=== PATIENT | female | born 1950 | race Caucasian/White ===

== ENCOUNTER 2017-04-05 20:11 | Emergency (ER) | payer MEDICARE, MEDICAID, SELFPAY ==
[2017-04-05 20:12] VITALS: BP 131/72; PULSE 88; RESP 16; TEMP 36.3; BMI 35.9
[2017-04-05] MEDS: 0.9% Normal Saline 1,000 ML 1000 ML IV (22:28)
[2017-04-05] MEDS: Ondansetron 4 MG/2 ML Vial IV (22:28)
--- NOTE | 2017-04-05 22:32 | ED.VISSUMM ---
- ER Visit Summary Date of Service: 04/05/17 Chief Complaint: Nausea, diarrhea History of Present Illness: The patient is a 66 F here with daughter with nausea and diarrhea for more than 10 days. Was discharged from [facility] 10 days after 3 day stay. States had similar symptoms. Chronic kidney disease. States over past 3 days has not eaten. Decreased appetite with her nausea. No vomiting. No fevers. No chest pains or cough. No urinary symptoms. In addition states her blood sugars have run high in the 500s today. She is on Lantus 55 units at night. She is also on Januvia once a day. Diabetes managed by her PCP. No recent adjustments. Saw her PCP today, sent to the emergency department. She states she was at [facility] today, labs were run, states nothing was done therefore they came here. They state did not p.o. challenge her. In addition states she gave herself 65 units of Lantus at 2 PM due to her high sugars. She is not on any short acting insulin. States she is having 3 episodes of diarrhea per day since being discharged. No recent antibiotics. Physical Examination: General: Alert and oriented ?3, no acute distress. Nontoxic HEENT: Normocephalic, atraumatic. Dry mucosa membranes Neck: supple, nontender. Cardiovascular: Regular rate and rhythm, no murmurs Respiratory: Normal breath sounds, symmetric, no distress Abdomen: Soft, nontender, nondistended Extremities: Nontender, no edema, pulses intact ?4 Neuro: no focal neurological deficits. Test Results: CBC: Normal. BMP creatinine 2.24. Potassium 3.1. Anion gap 8, blood glucose 59. Ketone negative. Emergency Department Course and Treatment: Patient nontoxic. Dry mucosa membranes. She given IV fluids and Zofran. Symptoms improved. Potassium 3.1, orally replaced. Glucose did return a 59, she is asymptomatic. She is given glucose orally along with yogurt. Tolerating oral intake. Creatinine 2.24. Obtain records from [facility] with stable creatinine. Continue oral hydration at home. They request docketing specialist, she is given ALIZE wang information for follow-up with her diabetes. Prescription for Zofran along with potassium given. She will continue oral hydration at home. She will monitor sugars and follow-up as an outpatient. She will return if any worsening symptoms. Treatment Plan: Symptomatic Disposition: Discharge Impression: 1. Nausea resolved 2. Diarrhea- stable 3. Chronic kidney disease 4. History diabetes This note was generated with [email or web address] dictation software. It may contain incorrect words, spelling, and punctuation that were not noted in review of the chart prior to signing ED Disposition - Plan for ED Patient: Disposition: Home or Assisted Living Chief Complaint: General Illness Diagnosis: Chronic kidney disease, History of diabetes mellitus, Nausea, Hypokalemia Instructions: ED Diet Vomiting Diarrhea, ED Renal Failure Chronic Prescriptions: Ondansetron [Zofran Odt] 8 mg PO Q8H PRN PRN #10 PRN Reason: Nausea Potassium Chloride [K-Dur] 20 meq PO DAILY #7 tablet Referrals: Radha Nettles [Primary Care Provider] - Louisa Wang SCHOOL BOAT DRIVER-C [Nurse Practitioner] - 3-5 Days
--- NOTE | 2017-04-05 22:35 | ED.DCSUM_ITS ---
- ER Visit Summary Date of Service: 04/05/17 Chief Complaint: Nausea, diarrhea History of Present Illness: The patient is a 66 F here with daughter with nausea and diarrhea for more than 10 days. Was discharged from [facility] 10 days after 3 day stay. States had similar symptoms. Chronic kidney disease. States over past 3 days has not eaten. Decreased appetite with her nausea. No vomiting. No fevers. No chest pains or cough. No urinary symptoms. In addition states her blood sugars have run high in the 500s today. She is on Lantus 55 units at night. She is also on Januvia once a day. Diabetes managed by her PCP. No recent adjustments. Saw her PCP today, sent to the emergency department. She states she was at [place] [facility] today, labs were run, states nothing was done therefore they came here. They state did not p.o. challenge her. In addition states she gave herself 65 units of Lantus at 2 PM due to her high sugars. She is not on any short acting insulin. States she is having 3 episodes of diarrhea per day since being discharged. No recent antibiotics. Physical Examination: General: Alert and oriented ?3, no acute distress. Nontoxic HEENT: Normocephalic, atraumatic. Dry mucosa membranes Neck: supple, nontender. Cardiovascular: Regular rate and rhythm, no murmurs Respiratory: Normal breath sounds, symmetric, no distress Abdomen: Soft, nontender, nondistended Extremities: Nontender, no edema, pulses intact ?4 Neuro: no focal neurological deficits. Test Results: CBC: Normal. BMP creatinine 2.24. Potassium 3.1. Anion gap 8, blood glucose 59. Ketone negative. Emergency Department Course and Treatment: Patient nontoxic. Dry mucosa membranes. She given IV fluids and Zofran. Symptoms improved. Potassium 3.1, orally replaced. Glucose did return a 59, she is asymptomatic. She is given glucose orally along with yogurt. Tolerating oral intake. Creatinine 2.24. Obtain records from [facility] with stable creatinine. Continue oral hydration at home. They request ui ux web developer, she is given ALIZE wang information for follow-up with her diabetes. Prescription for Zofran along with potassium given. She will continue oral hydration at home. She will monitor sugars and follow-up as an outpatient. She will return if any worsening symptoms. Treatment Plan: Symptomatic Disposition: Discharge Impression: 1. Nausea resolved 2. Diarrhea- stable 3. Chronic kidney disease 4. History diabetes This note was generated with [employer] dictation software. It may contain incorrect words, spelling, and punctuation that were not noted in review of the chart prior to signing ED Disposition - Plan for ED Patient: Disposition: Home or Assisted Living Chief Complaint: General Illness Diagnosis: Chronic kidney disease, History of diabetes mellitus, Nausea, Hypokalemia Instructions: ED Diet Vomiting Diarrhea, ED Renal Failure Chronic Prescriptions: Ondansetron [Zofran Odt] 8 mg PO Q8H PRN PRN #10 PRN Reason: Nausea Potassium Chloride [K-Dur] 20 meq PO DAILY #7 tablet Referrals: Radha Nettles [Primary Care Provider] - Louisa Wang FOOD SERVICE CLERK-C [Nurse Practitioner] - 3-5 Days
[2017-04-05 22:42] LABS: Hematocrit 37.1 % (37-47); Hemoglobin 11.9 g/dl (12.0-15.0); Mean Corp Hgb Conc 32.1 g/gl (32-36); Mean Corpuscular Volume 93.5 fL (81-99); Mean Platelet Vol. 9.4 fl (6.2-12.0); Platelet Count 353 K/mm3 (150-450); RBC Distribution Width CV 13.2 % (11.6-14.6); Red Blood Count 3.97 M/mm3 (4.2-5.4); Scan Indicated on CBC? Y/N NO; White Blood Count 8.1 K/mm3 (4.4-11.0)
[2017-04-05 22:51] LABS: Bedside Glucose 59 mg/dL (70-110)
[2017-04-05 22:55] LABS: Anion Gap 8 (5-15); BUN 17 mg/dL (7-18); BUN/Creat Ratio 7.6 RATIO (10-20); Calcium,Total 9.3 mg/dL (8.5-10.1); Chloride 104 mmol/L (98-107); Creatinine, Serum 2.24 mg/dL (0.55-1.02); EST Glomerular Filtration Rate 23 mL/min (>60); Est Glom Filt Rate - Afr Amer 28 mL/min (>60); Estimated Creatinine Clearance 21.62 ml/min; Glucose 59 mg/dL (74-106); Potassium 3.1 mmol/L (3.5-5.1); Sodium Level 140 mmol/L (136-145)
[2017-04-05 23:21] LABS: Bedside Glucose 104 mg/dL (70-110)
[2017-04-06 00:35] VITALS: BP 129/72; PULSE 71; RESP 16; O2SAT 97
== END 2017-04-06 00:36 | disposition home or self-care (01) ==
PROVIDERS: Emergency Provider Emergency Medicine; Family Provider Family Medicine; PCP Family Medicine
DX: R11.0 Nausea (principal); R19.7 Diarrhea, unspecified; E11.9 Type 2 diabetes mellitus without complications; N18.4 Chronic kidney disease, stage 4 (severe); I12.9 Hypertensive chronic kidney disease with stage 1 through stage 4 chronic kidney disease, or unspecified chronic kidney disease; Z72.0 Tobacco use
CPT/HCPCS: 80048; 82009; 82962; 85027; 96361; 96374; 99284; J7030; A4216; J2405

== ENCOUNTER → 2017-08-02 16:05 | Outpatient (CLI) | payer MEDICARE, MEDICAID, SELFPAY ==
[2017-08-02 17:41] LABS: ALB/GLOB Ratio 0.7 RATIO (0.9-2.4); AST(SGOT) 12 U/L (15-37); Alanine Aminotransfer ALT/SGPT 12 U/L (13-56); Albumin, Serum 2.9 g/dL (3.2-5.0); Alkaline Phosphatase 68 U/L (45-117); Amylase 22 U/L (25-115); Anion Gap 8 (5-15); BUN 16 mg/dL (7-18); BUN/Creat Ratio 7.5 RATIO (10-20); Calcium,Total 9.2 mg/dL (8.5-10.1); Chloride 107 mmol/L (98-107); Creatinine, Serum 2.12 mg/dL (0.55-1.02); EST Glomerular Filtration Rate 25 mL/min (>60); Est Glom Filt Rate - Afr Amer 30 mL/min (>60); Globulin 3.9 g/dL (2.2-4.2); Glucose 267 mg/dL (74-106); Lipase 147 U/L (73-393); Potassium 4.2 mmol/L (3.5-5.1); Protein, Total 6.8 g/dL (6.4-8.2); Sodium Level 136 mmol/L (136-145)
== END ==
PROVIDERS: Family Provider Family Medicine; PCP Internal Medicine; Visit Provider Internal Medicine
DX: R10.9 Unspecified abdominal pain (principal)
CPT/HCPCS: 36415; 80053; 82150; 83690

== ENCOUNTER → 2017-09-07 14:37 | Outpatient (CLI) | payer MEDICARE, MEDICAID, SELFPAY ==
--- NOTE | 2017-09-07 15:00 | EKG12_ITS ---
Test Reason : OP Blood Pressure : / mmHG Vent. Rate : 073 BPM Atrial Rate : 073 BPM P-R Int : 166 ms QRS Dur : 092 ms QT Int : 414 ms P-R-T Axes : 063 010 045 degrees QTc Int : 456 ms Normal sinus rhythm Normal ECG Confirmed by MADISON JACOBS, ANTHONY ([id number]), editorial project manager CECY CARUSO ([id number] on 09/09/2017 1:25:08 PM Referred By: Ricardo Cao Confirmed By:ANTHONY WALLACE MD
[2017-09-07 16:09] LABS: Cholesterol 327 mg/dL (200); High Density Lipoprotein 65 mg/dL; Triglycerides 310 mg/dL; Very Low Density Lipoprotein 62 mg/dL (5-40)
[2017-09-07 21:29] LABS: Hemoglobin A1c 8.1 % (4.2-6.3)
== END ==
PROVIDERS: Family Provider Internal Medicine; PCP Internal Medicine; Visit Provider Internal Medicine
DX: E11.9 Type 2 diabetes mellitus without complications (principal)
CPT/HCPCS: 36415; 80061; 83036; 93005

== ENCOUNTER → 2017-10-22 09:49 | Outpatient (CLI) | payer MEDICARE, MEDICAID, SELFPAY ==
[2017-10-22 11:01] LABS: Absolute Lymphocyte Count 1.33 X10^3/ul (0.83-4.51); Basophil# 0.06 X10^3/uL; Basophil% 0.6 % (0-1); Eosinophil# 1.12 X10^3/uL; Eosinophils% 11.2 % (0-5); Hematocrit 36.1 % (37-47); Hemoglobin 11.5 g/dl (12.0-15.0); Lymphocyte # 1.33 X10^3/ul (4.0); Lymphocyte % 13.3 % (19-41); Mean Corp Hgb Conc 31.9 g/gl (32-36); Mean Corpuscular Hgb 29.9 pg (27.0-32.0); Mean Corpuscular Volume 93.8 fL (81-99); Mean Platelet Vol. 9.4 fl (6.2-12.0); Monocyte# 0.43 X10^3/uL; Monocyte% 4.3 % (0-10); Neutrophil % 70.3 % (47-70); Platelet Count 296 K/mm3 (150-450); RBC Distribution Width SD 46.1 fl (35.1-43.9); Red Blood Count 3.85 M/mm3 (4.2-5.4)
[2017-10-22 11:04] LABS: POSITIVE COUNT NO; POSITIVE DIFFERENTIAL NO; POSITIVE MORPHOLOGY NO
[2017-10-22 11:19] LABS: Albumin, Serum 3.2 g/dL (3.2-5.0); BUN 21 mg/dL (7-18); Calcium,Total 9.3 mg/dL (8.5-10.1); Chloride 110 mmol/L (98-107); EST Glomerular Filtration Rate 25 mL/min (>60); Est Glom Filt Rate - Afr Amer 30 mL/min (>60); Glucose 185 mg/dL (74-106); Phosphorus 3.9 mg/dL (2.5-4.9); Potassium 4.6 mmol/L (3.5-5.1); Sodium Level 143 mmol/L (136-145)
== END ==
PROVIDERS: Family Provider Internal Medicine; PCP Internal Medicine; Visit Provider Internal Medicine Nephrology
DX: N18.4 Chronic kidney disease, stage 4 (severe) (principal)
CPT/HCPCS: 36415; 80069; 81001; 82043; 82570; 84156; 84550; 85025

== ENCOUNTER → 2018-01-14 09:57 | Outpatient (CLI) | payer MEDICARE, MEDICAID, SELFPAY ==
[2018-01-14 11:18] LABS: Hemoglobin A1c 9.4 % (4.2-6.3)
--- OUTSIDE RECORDS SUMMARY | 2018-03-10 19:33 | XMS RPT_ITS ---
:1950 Author Organization OHIP Support Name Relationship Address Phone PRABHA JAVED Unavailable [address] + [address] [place] [id number] R Unavailable Unavailable Unavailable JAVED, CRYSTAL Unavailable [address] + [address] [place] [id number] R Unavailable Unavailable Unavailable JAVED, CRYSTAL Unavailable Unavailable + JAVED, CRYSTAL Unavailable [address] + [address] [place] [id number] R Unavailable Unavailable Unavailable JAVED, CRYSTAL Unavailable [address] + [address] [id number] R Unavailable Unavailable Unavailable JAVED, CRYSTAL Unavailable [address] + [address] [place] [id number] R Unavailable Unavailable Unavailable JAVED, CRYSTAL Unavailable [address] + [address] [id number] R Unavailable Unavailable Unavailable JAVED, CRYSTAL Unavailable [address] + [address] [place] [id number] R Unavailable Unavailable Unavailable JAVED, CRYSTAL Unavailable [address] + [address] [id number] R Unavailable Unavailable Unavailable JAVED, CRYSTAL Unavailable [address] + [address] [place] [id number] R Unavailable Unavailable Unavailable JAVED, CRYSTAL Unavailable [address] + [address] [place] [id number] R Unavailable Unavailable Unavailable JAVED, CRYSTAL Unavailable [address] + [address] [phone] R Unavailable Unavailable Unavailable JAVED, CRYSTAL Unavailable [address] + [address] [phone] R Unavailable Unavailable Unavailable JAVED, CRYSTAL Unavailable Unavailable + RUEL CURRY Unavailable Unavailable + PRABHA JAVED Unavailable [address] [facility] [address] [place] [id number] R Unavailable Unavailable Unavailable Care Team Providers Name Role Phone Tho Radha A Attending Unavailable Longsdorf, Radha A Primary Care Unavailable Longsdorf, Radha A Admitting Unavailable Longsdorf, Radha A Attending Unavailable Longsdorf, Radha A Primary Care Unavailable Longsdorf, Radha A Primary Care Unavailable Lennox High Admitting Unavailable Lennox High Attending Unavailable VIRGINIAS, AZJIGAR Admitting Unavailable BAKHOUS, AZIZ Attending Unavailable Longsdorf, Radha A Primary Care Unavailable BAKHOUS, AZIZ Admitting Unavailable BAKHOUS, AZIZ Attending Unavailable Longsdorf, Radha A Primary Care Unavailable Longsdorf, Radha A Referring Unavailable Longsdorf, Radha A Primary Care Unavailable Corey Parry Admitting Unavailable Corey Parry Attending Unavailable MD Misha Brown MD Admitting Unavailable MD Misha Brown MD Attending Unavailable Longsdorf, Radha A Primary Care Unavailable Corey Parry Admitting Unavailable HoracioorsovCorey Attending Unavailable Longsdorf, Radha A Primary Care Unavailable Longsdorf, Radha A Attending Unavailable Longsdorf, Radha A Primary Care Unavailable Longsdorf, Radha A Attending Unavailable Longsdorf, Radha A Primary Care Unavailable Longsdorf, Radha A Primary Care Unavailable Bala Ibarra Admitting Unavailable Bala Ibarra Attending Unavailable Nicholas, Qarab H Consulting Unavailable Longsdorf, Radha A Attending Unavailable Longsdorf, Radha A Primary Care Unavailable Longsdorf, Radha A Admitting Unavailable Longsdorf, Radha A Primary Care Unavailable Ivanauskgómez, Saulius Admitting Unavailable Ivanaeve Saulius Attending Unavailable Misha Brown Admitting Unavailable Misha Brown Attending Unavailable Longsdorf, Radha A Primary Care Unavailable Misha Brown Admitting Unavailable Misha Brown Attending Unavailable Longsdorf, Radha A Primary Care Unavailable Stephanie, Misha D Admitting Unavailable Stephanie, Misha D Attending Unavailable Longsdorf, Radha A Primary Care Unavailable Bakhous, Aziz Admitting Unavailable Bakhous, Aziz Attending Unavailable Longsdorf, Radha A Primary Care Unavailable Sleik, Khaled Attending Unavailable Longsdorf, Radha A Primary Care Unavailable Sleik, Khaled Attending Unavailable Longsdorf, Radha A Primary Care Unavailable Stephanei, Misha D Admitting Unavailable Stephanie, Misha D Attending Unavailable Longsdorf, Radha A Primary Care Unavailable Sleik, Khaled Attending Unavailable Longsdorf, Radha A Primary Care Unavailable Sleik, Khaled Attending Unavailable Longsdorf, Radha A Primary Care Unavailable Longsdorf, Radha A Primary Care Unavailable Ivanauskas, Saulius Admitting Unavailable Ivanauskas Saulius Attending Unavailable Longsdorf, Radha A Primary Care Unavailable Lennox High Admitting Unavailable Lennox High Attending Unavailable Bakhous, Aziz Admitting Unavailable Bakhous, Aziz Attending Unavailable Longsdorf, Radha A Primary Care Unavailable DAVID YING Attending Unavailable LONGSDORF, RADHA WEN Primary Care Unavailable RIEHMSANDRAY L Attending Unavailable SELF, SELF Referring Unavailable RIEHM, JES L Attending Unavailable RIEHM, JES L Referring Unavailable RIEHM, JES L Attending Unavailable RIEHM, JES L Referring Unavailable Le, Mir Attending Unavailable LONGSDORF, RADHA Primary Care Unavailable Louisa Solorzano FOREIGN EXCHANGE CLERK-C Attending Unavailable LONGSDORF, RADHA Referring Unavailable LONGSDORF, RADHA Primary Care Unavailable Oleghe, Efewongbe Attending Unavailable LONGSDORF, RADHA Referring Unavailable Oleghe, Efewongbe Attending Unavailable LONGSDORF, RADHA Referring Unavailable LONGSDORF, RADHA Primary Care Unavailable Oleghe, Efewongbe Attending Unavailable Oleghe, Efewongbe Referring Unavailable LONGSDORF, RADHA Primary Care Unavailable Oleghe, Efewongbe Attending Unavailable Oleghe, Efewongbe Referring Unavailable LONGSDORF, RADHA Primary Care Unavailable Oleghe, Efewongbe Attending Unavailable Oleghe, Efewongbe Referring Unavailable Oleghe, Efewongbe Primary Care Unavailable Oleghe, Efewongbe Attending Unavailable Oleghe, Efewongbe Referring Unavailable Oleghe, Efewongbe Primary Care Unavailable Paulie Wallace Attending Unavailable Oleghe, Efewongbe Referring Unavailable Oleghe, Efewongbe Attending Unavailable Oleghe, Efewongbe Referring Unavailable Bakhous, Aziz Attending Unavailable Oleghe, Efewongbe Primary Care Unavailable Bakhous, Aziz Referring Unavailable Oleghe, Efewongbe Attending Unavailable Oleghe, Efewongbe Referring Unavailable Oleghe, Efewongbe Primary Care Unavailable Oleghe, Efewongbe Attending Unavailable Oleghe, Efewongbe Referring Unavailable Oleghe, Efewongbe Primary Care Unavailable PROBLEMS PROBLEMS DATE TYPE CONDITION / CODE ATTENDING STATUS SOURCE 10/31/2017 Unknown E11.9 - Type 2 Oleghe, Active [place] diabetes mellitus [facility] without Hospital complications / Repository E11.9(ICD-10) 10/31/2017 Unknown Z79.4 - intermediate card tender Oleghe, Active [place] (current) use of [facility] insulin / Hospital Z79.4(ICD-10) Repository 10/31/2017 Unknown Z12.31 - Encounter Oleghe, Active [place] for screening [facility] mammogram for Hospital malignant neoplasm Repository of breast / Z12.31(ICD-10) 10/31/2017 Unknown M81.0 - Age-related Oleghe, Active [place] osteoporosis [facility] without current Hospital pathological Repository fracture / M81.0(ICD-10) 10/12/2017 Unknown R42 - Dizziness and MoodisPaulie muro Active [place] giddiness / Community R42(ICD-10) Hospital Repository 08/16/2017 Unknown R10.9 - Unspecified Oleghe, Active [place] abdominal pain / [facility] R10.9(ICD-10) Hospital Repository 08/03/2017 Unknown I10 - Essential Oleghe, Active [place] (primary) [facility] hypertension / Hospital I10(ICD-10) Repository 06/03/2017 Admitting Pain in left hip / JES DANIEL[facility] Diagnosis M25.552(ICD-10) System ([place]) Repository 06/03/2017 Admitting Pain in left knee / JES DANIELSON Active [facility] Diagnosis M25.562(ICD-10) [place] ([place] Repository PROCEDURES PROCEDURES No Procedure Records FoundRESULTS RESULTS HEMOGLOBIN A1C Collected: 01/14/2018 Status: F Source: [place] 10:21 AM [facility] [place] TYPE CODE TESTS RESULT OUT OF RANGE REFERENCE UNITS LAB L501.9985 4.2-6.3 % High HGB A1C 9.4 Performed By: #### L501.9985 #### [place] [facility] [address] [place], [address] INTERNAL MEDICINE Observed: 11/11/2017 Status: F Source: [place] OFFICE VISIT 12:53 PM [facility] [address] [place] [address] [place] [address] OFFICE VISIT Date of Service: 10/31/17 MR#: [id number] Acct: [id number] Name: JOSH JAVED Karely Rep #: [id number] : 1950 Provider: Ricardo Cao MD Age/Sex: 67/F Location: [facility] Status: Signed Intake Vital Signs10/31/17 Height 5 ft 4 in Intake Visit Reasons: 1 mo f/u Chief Complaint: follow-up visit Is patient in pain?: No Allergies azithromycin Allergy (Severe, Verified 08/02/17 15:02) Diarrhea cefaclor [From Ceclor] Allergy (Severe, Verified 08/02/17 15:02) Unknown morphine Allergy (Severe, Verified 08/02/17 15:02) Go Nuts Penicillins Allergy (Severe, Verified 08/02/17 15:02) Unknown Medications acetaminophen ER 650 mg tablet,extended release 650 mg PO TID tab 05/02/17 [History Confirmed 08/02/17] gytjoie-lsmtxezxuaplv-qcyvlbdx 250 mg-250 mg-65 mg tablet 1 tab PO BID tab 05/02/17 [History Confirmed 09/23/17] OneTouch Ultra2 kit See Dose Instructions .ROUTE .MEDSUPPLY #1 ea NS 05/05/17 [Rx Confirmed 08/02/17] insulin glargine (U- 100) 100 unit/mL subcutaneous solution 48 unit SC QHS #10 ml 08/02/17 [Rx Confirmed 08/02/17] ondansetron HCl 4 mg tablet 4 mg PO BID-TID PRN #20 tab 08/02/17 [Rx Confirmed 08/02/17] trazodone 150 mg tablet 300 mg PO QDAY tab 08/02/17 [History Confirmed 08/02/17] duloxetine 30 mg capsule,delayed release 90 mg PO QDAY cap 09/23/17 [History Confirmed 09/23/17] ezetimibe 10 mg tablet 10 mg PO DAILY #90 tab 09/23/17 [Rx Confirmed 09/23/17] sitagliptin 100 mg tablet 100 mg PO QDAY #90 tab 09/23/17 [Rx Confirmed 09/23/17] flash glucose scanning reader See Dose Instructions .ROUTE .MEDSUPPLY #1 ea 11/04/17 [Rx] Post menopausal: Yes PFSH Medical History Environmental allergies (Chronic) Anxiety and depression (Chronic) Arthritis (Chronic) Back problem (Chronic) Bone fracture (Chronic) Cataracts, bilateral (Chronic) Diabetes type 2, controlled (Chronic) GI problem (Chronic) Headache (Chronic) HTN (hypertension) (Chronic) High cholesterol (Chronic) High triglycerides (Chronic) IBS (irritable bowel syndrome) (Chronic) Kidney disease (Chronic) Osteoporosis (Chronic) Surgical History History of cholecystectomy (Acute) History of hysterectomy (Acute) Family History Unknown Arthritis Breast cancer Diabetes Heart disease Hypertension High cholesterol Kidney disease Mother Anxiety Arthritis blood clots Depression Hypertension H/O ulcer disease Osteoporosis Father Anxiety Arthritis Depression Myocardial infarction Hypertension Kidney disease Grandmother Myocardial infarction Heart disease Social History Smoking Status: Current some day smoker alcohol intake: never substance use type: does not use HPI HPI Chief Complaint: follow-up visit Details: JOSH JAVED, is a 67yo F who presents to the office today for follow-up of her chronic medical conditions. She has a chronic history of insulin-dependent diabetes mellitus which is largely poorly controlled. She has been inconsistently taking her insulin and has noted blood sugar swings. She does not properly with a log at this time. She reports a history of osteoporosis diagnosed several years ago however is currently not on medication and does not take calcium or vitamin D supplements. ROS Const Constitutional: No weight change, body ache, chills, fatigue, sleep problems, fever(s), change in appetite, snoring, weakness, frequent falls, headache(s) or excessive sweating Eyes Eyes: No change in vision, eye pain, light sensitivity or blurry vision ENT ENT: No headache(s), abnormal hearing, ear pain, tinnitus, nasal congestion, sore throat or neck pain Resp Respiratory: No snoring, cough, shortness of breath or wheezing Cardio Cardiology: No excessive sweating, chest pain at rest, chest pain with exertion, shortness of breath, dyspnea on exertion, palpitations, orthopnea or lightheadedness Gastro GI: No abdominal pain, change in bowel habits, constipation, diarrhea, vomiting, nausea/dyspepsia or cramping Genitourinary-Female: No burning urination, painful urination, urinary incontinence, urinary frequency, abnormal vaginal bleeding, pelvic pain or other Musc Musculoskeletal: No neck pain, abnormal walking, joint pain, back pain, limited range of motion, numbness, tingling or muscle weakness Skin Skin: No redness, dry skin, itching, lesions, wounds or rash Neuro Neurology: No weakness, frequent falls, headache(s), abnormal hearing, abnormal walking, numbness, tingling, abnormal speech, dizziness or memory loss Psych Psychiatric: No change in appetite, No memory loss, No anxiety, No depression, No Thoughts of harming yourself/Others Endo Endocrine: No fatigue, excessive sweating, cold intolerance, increased thirst/drinking, heat intolerance, flushing or increased hunger Aller/Imm Allergy/Immunologic: No wheezing, itchy eyes, hives or seasonal allergy symptoms Lyle/Lymp Hematologic/Lymphatic: No easy bleeding, easy bruising or enlarged lymph nodes Exam Const General: cooperative, no acute distress Orientation: alert, awake, oriented x3 [facility] Head: atraumatic, normocephalic Ears: hearing grossly normal bilaterally Resp Effort AND Inspection: normal respiratory effort, able to speak in complete sentences Auscultation: Bilateral: Clear to Auscultation Cardio Rate: regular rate Rhythm: regular rhythm Heart Sounds: S1 normal, S2 normal GI Palpation: soft, no hepatosplenomegaly Musc Musculoskeletal: No muscle weakness Neuro General: alert, awake, oriented x3, moves all extremities, CN's II-XI intact bilaterally Extrem General: no clubbing, cyanosis or edema Psych Appearance: grossly normal Mood: congruent mood Affect: normal affect Assessment AND Plan 1. Diabetes mellitus type 2, insulin dependent E11.9; Z79.4 Plan Poorly controlled. This is likely due to poor compliance. Compliance encouraged. Now open to diabetes education, she was referred. Advised to come with a log. Continue current medication. Orders Orders: Referrals: 2. Osteoporosis M81.0 Plan History of. Currently not on any medication or supplements. Repeat bone density ordered. Calcium and vitamin D supplements and strongly encouraged. Orders Orders: 3. CKD (chronic kidney disease), stage IV N18.4 Plan Stable. Currently follows up with nephrology. No TANA or ARB's per nephrology due to Renal failure. 4. Hyperlipidemia E78.5 Plan Poorly controlled. Patient not very tolerant to medications. Lifestyle and dietary modifications discussed. 5. Health care maintenance Z00.00 Plan Mammogram ordered. Not open to colonoscopy or flu shot. Has received her pneumonia vaccines. Not open to shingles vaccine at this time. This note was generated with [employer] software. It may contain incorrect words, spelling, and punctuation that were not noted in checking the note before signing. Plan Detail Other Orders Orders: Coding Level of Care Code Off vis,est,level 4 Diagnoses Diabetes mellitus type 2, insulin dependent E11.9; Z79.4 Osteoporosis M81.0 CKD (chronic kidney disease), stage IV N18.4 Hyperlipidemia E78.5 Health care maintenance Z00.00 11/11/17 1238 <Electronically signed by Ricardo Cao MD> Date Ricardo Cao MD Cosigner Signature: Date (if applicable) CC: MICROALB/CREAT RATIO Collected: 10/24/2017 Status: F Source: [place] 3:50 PM [facility] REPOSITORY TYPE CODE TESTS RESULT OUT OF REFERENCE UNITS RANGE LAB 86861742(L 0.0-1.9 mg/dL OINC) Ur High Microalbumin 7.3 LAB 27743084(L 20.0-300.0 mg/dL OINC) Ur Creat Normal 62.0 LAB 05321265(L 0-30 ug/mg OINC) Microalb/Creat High 118 Performed By: #### [id number] #### [facility] [place] [address] UA COMPLETE Collected: 10/24/2017 Status: F Source: [place] 3:26 PM [facility] REPOSITORY TYPE CODE TESTS RESULT OUT OF RANGE REFERENCE UNITS LAB 43254217( Yellow LOINC) Normal UA Color Yellow LAB 68545311( Clear LOINC) Normal UA Clarity Clear LAB 32182331( Negative LOINC) UA Glucose Abnormal 3+ LAB 66274247( Negative LOINC) Normal UA Bili Negative LAB 65060736( Negative LOINC) Normal UA Ketones Negative LAB 75911634( 1.003-1.030 LOINC) Normal UA Spec Grav 1.013 LAB 59372310( 4.6-8.0 LOINC) Normal UA pH 5.0 LAB 08239305( Negative LOINC) Normal UA Protein Negative LAB 60964655( mg/dL LOINC) Normal UA Urobilinogen Negative LAB 14184981( Negative LOINC) Normal UA Nitrite Negative LAB 53923872( Negative LOINC) Normal UA Blood Negative LAB 42951987( Negative LOINC) UA Leuk Est Abnormal 3+ LAB 81722634( 0-3 /HPF LOINC) UA RBC Abnormal 3-5 LAB 71495190( 0-5 /HPF LOINC) UA WBC Abnormal >50 LAB 30407736( 0-5 /HPF LOINC) Normal UA Squam Epithelial 0-5 LAB 86807484( None /HPF LOINC) UA Bacteria Abnormal 2+ LAB 14573997( Trace /LPF LOINC) UA Mucous Abnormal Trace Performed By: #### [id number] #### [facility] [address] [place] [address] U CREATININE Collected: 10/24/2017 Status: F Source: [place] 3:26 PM [facility] REPOSITORY TYPE CODE TESTS RESULT OUT OF RANGE REFERENCE UNITS LAB 70705585(L 20-300 mg/dL OINC) U Normal Creatinine 72 Performed By: #### [id number] #### [facility] [place] [address] U PROTEIN Collected: 10/24/2017 Status: F Source: [place] 3:26 PM [facility] REPOSITORY TYPE CODE TESTS RESULT OUT OF REFERENCE UNITS RANGE LAB 80969629(LO 1-14 mg/dL INC) Ur High Total Protein 25 Performed By: #### [id number] #### [facility] [address] [place] [address] CBC W/DIFF, AUTOMATED Collected: 10/22/2017 Status: F Source: [place] 10:05 AM [facility] [place] TYPE CODE TESTS RESULT OUT OF RANGE REFERENCE UNITS LAB L100.1000 4.4-11.0 K/mm3 Normal WBC 10.0 LAB L100.1200 4.2-5.4 M/mm3 Low RBC 3.85 LAB L100.1300 12.0-15.0 g/dl Low HGB 11.5 LAB L100.1400 37-47 % Low HCT 36.1 LAB L100.1500 81-99 fL Normal MCV 93.8 LAB L100.1600 27.0-32.0 pg Normal MCH 29.9 LAB L100.1700 32-36 g/gl Low MCHC 31.9 LAB L100.1810 11.6-14.6 % Normal RDW CV 14.0 LAB L100.1820 35.1-43.9 fl High RDW SD 46.1 LAB L100.1900 150-450 K/mm3 Normal PLT 296 LAB L100.2000 6.2-12.0 fl Normal MPV 9.4 LAB L100.2100 47-70 % High NEUT% 70.3 LAB L100.2200 19-41 % Low LY% 13.3 LAB L100.2300 0-10 % Normal MONO% 4.3 LAB L100.2400 0-5 % High EO% 11.2 LAB L100.2500 0-1 % Normal BASO% 0.6 LAB L100.2550 0.0-0.9 % Normal IM GRAN % 0.300 Result Comment: IG% - Immature Granulocytes (promyelocytes, myelocytes and metamyelocytes) > 1% indicates that a LEFT SHIFT is Present. LAB L100.2620 2.0-7.7 X10 3/uL Normal Absolute Neut 7.0 LAB L100.2720 0.83-4.51 X10 3/ul Normal Absolute Lymph 1.33 Performed By: #### L100.0100 #### [facility] [address] [place], [address] RENAL PROFILE Collected: 10/22/2017 Status: F Source: [place] 10:05 AM [facility] [place] TYPE CODE TESTS RESULT OUT OF RANGE REFERENCE UNITS LAB L501.0100 74-106 mg/dL High GLU 185 Result Comment: Fasting Glucose result greater than or equal to 126 mg/dL suggests DIABETES MELLITUS per A.D.A. criteria. Please note revised GLUCOSE reference range effective 2017. LAB L501.1000 7-18 mg/dL High BUN 21 LAB L501.1100 0.55-1.02 mg/dL High CREAT,SERUM 2.10 Result Comment: The validity of the calculated GFR AND GFRAA in patients over 70 years has not been determined. Clinical correlation is essential. LAB L501.1110 >60 mL/min Low EST GFR 25 Result Comment: Non- GFR Calc LAB L501.1115 >60 mL/min Low EST GFR - AA 30 Result Comment: GFR Calc LAB L501.1300 10-20 RATIO Normal BUN/CRE 10.0 LAB L501.1800 3.2-5.0 g/dL Normal ALB 3.2 LAB L501.2200 8.5-10.1 mg/dL CA Normal 9.3 LAB L501.2300 2.5-4.9 mg/dL Normal PHOS 3.9 LAB L501.5300 136-145 mmol/L NA Normal 143 LAB L501.5600 3.5-5.1 mmol/L K Normal 4.6 LAB L501.5900 98-107 mmol/L High CL 110 LAB L501.6100 21.0-32.0 mmol/L Normal CO2 25.0 Performed By: #### L500.3600, L501.1400 #### [facility] [address] [place], [place], [address] URIC ACID Collected: 10/22/2017 Status: F Source: [place] 10:05 AM [facility]POS[facility] TYPE CODE TESTS RESULT OUT OF RANGE REFERENCE UNITS LAB L501.1400 2.6-6.0 mg/dL Normal URIC 6.0 Result Comment: The drugs N-Acetylcysteine and Metamizole may falsely depress this assay. Performed By: #### L500.3600, L501.1400 #### [facility] [address] [place], [address] INTERNAL MEDICINE Observed: 09/23/2017 Status: F Source: [place] OFFICE VISIT 12:44 PM [facility] [address] [place] [address] [place] [address] OFFICE VISIT Date of Service: 09/23/17 MR#: [id number] Acct: [id number] Name: JOSH JAVED Rep #: [id number] : 1950 Provider: Ricardo Cao MD Age/Sex: 67/F Location: [facility] [place] Status: Signed Intake Vital Signs09/23/17 Height 5 ft 4 in Intake Visit Reasons: 1 MO FU Chief Complaint: follow-up visit Allergies azithromycin Allergy (Severe, Verified 08/02/17 15:02) Diarrhea cefaclor [From Ceclor] Allergy (Severe, Verified 08/02/17 15:02) Unknown morphine Allergy (Severe, Verified 08/02/17 15:02) Go Nuts Penicillins Allergy (Severe, Verified 08/02/17 15:02) Unknown Medications acetaminophen ER 650 mg tablet,extended release 650 mg PO TID tab 05/02/17 [History Confirmed 08/02/17] jkyorxx-gaiefmjkwjtqj-sreuxvmu 250 mg-250 mg-65 mg tablet 1 tab PO BID tab 05/02/17 [History Confirmed 09/23/17] HandMinderuch Ultra2 kit See Dose Instructions .ROUTE .MEDSUPPLY #1 ea NS 05/05/17 [Rx Confirmed 08/02/17] insulin glargine (U-100) 100 unit/mL subcutaneous solution 48 unit SC QHS #10 ml 08/02/17 [Rx Confirmed 08/02/17] omeprazole 40 mg capsule,delayed release 40 mg PO QDAY #60 cap 08/02/17 [Rx Confirmed 08/02/17] ondansetron HCl 4 mg tablet 4 mg PO BID-TID PRN #20 tab 08/02/17 [Rx Confirmed 08/02/17] trazodone 150 mg tablet 300 mg PO QDAY tab 08/02/17 [History Confirmed 08/02/17] amlodipine 5 mg tablet 5 mg PO QDAY #90 tab 09/23/17 [Rx Confirmed 09/23/17] duloxetine 30 mg capsule,delayed release 90 mg PO QDAY cap 09/23/17 [History Confirmed 09/23/17] ezetimibe 10 mg tablet 10 mg PO DAILY #90 tab 09/23/17 [Rx Confirmed 09/23/17] sitagliptin 100 mg tablet 100 mg PO QDAY #90 tab 09/23/17 [Rx Confirmed 09/23/17] PFSH Medical History Environmental allergies (Chronic) Anxiety and depression (Chronic) Arthritis (Chronic) Back problem (Chronic) Bone fracture (Chronic) Cataracts, bilateral (Chronic) Diabetes type 2, controlled (Chronic) GI problem (Chronic) Headache (Chronic) HTN (hypertension) (Chronic) High cholesterol (Chronic) High triglycerides (Chronic) IBS (irritable bowel syndrome) (Chronic) Kidney disease (Chronic) Osteoporosis (Chronic) Surgical History History of cholecystectomy (Acute) History of hysterectomy (Acute) Family History Unknown Arthritis Breast cancer Diabetes Heart disease Hypertension High cholesterol Kidney disease Mother Anxiety Arthritis blood clots Depression Hypertension H/O ulcer disease Osteoporosis Father Anxiety Arthritis Depression Myocardial infarction Hypertension Kidney disease Grandmother Myocardial infarction Heart disease Social History Smoking Status: Current some day smoker alcohol intake: never substance use type: does not use HPI HPI Chief Complaint: follow-up visit Details: JOSH JAVED, is a 67yo F who presents to the office today for follow-up of her blood work and her chronic medical conditions. She has no acute complaints at this time. She is scheduled to follow-up with gastroenterology in about 2 weeks however has had no visits scheduled with neurology. A1c is 8.1. Patient reports compliance with her diet and medications. She is not here with her blood sugar log. GFR is noted to be 25. She reports a history of chronic kidney disease and had been referred to a wood fence erector whom she has seen intermittently however has not followed up recently. ROS Const Constitutional: No weight change, body ache, chills, fatigue, sleep problems, fever(s), change in appetite, snoring, weakness, frequent falls, headache(s) or excessive sweating Eyes Eyes: No change in vision, eye pain, light sensitivity or blurry vision ENT ENT: No headache(s), abnormal hearing, ear pain, tinnitus, nasal congestion, sore throat or neck pain Resp Respiratory: No snoring, cough, shortness of breath or wheezing Cardio Cardiology: No excessive sweating, chest pain at rest, chest pain with exertion, shortness of breath, dyspnea on exertion, palpitations, orthopnea or lightheadedness Gastro GI: No abdominal pain, constipation, diarrhea, vomiting, nausea/dyspepsia or cramping Genitourinary-Female: No burning urination, painful urination, urinary incontinence, urinary frequency, abnormal vaginal bleeding, pelvic pain or other Musc Musculoskeletal: No neck pain, abnormal walking, joint pain, back pain, limited range of motion, numbness, tingling or muscle weakness Skin Skin: No redness, dry skin, itching, lesions, wounds or rash Neuro Neurology: No weakness, frequent falls, headache(s), abnormal hearing, abnormal walking, numbness, tingling, abnormal speech, dizziness or memory loss Psych Psychiatric: No change in appetite, No memory loss, No anxiety, No depression, No Thoughts of harming yourself/Others Endo Endocrine: No fatigue, excessive sweating, cold intolerance, increased thirst/drinking, heat intolerance, flushing or increased hunger Aller/Imm Allergy/Immunologic: No wheezing, itchy eyes, hives or seasonal allergy symptoms Lyle/Lymp Hematologic/Lymphatic: No easy bleeding, easy bruising or enlarged lymph nodes Exam Const General: cooperative, no acute distress Orientation: alert, awake, oriented x3 HENMT Head: atraumatic, normocephalic Ears: hearing grossly normal bilaterally Resp Effort AND Inspection: normal respiratory effort, able to speak in complete sentences Auscultation: Bilateral: Clear to Auscultation Cardio Rate: regular rate Rhythm: regular rhythm Heart Sounds: S1 normal, S2 normal GI Palpation: soft, no hepatosplenomegaly Musc Musculoskeletal: No muscle weakness Neuro General: alert, awake, oriented x3, moves all extremities, CN's II-XI intact bilaterally Extrem General: no clubbing, cyanosis or edema Psych Appearance: grossly normal Mood: congruent mood Affect: normal affect Assessment AND Plan 1. 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 Referral to diabetes education recommended however, the patient is not open to this at this time. Increase sitagliptin 200 mg daily. Continue insulin at current dose. Advised to keep blood sugar log and follow-up with us at next visit. 2. CKD (chronic kidney disease), stage IV N18.4 Plan GFR now down to 25. 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 Continue optimal blood sugar and pressure control. Avoid nephrotoxic agents. 3. Hyperlipidemia E78.5 Plan Chronic and poorly controlled. Patient states that she is poorly tolerant of the statins. Currently on Zetia which she reports compliance with. Due to her kidney function, she is not a good candidate for gemfibrozil or fenofibrate. Also not open to nutritional services. Continue current medications for now. Strict dietary modifications discussed. 4. Abdominal pain R10.9 Plan Stable. Scheduled to follow-up with Dr. Chiu. Will follow. 5. Dizziness R42 Plan Persistent. Advised to follow-up with neurology as recommended at her last visit. Follow-up and recommendations. This note was generated with [employer] software. It may contain incorrect words, spelling, and punctuation that were not noted in checking the note before signing. 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; Z79.4 CKD (chronic kidney disease), stage IV N18.4 Hyperlipidemia E78.5 Abdominal pain R10.9 Dizziness R42 09/23/17 1244 <Electronically signed by Ricardo Cao MD> Date Ricardo Cao MD Cosigner Signature: Date (if applicable) CC: 12 LEAD ELECTROCARDIOGRAM Observed: 09/09/2017 Status: F Source: [place] 1:25 PM [facility] Cardiovascular Services [address] [place] [address] 12 Lead EKG 09/07/17 1559 MR#: [id number] Acct: [id number] Name: JOSH JAVED Rep #: [id number] : 1950 67 From: Paulie Wallace MD Attending Dr: Ricardo Cao MD Status: REG CLI Ordering Dr: Ricardo Cao MD Date: 09/07/17 Location: LAB Sex: F C Admitted: Test Reason : OP Blood Pressure : / mmHG Vent. Rate : 073 BPM Atrial Rate : 073 BPM P-R Int : 166 ms QRS Dur : 092 ms QT Int : 414 ms P-R-T Axes : 063 010 045 degrees QTc Int : 456 ms Normal sinus rhythm Normal ECG Confirmed by MADISON JACOBS, PAULIE ([id number]), marketing editor CECY CARUSO ([id number]) on 09/09/2017 1:25:08 PM Referred By: Ricardo Cao Confirmed By:PAULIE WALLACE MD 09/09/17 1325 Date Paulie Wallace MD CC: Ricardo Cao MD Signed LIPID PROFILE Collected: 09/07/2017 Status: F Source: [place] 2:47 PM [facility] Order Comment: Comments: Fasting Comments: Fasting TYPE CODE TESTS RESULT OUT OF RANGE REFERENCE UNITS LAB L501.4900 200 mg/dL High CHOL 327 Result Comment: <200 mg/dL Desirable 200-240 mg/dL Borderline >240 mg/dL High Risk LAB L501.5000 mg/dL High TRIG 310 Result Comment: The drugs N-Acetylcysteine and Metamizole may falsely depress this assay. Serum Triglycerides Reference Interval Normal <150 mg/dL Borderline high 150 - 199 mg/dL High 200 - 499 mg/dL Very High > or = 500 mg/dL LAB L501.6400 mg/dL Normal HDL 65 Result Comment: The drugs N-Acetylcysteine and Metamizole may falsely depress this assay. Reference Range HDL <40 mg/dL Low HDL Cholesterol HDL >or= 60 mg/dL High HDL Cholesterol LAB L501.6500 0-130 mg/dL High LDL 200 LAB L501.6600 5-40 mg/dL High VLDL 62 Performed By: #### L500.4100, L501.9985 #### [facility] [address] [place], [address] HEMOGLOBIN A1C Collected: 09/07/2017 Status: F Source: [place] 2:47 PM [facility] TYPE CODE TESTS RESULT OUT OF RANGE REFERENCE UNITS LAB L501.9985 4.2-6.3 % High HGB A1C 8.1 Performed By: #### L500.4100, L501.9985 #### [facility] [address] [place], [address] INTERNAL MEDICINE Observed: 08/19/2017 Status: F Source: [place] OFFICE VISIT 12:43 PM [facility] [address] [place] [address] [place] [address] OFFICE VISIT Date of Service: 08/16/17 MR#: [id number] Acct: [id number] Name: JOSH JAVED Rep #: [id number] : 1950 Provider: Ricardo Cao MD Age/Sex: 67/F Location: [facility] Status: Signed Intake Vital Signs08/16/17 Height 5 ft 4 in Intake Visit Reasons: bowel trouble Chief Complaint: nausea and dizziness Is patient in pain?: Yes (stomach ) Pain scale (1-10): 8 Allergies azithromycin Allergy (Severe, Verified 08/02/17 15:02) Diarrhea cefaclor [From Ceclor] Allergy (Severe, Verified 08/02/17 15:02) Unknown morphine Allergy (Severe, Verified 08/02/17 15:02) Go Nuts Penicillins Allergy (Severe, Verified 08/02/17 15:02) Unknown Medications Duloxetine HCl [Duloxetine HCl] 1 tab PO DAILY 04/05/17 [History Confirmed 08/02/17] Ezetimibe [Zetia] 10 mg PO DAILY 04/05/17 [History Confirmed 08/02/17] Sitagliptin Phosphate [Januvia] 50 mg PO DAILY 04/05/17 [History Confirmed 08/02/17] acetaminophen ER 650 mg tablet,extended release 650 mg PO TID tab 05/02/17 [History Confirmed 08/02/17] wwrrtvl-gfhvcgtjufycd-mrlgicyo 250 mg-250 mg-65 mg tablet 1 tab PO BID tab 05/02/17 [History Confirmed 05/02/17] HandMinderuch Ultra2 kit See Dose Instructions .ROUTE .MEDSUPPLY #1 ea NS 05/05/17 [Rx Confirmed 08/02/17] amlodipine 5 mg tablet 5 mg PO QDAY #90 tab 08/02/17 [Rx Confirmed 08/02/17] insulin glargine (U-100) 100 unit/mL subcutaneous solution 48 unit SC QHS #10 ml 08/02/17 [Rx Confirmed 08/02/17] omeprazole 40 mg capsule,delayed release 40 mg PO QDAY #60 cap 08/02/17 [Rx Confirmed 08/02/17] ondansetron HCl 4 mg tablet 4 mg PO BID-TID PRN #20 tab 08/02/17 [Rx Confirmed 08/02/17] trazodone 150 mg tablet 300 mg PO QDAY tab 08/02/17 [History Confirmed 08/02/17] PFSH Medical History Environmental allergies (Chronic) Anxiety and depression (Chronic) Arthritis (Chronic) Back problem (Chronic) Bone fracture (Chronic) Cataracts, bilateral (Chronic) Diabetes type 2, controlled (Chronic) GI problem (Chronic) Headache (Chronic) HTN (hypertension) (Chronic) High cholesterol (Chronic) High triglycerides (Chronic) IBS (irritable bowel syndrome) (Chronic) Kidney disease (Chronic) Osteoporosis (Chronic) Surgical History History of cholecystectomy (Acute) History of hysterectomy (Acute) Family History Unknown Arthritis Breast cancer Diabetes Heart disease Hypertension High cholesterol Kidney disease Mother Anxiety Arthritis blood clots Depression Hypertension H/O ulcer disease Osteoporosis Father Anxiety Arthritis Depression Myocardial infarction Hypertension Kidney disease Grandmother Myocardial infarction Heart disease Social History Smoking Status: Current some day smoker alcohol intake: never substance use type: does not use HPI HPI Chief Complaint: nausea and dizziness Details: JOSH JAVED, is a 67yo F who presents to the office today for follow up on her abdominal pain which has been ongoing. Initially thought to be due to Latuda however, this has not improved with discontinuing Latuda. She also has a chronic history of dizziness and has noted worsening lately. She has not been evaluated for this. ROS Const Constitutional: No weight change, body ache, chills, fatigue, sleep problems, fever(s), change in appetite, snoring, weakness, frequent falls, headache(s) or excessive sweating Eyes Eyes: No change in vision, eye pain, light sensitivity or blurry vision ENT ENT: No headache(s), abnormal hearing, ear pain, tinnitus, nasal congestion, sore throat or neck pain Resp Respiratory: No snoring, cough, shortness of breath or wheezing Cardio Cardiology: No excessive sweating, chest pain at rest, chest pain with exertion, shortness of breath, dyspnea on exertion, palpitations, orthopnea or lightheadedness Gastro GI: Positive for abdominal pain, constipation and nausea/dyspepsia; no change in bowel habits, diarrhea, vomiting or cramping Genitourinary-Female: No burning urination, painful urination, urinary incontinence, urinary frequency, abnormal vaginal bleeding, pelvic pain or other Musc Musculoskeletal: No neck pain, abnormal walking, joint pain, back pain, limited range of motion, numbness, tingling or muscle weakness Skin Skin: No redness, dry skin, itching, lesions, wounds or rash Neuro Neurology: Positive for dizziness; no weakness, frequent falls, headache(s), abnormal hearing, abnormal walking, numbness, tingling, abnormal speech or memory loss Psych Psychiatric: No change in appetite, No memory loss, No anxiety, No depression, No Thoughts of harming yourself/Others Endo Endocrine: No fatigue, excessive sweating, cold intolerance, increased thirst/drinking, heat intolerance, flushing or increased hunger Aller/Imm Allergy/Immunologic: No wheezing, itchy eyes, hives or seasonal allergy symptoms Lyle/Lymp Hematologic/Lymphatic: No easy bleeding, easy bruising or enlarged lymph nodes Exam Const General: cooperative, no acute distress Orientation: alert, awake, oriented x3 HENMT Head: atraumatic, normocephalic Ears: hearing grossly normal bilaterally Resp Effort AND Inspection: normal respiratory effort, able to speak in complete sentences Auscultation: Bilateral: Clear to Auscultation Cardio Rate: regular rate Rhythm: regular rhythm Heart Sounds: S1 normal, S2 normal GI Palpation: soft, no hepatosplenomegaly Musc Musculoskeletal: No muscle weakness Neuro General: alert, awake, oriented x3, moves all extremities, CN's II-XI intact bilaterally Extrem General: no clubbing, cyanosis or edema Psych Appearance: grossly normal Mood: congruent mood Affect: normal affect Assessment AND Plan 1. Abdominal pain R10.9 Plan Persisting. No improvement with discontinuing Latuda. Labs done at last visit with no significant abnormality. Possibly Gastroparesis from poorly controlled DM. Patient also has Diabetic Neuropathy, Nephropathy and Retinopathy. Referred to GI to r/o other possibilities. Continue other management for now. Orders Referrals: 2. Dizziness R42 Plan Chronic. Possibly autonomic dysfunction from poorly controlled DM Referred to Neurology. Will follow. Orders Orders: Referrals: 3. 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 A1C ordered. Follow up with results. Continue current management. Orders Orders: 4. HTN (hypertension) I10 Plan Better controlled. EKG ordered. Will follow. 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 Status: Signed Intake Vital Signs08/02/17 Height 5 ft 4 in 08/02/17 Weight: 202 lb 08/02/17 Body Mass Index (BMI) 34.7 08/02/17 Blood Pressure 131/71 Intake Visit Reasons: EST CARE Chief Complaint: Est care Is patient in pain?: Yes (stomach) Pain scale (1-10): 8 Allergies azithromycin Allergy (Severe, Verified 08/02/17 15:02) Diarrhea cefaclor [From Ceclor] Allergy (Severe, Verified 08/02/17 15:02) Unknown morphine Allergy (Severe, Verified 08/02/17 15:02) Go Nuts Penicillins Allergy (Severe, Verified 08/02/17 15:02) Unknown Medications Duloxetine HCl [Duloxetine HCl] 1 tab PO DAILY 04/05/17 [History Confirmed 08/02/17] Ezetimibe [Zetia] 10 mg PO DAILY 04/05/17 [History Confirmed 08/02/17] Sitagliptin Phosphate [Januvia] 50 mg PO DAILY 04/05/17 [History Confirmed 08/02/17] acetaminophen ER 650 mg tablet,extended release 650 mg PO TID tab 05/02/17 [History Confirmed 08/02/17] rjckclk-hytznymhvlaav-kxdqlnjd 250 mg-250 mg-65 mg tablet 1 tab PO BID tab 05/02/17 [History Confirmed 05/02/17] DNS:Net Ultra2 kit See Dose Instructions .ROUTE .MEDSUPPLY #1 ea NS 05/05/17 [Rx Confirmed 08/02/17] amlodipine 5 mg tablet 5 mg PO QDAY #90 tab 08/02/17 [Rx Confirmed 08/02/17] insulin glargine (U-100) 100 unit/mL subcutaneous solution 48 unit SC QHS #10 ml 08/02/17 [Rx Confirmed 08/02/17] omeprazole 40 mg capsule,delayed release 40 mg PO QDAY #60 cap 08/02/17 [Rx Confirmed 08/02/17] ondansetron HCl 4 mg tablet 4 mg PO BID-TID PRN #20 tab 08/02/17 [Rx Confirmed 08/02/17] trazodone 150 mg tablet 300 mg PO QDAY tab 08/02/17 [History Confirmed 08/02/17] PFSH Medical History Environmental allergies (Chronic) Anxiety and depression (Chronic) Arthritis (Chronic) Back problem (Chronic) Bone fracture (Chronic) Cataracts, bilateral (Chronic) Diabetes type 2, controlled (Chronic) GI problem (Chronic) Headache (Chronic) HTN (hypertension) (Chronic) High cholesterol (Chronic) High triglycerides (Chronic) IBS (irritable bowel syndrome) (Chronic) Kidney disease (Chronic) Osteoporosis (Chronic) Surgical History History of cholecystectomy (Acute) History of hysterectomy (Acute) Family History Unknown Arthritis Breast cancer Diabetes Heart disease Hypertension High cholesterol Kidney disease Mother Anxiety Arthritis blood clots Depression Hypertension H/O ulcer disease Osteoporosis Father Anxiety Arthritis Depression Myocardial infarction Hypertension Kidney disease Grandmother Myocardial infarction Heart disease Social History Smoking Status: Current some day smoker alcohol intake: never substance use type: does not use HPI HPI Chief Complaint: Est care Details: JOSH JAVED, is a 67yo F who presents to the office today to establish care. She has a PMH as stated above. She currently follows up with ALIZE nicole NP for her DM care and had previously followed up with a PCP in [place]. She reports ongoing abdominal pain which per patient had been worked up at [place] without any significant abnormality. There is associated nausea which typically resolves with Zofran. She denies any known history of Gastric Ulcers. ROS Const Constitutional: No chills, fatigue, fever(s), frequent falls, malaise, weakness or sleep problems Eyes Eyes: No blurry vision, change in vision, double vision, discharge or visual disturbances ENT ENT: No abnormal hearing, ear pain, ear pressure, tinnitus or dizziness/vertigo Resp Respiratory: No cough, shortness of breath or wheezing Cardio Cardiology: No chest pain at rest, chest pain with exertion, shortness of breath, dyspnea on exertion, generalized swelling, irregular heart rhythm, lightheadedness, orthopnea, fast heart rate or palpitations Gastro GI: Positive for abdominal pain, change in bowel habits, constipation and diarrhea; no nausea/dyspepsia or vomiting Genitourinary-Female: No difficulty urinating, burning urination, painful urination, urinary incontinence, urinary frequency, urinary urgency, urinary hesitancy, urinary retention, Frequent nighttime urination/ nocturia, sexual problems, genital lesions, abnormal vaginal bleeding, pelvic pain, vaginal dryness, vaginal odor or Vaginal Itching Musc Musculoskeletal: No joint pain, back pain, joint swelling, limited range of motion, muscle weakness, numbness or tingling Skin Skin: No change in skin color, itching, rash or wounds Breast Breast: No breast lump or breast pain Neuro Neurology: No frequent falls, weakness, abnormal hearing, numbness, tingling, unsteady gait/balance, loss of vision, memory loss or visual disturbances Psych Psychiatric: No memory loss, No anxiety, No depression, No Thoughts of harming yourself/Others Endo Endocrine: No fatigue, heat intolerance, increased thirst/drinking, increased hunger or increased urination Aller/Imm Allergy/Immunologic: No wheezing, itchy eyes or seasonal allergy symptoms Lyle/Lymp Hematologic/Lymphatic: No easy bleeding, easy bruising or enlarged lymph nodes Exam Const General: cooperative, no acute distress Orientation: alert, awake, oriented x3 HENMT Head: atraumatic, normocephalic Ears: hearing grossly normal bilaterally Resp Effort AND Inspection: normal respiratory effort, able to speak in complete sentences Auscultation: Bilateral: Clear to Auscultation Cardio Rate: regular rate Rhythm: regular rhythm Heart Sounds: S1 normal, S2 normal GI Palpation: soft (Carmita umbilical tenderness.), no hepatosplenomegaly Musc Musculoskeletal: No muscle weakness Neuro General: alert, awake, oriented x3, moves all extremities, CN's II-XI intact bilaterally Extrem General: no clubbing, cyanosis or edema Psych Appearance: grossly normal Mood: congruent mood Affect: normal affect Assessment AND Plan 1. Abdominal pain R10.9 Plan Appears to have worsened after adjusting her dose of Latuda. Associated nausea which is well controlled with PRN Zofran. Will start a trial of PPI Continue Zofran. Records requested from prior PCP to see work up so far. She may benefit from a GI referral. Optimal blood sugar control encouraged as this may well be due to gastroparesis. Orders Orders: 2. HTN (hypertension) I10 Plan Stable. Not taken her medications in 3 months. Refill for Amlodipine 5 mg daily sent. Follow up in 1 month. This note was generated with [employer] software. It may contain incorrect words, spelling, and punctuation that were not noted in checking the note before signing. Plan Detail Other Medications New: Coding Level of Care Code Off vis,new,level 3 Diagnoses Abdominal pain R10.9 HTN (hypertension) I10 08/02/17 1620 <Electronically signed by Ricardo Cao MD> Date Ricardo Cao MD Cosigner Signature: Date (if applicable) CC: COMPREHENSIVE METABOLIC Collected: 08/02/2017 Status: F Source: [place] 4:12 PM [facility] TYPE CODE TESTS RESULT OUT OF RANGE REFERENCE UNITS LAB L501.0100 74-106 mg/dL High GLU 267 Result Comment: Glucose result greater than or equal to 200 mg/dL suggests DIABETES MELLITUS per A.D.A. criteria. Please note revised GLUCOSE reference range effective 2017. LAB L501.1000 7-18 mg/dL Normal BUN 16 LAB L501.1100 0.55-1.02 mg/dL High CREAT,SERUM 2.12 Result Comment: The validity of the calculated GFR AND GFRAA in patients over 70 years has not been determined. Clinical correlation is essential. LAB L501.1110 >60 mL/min Low EST GFR 25 Result Comment: Non- GFR Calc LAB L501.1115 >60 mL/min Low EST GFR - AA 30 Result Comment: GFR Calc LAB L501.1300 10-20 RATIO Low BUN/CRE 7.5 LAB L501.1500 6.4-8.2 g/dL Normal T PROT 6.8 LAB L501.1800 3.2-5.0 g/dL Low ALB 2.9 LAB L501.1950 2.2-4.2 g/dL Normal GLOB 3.9 LAB L501.2000 0.9-2.4 RATIO Low A/G 0.7 LAB L501.2200 8.5-10.1 mg/dL Normal CA 9.2 LAB L501.4100 15-37 U/L Low AST 12 LAB L501.4305 45-117 U/L Normal ALK P 68 LAB L501.4405 13-56 U/L Low ALT 12 LAB L501.4600 0.20-1.00 mg/dL Normal T BILI 0.30 LAB L501.5300 136-145 mmol/L Normal NA 136 LAB L501.5600 3.5-5.1 mmol/L Normal K 4.2 LAB L501.5900 98-107 mmol/L Normal CL 107 LAB L501.6100 21.0-32.0 mmol/L Normal CO2 21.0 LAB L501.6200 5-15 Normal GAP 8 Performed By: #### L500.4050, L501.2400, L501.2450 #### [facility] [address] [place], [address] AMYLASE Collected: 08/02/2017 Status: F Source: [place] 4:12 PM [facility] TYPE CODE TESTS RESULT OUT OF RANGE REFERENCE UNITS LAB L501.2400 25-115 U/L Low SHANA 22 Performed By: #### L500.4050, L501.2400, L501.2450 #### [facility] [address] [place], [address] LIPASE Collected: 08/02/2017 Status: F Source: [place] 4:12 PM [facility] TYPE CODE TESTS RESULT OUT OF RANGE REFERENCE UNITS LAB L501.2450 73-393 U/L Normal LIPASE 147 Performed By: #### L500.4050, L501.2400, L501.2450 #### [facility] [address] [place], [address] GLUCOSE POC Collected: 06/18/2017 Status: F Source: [place] 4:37 AM [facility] REPOSITORY TYPE CODE TESTS RESULT OUT OF REFERENCE UNITS RANGE LAB [id number](LO 70-99 mg/dL INC) High Glucose POC 118 Performed By: #### [id number] #### [place] [address] GLUCOSE POC Collected: 06/18/2017 Status: F Source: [place] 1:36 AM [facility] REPOSITORY TYPE CODE TESTS RESULT OUT OF REFERENCE UNITS RANGE LAB [id number](LO 70-99 mg/dL INC) High Glucose POC 379 Performed By: #### [id number] #### SUSANNA POC [address] [place] [address] GLUCOSE POC Collected: 06/17/2017 Status: F Source: [place] 10:54 PM [facility] REPOSITORY TYPE CODE TESTS RESULT OUT OF REFERENCE UNITS RANGE LAB [id number](LO 70-99 mg/dL INC) High Glucose POC 398 Performed By: #### [id number] #### SUSANNA POC [address] [place] [address] U DRUG SCREEN Collected: 06/17/2017 Status: F Source: [place] 7:09 PM [facility] REPOSITORY TYPE CODE TESTS RESULT OUT OF RANGE REFERENCE UNITS LAB [id number](LO ng/mL INC) Normal U Negative Amph Scr Result Comment: Results for medical use only. Confirmation of positive results will be done when requested. Specimens are kept for one week. LAB [id number](LOINC) ng/mL U Normal Odette Scr Negative LAB 11210418(LOINC) ng/mL U Normal Benzodia Scr Negative LAB [id number](LOINC) ng/mL U Normal Cannab Scr Negative LAB 19626370(LOINC) ng/mL U Normal Cocaine Scr Negative LAB 32090291(LOINC) ng/mL U Normal Opiate Scr Negative LAB 38399231(LOINC) ng/mL U Normal PCP Scr Negative Performed By: #### [id number] #### SUSANNA [facility] [id number] UA COMPLETE Collected: 06/17/2017 Status: F Source: MANDAEN 7:09 [facility] REPOSITORY TYPE CODE TESTS RESULT OUT OF RANGE REFERENCE UNITS LAB 90349713( Yellow LOINC) Normal UA Color Yellow LAB 30273264( Clear LOINC) UA Clarity Abnormal SltCloudy LAB 85888484( Negative LOINC) UA Glucose 3+ Abnormal LAB 59567923( Negative LOINC) Normal UA Bili Negative LAB 21324426( Negative LOINC) Normal UA Ketones Negative LAB 03231580( 1.003-1.030 LOINC) Normal UA Spec Grav 1.015 LAB 75805567( 4.6-8.0 LOINC) Normal UA pH 5.0 LAB 28215195( Negative LOINC) UA Protein 1+ Abnormal LAB 71950690( mg/dL LOINC) Normal UA Urobilinogen Negative LAB 07951190( Negative LOINC) Normal UA Nitrite Negative LAB 81355584( Negative LOINC) Normal UA Blood Negative LAB 67344189( Negative LOINC) UA Leuk Est 3+ Abnormal LAB 36367245( 0-3 /HPF LOINC) Normal UA RBC 0-3 LAB 05158545( 0-5 /HPF LOINC) UA WBC Abnormal 20-50 LAB 59127742( 0-5 /HPF LOINC) UA Squam Abnormal Epithelial 10-20 LAB 10495229( 0-2 /HPF LOINC) Normal UA Transitional 0-2 Epithelial LAB 05478716( None /HPF LOINC) UA Bacteria Abnormal Trace LAB 85419197( Trace /LPF LOINC) UA Mucous Abnormal Trace Performed By: #### [id number] #### SUSANNA Urinalysis Automated Subsection [address] [place], [place] [id number] CBC W/ AUTO DIFF Collected: 06/17/2017 Status: F Source: MANDAEN 6:32 PM [facility] REPOSITORY TYPE CODE TESTS RESULT OUT OF RANGE REFERENCE UNITS LAB 81123758(L 3.6-11.0 E3/mcL OINC) Normal WBC 9.9 LAB 04405931(L 3.90-5.40 E6/mcL OINC) Low RBC 3.24 LAB 74110056(L 12.0-16.0 G/DL OINC) Low Hgb 10.5 LAB 39374335(L 36.0-48.0 % OINC) Low Hct 30.0 LAB 66021432(L 11.5-14.5 % OINC) High RDW 14.9 LAB 53872226(L 27.0-31.0 pg OINC) High MCH 32.4 LAB 99710870(L 33.0-37.0 G/DL OINC) Normal MCHC 35.0 LAB 44899241(L 78.0-100.0 fL OINC) Normal MCV 92.7 LAB 29683142(L 7.4-11.0 fL OINC) Low MPV 7.3 LAB 93592869(L 130-400 E3/mcL OINC) Normal Platelet 340 Performed By: #### [id number] #### SUSANNA RemHemo [address] [place] [address] AUTO DIFF Collected: 06/17/2017 Status: F Source: [address] REPOSITORY Order Comment: Order Added by Discern Expert. TYPE CODE TESTS RESULT OUT OF RANGE REFERENCE UNITS LAB 05523935(L 37.0-75.0 % OINC) High Neutro Auto 75.1 LAB 44858844(L 20.0-55.0 % OINC) Low Lymph Auto 10.9 LAB 65161011(L 0.0-10.0 % OINC) Normal [place] Auto 5.1 LAB 47030221(L 0.0-11.0 % OINC) Normal Eos Auto 8.1 LAB 56929808(L 0.0-2.0 % OINC) Normal Basophil Auto 0.8 LAB 53931560(L 1.4-6.5 E3/mcL OINC) High Neutro 7.4 Absolute LAB 61853397(L 1.2-3.4 E3/mcL OINC) Low Lymph Absolute 1.1 LAB 09219723(L 0.0-0.7 E3/mcL OINC) Normal [place] Absolute 0.5 LAB 03228006(L 0.0-0.7 E3/mcL OINC) High Eos Absolute 0.8 LAB 91283862(L 0.0-0.2 E3/mcL OINC) Normal Basophil 0.1 Absolute Performed By: #### [id number] #### SUSANNA RemHemo [facility] [place] [address] ETHANOL Collected: 06/17/2017 Status: F Source: [address] REPOSITORY TYPE CODE TESTS RESULT OUT OF RANGE REFERENCE UNITS LAB 91821922(LO 0-15 mg/dL INC) Normal Ethanol Lvl <5 Result Comment: SAMPLES WITH CONCENTRATIONS <15 MG/DL SHOULD BE INTERPRETED NEGATIVE. FOR MEDICAL USE ONLY Performed By: #### [id number] #### SUSANNA [facility] [place] [address] CMP Collected: 06/17/2017 Status: F Source: [address] REPOSITORY TYPE CODE TESTS RESULT OUT OF RANGE REFERENCE UNITS LAB [id number](L 70-99 mg/dL OINC) High Glucose Lvl 388 LAB 50331574(L 7-18 mg/dL OINC) High BUN 39 LAB 9144225(LO 0.6-1.3 mg/dL INC) High Creatinine 2.6 LAB 05043862(L 8.4-10.2 mg/dL OINC) Calcium Normal Lvl 9.3 LAB 71527901(L 136-145 mEq/L OINC) Low Sodium Lvl 135 LAB 93779851(L 3.5-5.1 mEq/L OINC) Normal Potassium Lvl 3.9 LAB 23746847(L 98-107 mEq/L OINC) Chloride Normal 105 LAB 67954512(L 24.0-30.0 mEq/L OINC) Low CO2 20.4 LAB 49263761(L 42-121 Int._Unit/ OINC) L Alk Phos Normal 70 LAB 33933024(L 0.2-1.0 mg/dL OINC) Bili Normal Total 0.3 LAB 29367605(L 3.2-5.0 G/DL OINC) Albumin Normal Lvl 3.3 LAB 99872647(L 6.4-8.3 G/DL OINC) Total Normal Protein 6.8 LAB 50825802(L 10-40 Int._Unit/ OINC) L ALT Normal 13 LAB 10489516(L 10-42 Int._Unit/ OINC) L AST Normal 13 LAB 97659410(L 5.4-30.0 ratio OINC) Normal BUN/Creat Ratio 15.0 LAB 24748677(L 2.0-4.0 G/DL OINC) Globulin Normal 3.5 LAB 90669280(L 1.1-1.9 ratio OINC) Low A/G Ratio 0.9 Performed By: #### [id number] #### SUSANNA [employer] [place] [address] EGFR Collected: 06/17/2017 Status: F Source: MANDAEN 6:32 PM [facility] REPOSITORY Order Comment: Order added by Discern Expert. TYPE CODE TESTS RESULT OUT OF RANGE REFERENCE UNITS LAB 89586674(LO mL/min/1.73 INC) m2 Normal eGFR 18 LAB 43607959(LO mL/min/1.73 INC) m2 Normal eGFR AA 22 Performed By: #### [id number] #### SUSANNA [address] [place] [id number] ACETAMNPHN LVL Collected: 06/17/2017 Status: F Source: MANDAEN 6:32 PM [facility] REPOSITORY TYPE CODE TESTS RESULT OUT OF RANGE REFERENCE UNITS LAB 68655449(L 0-15 microgram/ OINC) mL Acetaminoph Normal Lvl 12 Result Comment: Tylenol - Therapeutic 10-30 ug/ml Toxic 4 hr. Post ingestion >150 ug/ml Toxic 8hr Post ingestion >75 ug/ml Toxic 12hr. Post ingestion >40 ug/ml Performed By: #### [id number] #### SUSANNA [facility] [facility] [place] [address] SALICYLATE Collected: 06/17/2017 Status: F Source: MANDAEN 6:32 PM [facility] REPOSITORY TYPE CODE TESTS RESULT OUT OF REFERENCE UNITS RANGE LAB 15739994(L 15-30 mg/dL OINC) Low Salicylate Lvl 5 Performed By: #### [id number] #### SUSANNA [facility] [facility] [place] [address] Observed: 06/09/2017 Status: F Source: MANDAEN C URINE 2:50 PM [facility] REPOSITORY Final Report: Normal skin cheyenne isolated Performed By: #### [id number] #### SUSANNA Microbiology Subsection [facility] [place] [address] CBC W/ AUTO DIFF Collected: 06/09/2017 Status: F Source: MANDAEN 1:30 PM [facility] REPOSITORY TYPE CODE TESTS RESULT OUT OF RANGE REFERENCE UNITS LAB 36119340(L 3.6-11.0 E3/mcL OINC) Normal WBC 9.7 LAB 52514014(L 3.90-5.40 E6/mcL OINC) Low RBC 3.83 LAB 07819938(L 12.0-16.0 G/DL OINC) Low Hgb 11.6 LAB 19078302(L 36.0-48.0 % OINC) Low Hct 35.2 LAB 07658172(L 11.5-14.5 % OINC) Normal RDW 14.4 LAB 16569603(L 27.0-31.0 pg OINC) Normal MCH 30.2 LAB 20748922(L 33.0-37.0 G/DL OINC) Low MCHC 32.9 LAB 42936499(L 78.0-100.0 fL OINC) Normal MCV 92.0 LAB [id number](L 7.4-11.0 fL OINC) Low MPV 7.2 LAB 98686436(L 130-400 E3/mcL OINC) Normal Platelet 318 Performed By: #### [id number] #### SUSANNAKarely WilhelmHemo [facility] [place] [address] AUTO DIFF Collected: 06/09/2017 Status: F Source: MANDAEN 1:30 PM [facility] REPOSITORY Order Comment: Order Added by Discern Expert. TYPE CODE TESTS RESULT OUT OF RANGE REFERENCE UNITS LAB [id number](L 37.0-75.0 % OINC) High Neutro Auto 84.5 LAB 48404812(L 20.0-55.0 % OINC) Low Lymph Auto 7.9 LAB 84651180(L 0.0-10.0 % OINC) Normal [place] Auto 4.8 LAB 64672623(L 0.0-11.0 % OINC) Normal Eos Auto 2.0 LAB 33360127(L 0.0-2.0 % OINC) Normal Basophil Auto 0.8 LAB 27895973(L 1.4-6.5 E3/mcL OINC) High Neutro 8.2 Absolute LAB 86747743(L 1.2-3.4 E3/mcL OINC) Low Lymph Absolute 0.8 LAB 70607490(L 0.0-0.7 E3/mcL OINC) Normal [place] Absolute 0.5 LAB 94962745(L 0.0-0.7 E3/mcL OINC) Normal Eos Absolute 0.2 LAB 05025766(L 0.0-0.2 E3/mcL OINC) Normal Basophil 0.1 Absolute Performed By: #### [id number] #### SUSANNA RemHemo [facility] [id number] HEP FUNC PANEL Collected: 06/09/2017 Status: F Source: MANDAEN 1:30 PM [facility] REPOSITORY TYPE CODE TESTS RESULT OUT OF RANGE REFERENCE UNITS LAB [id number](L 10-40 Int._Unit/L OINC) Normal ALT 16 LAB 17380293(L 10-42 Int._Unit/L OINC) Normal AST 19 LAB 71483519(L 3.2-5.0 G/DL OINC) Normal Albumin Lvl 3.4 LAB 97083004(L 2.0-4.0 G/DL OINC) Normal Globulin 3.1 LAB 70018087(L 1.1-1.9 ratio OINC) Normal A/G Ratio 1.1 LAB 20889622(L 42-121 Int._Unit/L OINC) Normal Alk Phos 62 LAB 75929516(L .00-.20 mg/dL OINC) Normal Bili Direct <.10 LAB 66715462(L OINC) Normal Bili Indirect >0.3 Result Comment: No established ranges available for the Indirect Biliruben. LAB 80260888(LOINC) 0.2-1.0 mg/dL Normal Bili Total 0.4 LAB 13364744(LOINC) 6.4-8.3 G/DL Normal Total Protein 6.5 Performed By: #### [id number] #### SUSANNA [address] [facility] [place] [address] BMP Collected: 06/09/2017 Status: F Source: MANDAEN 1:30 PM [facility] REPOSITORY TYPE CODE TESTS RESULT OUT OF RANGE REFERENCE UNITS LAB 75958584(L 70-99 mg/dL OINC) High Glucose Lvl 216 LAB 23457584(L 7-18 mg/dL OINC) High BUN 38 LAB 6177585(LO 0.6-1.3 mg/dL INC) High Creatinine 2.5 LAB 47835623(L 5.4-30.0 ratio OINC) Normal BUN/Creat Ratio 15.2 LAB 80078838(L 8.4-10.2 mg/dL OINC) Calcium Normal Lvl 9.0 LAB 76974931(L 136-145 mEq/L OINC) Low Sodium Lvl 135 LAB 82442054(L 3.5-5.1 mEq/L OINC) Normal Potassium Lvl 4.2 LAB 86633961(L 98-107 mEq/L OINC) High Chloride 108 LAB [id number](L 24.0-30.0 mEq/L OINC) Low CO2 18.6 Performed By: #### [id number] #### SUSANNA [address] [place] [address] EGFR Collected: 06/09/2017 Status: F Source: MANDAEN 1:30 PM [facility] REPOSITORY Order Comment: Order added by Discern Expert. TYPE CODE TESTS RESULT OUT OF RANGE REFERENCE UNITS LAB 70373568(LO mL/min/1.73 INC) m2 Normal eGFR 19 LAB 51689883(LO mL/min/1.73 INC) m2 Normal eGFR AA 23 Performed By: #### [id number] #### SUSANNA [facility] [address] [place] [address] UA COMPLETE Collected: 06/09/2017 Status: F Source: MANDAEN 1:17 PM [facility] REPOSITORY TYPE CODE TESTS RESULT OUT OF RANGE REFERENCE UNITS LAB 98666877( Yellow LOINC) Normal UA Color Yellow LAB 60235755( Clear LOINC) UA Clarity Abnormal SltCloudy LAB 00763299( Negative LOINC) Normal UA Glucose Negative LAB 50707068( Negative LOINC) Normal UA Bili Negative LAB 47381170( LOINC) Normal UA Ketones Trace LAB 13206971( 1.003-1.030 LOINC) Normal UA Spec Grav 1.027 LAB 39277129( 4.6-8.0 LOINC) Normal UA pH 5.0 LAB 68797978( Negative LOINC) UA Protein 1+ Abnormal LAB 13677628( LOINC) Normal UA Urobilinogen Negative LAB 25815570( Negative LOINC) Normal UA Nitrite Negative LAB 98717584( Negative LOINC) Normal UA Blood Negative LAB 28543631( Negative LOINC) UA Leuk Est 2+ Abnormal LAB 67984931( 0-3 /HPF LOINC) Normal UA RBC 0-3 LAB 77266246( 0-5 /HPF LOINC) UA WBC Abnormal 10-20 LAB 58724466( 0-5 /HPF LOINC) Normal UA Squam Epithelial 0-5 LAB 88442233( None /HPF LOINC) UA Bacteria Abnormal Trace LAB 12281852( Trace /LPF LOINC) UA Mucous Abnormal Trace Performed By: #### [id number] #### SUSANNA Urinalysis Automated Subsection [facility] [place] [address] CBC W/ AUTO DIFF Collected: 05/20/2017 Status: F Source: MANDAEN 4:25 PM [facility] REPOSITORY TYPE CODE TESTS RESULT OUT OF RANGE REFERENCE UNITS LAB 99102936(L 3.6-11.0 E3/mcL OINC) Normal WBC 7.8 LAB 93581782(L 3.90-5.40 E6/mcL OINC) Low RBC 3.76 LAB 59210146(L 12.0-16.0 G/DL OINC) Low Hgb 11.7 LAB 57376130(L 36.0-48.0 % OINC) Low Hct 34.7 LAB 10516850(L 11.5-14.5 % OINC) High RDW 14.8 LAB 67043520(L 27.0-31.0 pg OINC) High MCH 31.1 LAB 28534279(L 33.0-37.0 G/DL OINC) Normal MCHC 33.7 LAB 16344594(L 78.0-100.0 fL OINC) Normal MCV 92.2 LAB 88021054(L 7.4-11.0 fL OINC) Normal MPV 7.4 LAB 89373305(L 130-400 E3/mcL OINC) Normal Platelet 331 Performed By: #### [id number] #### SUSANNA RemHemdani [address] [place] [address] AUTO DIFF Collected: 05/20/2017 Status: F Source: MANDAEN 4:25 PM [facility] REPOSITORY Order Comment: Order Added by Discern Expert. TYPE CODE TESTS RESULT OUT OF RANGE REFERENCE UNITS LAB [id number](L 37.0-75.0 % OINC) Normal Neutro Auto 61.6 LAB 62666153(L 20.0-55.0 % OINC) Low Lymph Auto 17.6 LAB 71730579(L 0.0-10.0 % OINC) Normal [place] Auto 4.7 LAB 67862467(L 0.0-11.0 % OINC) High Eos Auto 15.1 LAB 26798690(L 0.0-2.0 % OINC) Normal Basophil Auto 1.0 LAB 02636496(L 1.4-6.5 E3/mcL OINC) Normal Neutro 4.8 Absolute LAB 17792784(L 1.2-3.4 E3/mcL OINC) Normal Lymph Absolute 1.4 LAB 93979888(L 0.0-0.7 E3/mcL OINC) Normal [place] Absolute 0.4 LAB 82824461(L 0.0-0.7 E3/mcL OINC) High Eos Absolute 1.2 LAB 29740416(L 0.0-0.2 E3/mcL OINC) Normal Basophil 0.1 Absolute Performed By: #### [id number] #### SUSANNA RemHemo [address] [place], [place] [address] UA COMPLETE Collected: 05/20/2017 Status: F Source: MANDAEN 4:25 PM [facility] REPOSITORY TYPE CODE TESTS RESULT OUT OF RANGE REFERENCE UNITS LAB 62015491( Yellow LOINC) Normal UA Color Yellow LAB 34735249( Clear LOINC) Normal UA Clarity Clear LAB 81210535( Negative LOINC) Normal UA Glucose Negative LAB 37735989( Negative LOINC) Normal UA Bili Negative LAB 66240835( Negative LOINC) Normal UA Ketones Negative LAB 60556185( 1.003-1.030 LOINC) Normal UA Spec Grav 1.017 LAB 77482151( 4.6-8.0 LOINC) Normal UA pH 5.0 LAB 49182761( Negative LOINC) Normal UA Protein Negative LAB 44856519( mg/dL LOINC) Normal UA Urobilinogen Negative LAB 75771852( Negative LOINC) Normal UA Nitrite Negative LAB 06087317( Negative LOINC) Normal UA Blood Negative LAB 12233487( Negative LOINC) UA Leuk Est Abnormal 2+ LAB 61979455( 0-3 /HPF LOINC) Normal UA RBC 0-3 LAB 08099816( 0-5 /HPF LOINC) UA WBC Abnormal 10-20 LAB 21187272( 0-5 /HPF LOINC) Normal UA Squam Epithelial 0-5 Performed By: #### [id number] #### SUSANNA Urinalysis Automated Subsection [facility] [place] [id number] RENAL PANEL Collected: 05/20/2017 Status: F Source: MANDA[place] 4:25 PM [facility] REPOSITORY TYPE CODE TESTS RESULT OUT OF RANGE REFERENCE UNITS LAB [id number](L 8.4-10.2 mg/dL OINC) Calcium Normal Lvl 9.2 LAB 13914856(L 24.0-30.0 mEq/L OINC) Low CO2 23.9 LAB 15104592(L 98-107 mEq/L OINC) Chloride Normal 98 LAB 50173638(L 70-99 mg/dL OINC) High Glucose Lvl 160 LAB 42065383(L 136-145 mEq/L OINC) Low Sodium Lvl 134 LAB 53308661(L 3.5-5.1 mEq/L OINC) Normal Potassium Lvl 4.0 LAB 54960401(L 3.2-5.0 G/DL OINC) Albumin Normal Lvl 3.7 LAB 4169911(LO 0.6-1.3 mg/dL INC) High Creatinine 2.1 LAB 34047134(L 2.5-4.6 mg/dL OINC) Normal Phosphorus 4.2 LAB 49257654(L 7-18 mg/dL OINC) High BUN 25 LAB 11103273(L 5.4-30.0 ratio OINC) Normal BUN/Creat Ratio 11.9 Performed By: #### [id number] #### SUSANNA [facility] [address] [place] [address] U PROTEIN Collected: 05/20/2017 Status: F Source: MANDAEN 4:[address] [place] [address] REPOSITORY TYPE CODE TESTS RESULT OUT OF REFERENCE UNITS RANGE LAB [id number](LO 1-14 mg/dL INC) Ur High Total Protein 33 Performed By: #### [id number] #### SUSANNA [facility] [address] [place] [address] MICROALB/CREAT RATIO Collected: 05/20/2017 Status: F Source: MANDAEN 4:[address] [place] [address] REPOSITORY TYPE CODE TESTS RESULT OUT OF REFERENCE UNITS RANGE LAB 79361128(L 0.0-1.9 mg/dL OINC) Ur High Microalbumin 9.6 LAB 22298454(L 20.0-300.0 mg/dL OINC) Ur Creat Normal 107.0 LAB 17563986(L 0-30 ug/mg OINC) Microalb/Creat High 90 Performed By: #### [id number] #### SUSANNA [facility] [address] [place] [address] EGFR Collected: 05/20/2017 Status: F Source: [address] REPOSITORY Order Comment: Order added by Discern Expert. TYPE CODE TESTS RESULT OUT OF RANGE REFERENCE UNITS LAB [id number](LO mL/min/1.73 INC) m2 Normal eGFR 24 LAB 22973737(LO mL/min/1.73 INC) m2 Normal eGFR AA 29 Performed By: #### [id number] #### SUSANNA [facility] [address] [place] [id number] URIC ACID Collected: 05/20/2017 Status: F Source: MANDAEN 4:25 PM [facility] REPOSITORY TYPE CODE TESTS RESULT OUT OF RANGE REFERENCE UNITS LAB [id number](LO 2.6-7.2 mg/dL INC) Normal Uric Acid 5.4 Performed By: #### [id number] #### SUSANNA [facility] [address] [place] [id number] XR FLUOROSCOPY UP TO 1 Observed: 05/04/2017 Status: F Source: MANDAEN HOUR 8:40 AM [facility] REPOSITORY Exam Date/Time: 05/04/2017 08:51 EDT Reason for Exam: Confirm Position;Other (please specify) Report EXAMINATION: XR Fluoroscopy Up to 1 Hour. 1 image. CLINICAL STATEMENT: Back pain. COMPARISON: None. FLUOROSCOPY TIME: Fluoro time measures 0.8 seconds. TECHNIQUE: Right sacroiliac joint injection under fluoroscopy. Procedure performed by the pain medicine physician. FINDINGS: Contrast is seen, in the sacroiliac joint, as well as a localizing needle at the inferior portion of the right sacroiliac joint. IMPRESSION: Right SI joint injection. FINAL REPORT Dictated: 05/10/2017 4:56 pm Jono Begum MD Signed (Electronic Signature): 05/10/2017 4:56 pm Signed by: Jono Begum MD Technologist: HLL GLUCOSE POC Collected: 05/04/2017 Status: F Source: MANDAEN 7:20 AM [facility] REPOSITORY TYPE CODE TESTS RESULT OUT OF REFERENCE UNITS RANGE LAB [id number](LO 70-99 mg/dL INC) High Glucose POC 105 Performed By: #### [id number] #### SUSANNA POC Subsection [address] [place] [address] ENDOCRINOLOGY VISIT Observed: 05/02/2017 Status: F Source: [place] REPORT 12:55 PM [facility] [address] [place] [address] [address] [place] [address] OFFICE VISIT Date of Service: 05/02/17 MR#: [id number] Acct: [id number] Name: JOSH JAVED Rep #: [id number] : 1950 Provider: Louisa Solorzano NP Age/Sex: 66/F Location: [facility] Status: Signed HPI History of present illness Josh Javed is a 66 year old female who presents as a consult for diabetes type 2. Diagnosed in 1997. States she had recent ER visit for diabetes. Reports she has never had good control of her diabetes. Currently prescribed lantus 55 units at night but she does not always take because of nocturnal low BG readings. When she wakes in am if her BG is high she will take a dose of 15-25 in the daytime. However, because she takes another dose at bedtime, she has low BG again. PMH includes seasonal allergies, anxiety/depression, back problems, cataracts, GI problems, hypertension, hyperlipidemia, IBS, kidney disease, and osteoporosis. Pt denies difficulty with injections or self monitoring of BG. Denies any signs of infection or irritation at site of injections. At time of visit: -Pt denies symptoms of hypertensive emergency (CP,SOB,ONEILL, or blurred vision) and hypotension(dizziness or lightheadedness) -Pt denies symptoms of hypoglycemia ( sweaty, confusion, anxiety, tremor, hunger, palpitations) and hyperglycemia ( polydipsia, polyuria) -Pt denies potential medication adverse effect. Hypoglycemia Aware of hypoglycemia: yes Able to self treat low BG: Yes Frequent low Bloo sugar: No Has supply of glucagon: Yes SMBG 1-2 times daily Range of BG 60-220+ Meals 2-3 meals daily Doesnt like to eat breakfast No carb counting. Type: type 2 Glucose control symptoms: Reports nocturnal hypoglycemia and high post-meal glucose Weight and fatigue symptoms: Reports weight loss; denies snoring Cardiopulmonary symptoms: Reports lightheadedness; denies chest pain at rest, dyspnea on exertion or myalgias GI symptoms: Reports constipation, diarrhea and nausea/dyspepsia; denies vomiting Other symptoms: Reports blurry vision and change in vision Pertinent visit history: Reports recent visit to ER Self monitoring: Yes Glucometer type: one touch Dietary compliance: Diabetes: other Diabetes education in past year: Yes Glucose testing: demonstrates correct use of meter Exam Const General: no acute distress, well groomed Nutritional Appearance: overweight Orientation: oriented x3 HENMT Head: normal to inspection, atraumatic Ears: hearing grossly normal bilaterally Nose: external nose normal Face and sinus: normal facial exam Mouth: oral mucosae normal, moist mucous membranes Eyes General: appearance normal, both eyes and all related structures Eyelids: eyelids normal Conjunctivae: conjunctivae normal Sclera: sclerae normal Pupils: PERRL Resp Effort AND Inspection: normal respiratory effort, able to speak in complete sentences, symmetric chest movement Auscultation: Bilateral: Clear to Auscultation Cardio Rate: regular rate Rhythm: regular rhythm Heart Sounds: S1 normal, S2 normal GI Inspection: normal to inspection Auscultation: normal bowel sounds Palpation: soft Skin General: no rashes or lesions noted Wounds: no wounds Hair: normal Diabetic Foot Pulses: L dorsalis pedis pulse: normal, R dorsalis pedis pulse: normal Monofilament test: Left foot: normal, Right foot: normal Neuro General: gait normal, moves all extremities Cognition: normal cognition Speech: speech normal Extrem General: normal to inspection, normal capillary refill Psych Appearance: well kempt Mood: congruent mood Affect: normal affect Speech and Movement: speech and movement normal Attitude: cooperative Thought Process: normal Thought Content: normal Judgment: judgment good Intake Vital Signs05/02/17 Height 5 ft 4 in 05/02/17 Weight: 227 lb 6 oz 05/02/17 Body Mass Index (BMI) 39.0 05/02/17 Blood Pressure 157/81 05/02/17 Blood Pressure Location Lt popliteal 05/02/17 Blood Pressure Position Sitting Intake 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 Accompanied by: Family / Other Is patient in pain?: No Allergies Penicillins Allergy (Severe, Verified 05/02/17 10:25) Unknown Sulfa (Sulfonamide Antibiotics) Allergy (Verified 04/05/17 20:17) Hives azithromycin Adverse Reaction (Verified 04/05/17 20:18) Other morphine Adverse Reaction (Verified 04/05/17 20:17) Other c-clor Allergy (Severe, Uncoded 05/02/17 10:25) Unknown Medications Duloxetine HCl [Duloxetine HCl] 1 tab PO DAILY 04/05/17 [History Confirmed 05/02/17] Ezetimibe [Zetia] 10 mg PO DAILY 04/05/17 [History Confirmed 05/02/17] Lurasidone HCl [Latuda] 20 mg PO DAILY 04/05/17 [History Confirmed 05/02/17] [place]-3 Acid Ethyl Esters 1 gm PO DAILY 04/05/17 [History Confirmed 05/02/17] Sitagliptin Phosphate [Januvia] 50 mg PO DAILY 04/05/17 [History Confirmed 05/02/17] Trazodone HCl 200 mg PO QHS 04/05/17 [History Confirmed 05/02/17] acetaminophen ER 650 mg tablet,extended release 650 mg PO TID tab 05/02/17 [History Confirmed 05/02/17] amlodipine 5 mg tablet 5 mg PO QDAY tab 05/02/17 [History Confirmed 05/02/17] gjfdgro-khukciuyiawas-uqdwbslm 250 mg-250 mg-65 mg tablet 1 tab PO BID tab 05/02/17 [History Confirmed 05/02/17] insulin glargine (U-100) 100 unit/mL subcutaneous solution 55 unit SC QHS ml 05/02/17 [History Confirmed 05/02/17] sodium bicarbonate 650 mg tablet 650 mg PO BID tab 05/02/17 [History Confirmed 05/02/17] Is last menstrual period known: No Post menopausal: Yes Patient : No Nurse's Note: blood sugars : low : 60 high : 220 PFSH Medical History Anxiety and depression (Acute) Arthritis (Acute) Back problem (Acute) Bone fracture (Acute) Cataracts, bilateral (Acute) Diabetes type 2, controlled (Acute) Environmental allergies (Acute) GI problem (Acute) Headache (Acute) High cholesterol (Acute) High triglycerides (Acute) IBS (irritable bowel syndrome) (Acute) Kidney disease (Acute) Osteoporosis (Acute) HTN (hypertension) (Chronic) Family History Unknown Arthritis Breast cancer Diabetes Heart disease Hypertension High cholesterol Kidney disease Social History Smoking Status: Current some day smoker alcohol intake: never substance use type: does not use ROS Const Constitutional: Positive for fatigue, night sweats, weight change and change in appetite; no anorexia, body ache, chills, fever(s), frequent falls, decreased energy, malaise, weakness, sleep problems, abnormal sleep pattern, other, headache(s), snoring or excessive sweating Eyes Eyes: Positive for blurry vision and change in vision; no double vision, discharge, dry eyes, bulging eyes, floaters, visual disturbances, eye pain, light sensitivity, spots in vision, tunnel vision or other ENT ENT: No abnormal hearing, ear pain, ear discharge, ear pressure, hearing loss, tinnitus, dizziness/vertigo, balance problems, nosebleed/epistaxis, nasal congestion, nasal obstruction, nose pain, sinus pressure, sinus pain, nasal discharge, post nasal drip, headache(s), facial pain, dental pain, dry mouth, bad breath, hoarseness, lip swelling, mouth lesions, mouth pain, sore throat, tongue swelling, throat swelling, other, difficulty swallowing or neck pain Resp Respiratory: No cough, change in phlegm color, chest congestion, excessive phlegm production, hemoptysis, pain on inspiration, shortness of breath, pain with cough, snoring, stridor, wheezing or other Cardio Cardiology: Positive for lightheadedness; no chest pain at rest, chest pain with exertion, leg pain with exertion, excessive sweating, shortness of breath, dyspnea on exertion, generalized swelling, irregular heart rhythm, orthopnea, radiating jaw, neck or arm pain, fast heart rate, slow heart rate, palpitations or other Gastro GI: Positive for constipation, diarrhea and nausea/dyspepsia; no abdominal pain, belching, bloating, change in bowel habits, change in stool character, coffee ground emesis, cramping, heartburn, difficulty swallowing, feeling full early, excessive flatus, incontinent of stools, Vomiting blood/hematemesis, blood in stool, loose stools, Black,tarry stools, pain with swallowing, vomiting or other Genitourinary-Female: No difficulty urinating, burning urination, painful urination, urinary incontinence, urinary frequency, urinary urgency, urinary hesitancy, urinary retention, blood in urine, Frequent nighttime urination/ nocturia, post void dribbling, suprapubic fullness, side pain, sexual problems, genital lesions, genital itching, hot flashes, abnormal periods, abnormal vaginal bleeding, absent period, painful periods, light periods, heavy periods, difficulty getting , painful intercourse, pelvic pain, vaginal dryness, vaginal odor, Vaginal Itching or other Musc Musculoskeletal: No abnormal walking, joint pain, back pain, deformity, joint swelling, limited range of motion, loss of height, muscle cramps, muscle weakness, decreased muscle mass, body aches, neck pain, numbness, radiating pain into limb, stiffness, tingling or other Neuro Neurology: No frequent falls, weakness, visual disturbances, abnormal hearing, headache(s), abnormal walking, numbness or tingling Psych Psychiatric: No abnormal sleep pattern, Positive for change in appetite Endo Endocrine: Positive for fatigue; no other or excessive sweating Aller/Imm Allergy/Immunologic: No lip swelling, tongue swelling, throat swelling or wheezing Assessment AND Plan Problems 1. Uncontrolled type 2 diabetes mellitus with chronic kidney disease, with long-term current use of insulin, unspecified CKD stage E11.22; E11.65; Z79.4 Plan Review of BG readings note patient has frequent low at night. She has started not giving her insulin at night if she is in decent range. Instead she will supplement the next day. Has frequent rebound high BG readings. Instructed patient on pathophysiology of diabetes, use of insuln, how to carb count and need to check BG in pairs and before bed. Instructed on self care of diabetes. BP slightly elevated Recheck 2 weeks No statin No tana inhibitor. Rviewed recent labs. Medications Discontinued: potassium chloride ER Discontinued Reason: Pt no longer ta20 mEq PO DAILY iris Plan Detail Additional Comments 1. Please schedule follow up in 2 weeks 2. Lab work one week before appointment. 3. Discussed importance of regular exercise and recommend starting or continuing a regular exercise program for good health. 4. The patient was encouraged to lose weight for good health 5. The importance of monitoring blood sugar regularly was reviewed. 6. The importance of monitoring the HBA1c level regularly was reviewed. 7. The importance of prper foot care and regularly checking feet to prevent sores and loss of limbs was reviewed. 8. The importance of keeping BP at or below 130/80 to prevent stroke, heart attacks, kidney failure, blindness was reviewed. Spent approximately 60 minutes with patient with over 50% of time spent in discussion and counseling regarding medication adjustment, symptoms and treatment of hypoglycemia, diet adherence, and checking BG before driving. Lower lantus to 48 units daily Check BG at bedtime and first thing in morning Call readings in one week, sooner if you continue to have low BG readings. Count meal carbs, read labels. Stop drinking regular pop. Coding Level of Care Code Off vis,new,level 4 Diagnoses Uncontrolled type 2 diabetes mellitus with chronic kidney disease, with long-term current use of insulin, unspecified CKD stage E11.22; E11.65; Z79.4 Diabetes mellitus intermediate card tender insulin use: with alf use Chronic kidney disease stage: unspecified stage Diabetes mellitus complication detail: with chronic kidney disease Time Spent (min) 60 Depression Screen PHQ-2/9 PHQ-2 Over the last 2 weeks, how often have you been bothered by any of the following problems? 1. Little interest or pleasure in doing things: nearly every day 2. Feeling down, depressed, or hopeless: nearly every day Total score: 6 If score is 2 or greater, continue 3. Trouble falling or staying asleep, or sleeping too much: more than half the days 4. Feeling tired or having little energy: nearly every day 5. Poor appetite or overeating: nearly every day 6. Feeling bad about yourself - or that you are a failure or have let yourself and your family down: nearly every day 7. Trouble concentrating on things, such as reading the newspaper or watching television: more than half the days 8. Moving or speaking so slowly that other people could have noticed? - Or the opposite - being so fidgety or restless that you have been moving around a lot more than usual: not at all 9. Thoughts that you would be better off or of hurting yourself in some way: nearly every day Total score: 22 If you checked off any problems, how difficult have these problems made it for you to do your work, take care of things at home, or get along with other people?: extremely difficult Source: Developed by Drs. Navneet Davis, Swati Ritchie, Ajith Campbell and colleagues, with an educational ivon from [employer]. Scoring: Total Score Depression Severity Action 1-4 Minimal depression No action needed 5-9 Mild depression Repeat PHQ-9 at follow up 10-14 Moderate depression Make tx plan,consider counseling, fup, prescription 05/02/17 7955 <Electronically signed by Louisa MOORE> Date Louisa MOORE Cosigner Signature: Date (if applicable) CC: EMERGENCY DEPARTMENT Observed: 04/06/2017 Status: F Source: [place]ICHLAND SUMMARY 12:15 AM [facility] Medical Records Department [address] [place] [address] Emergency Department Summary 04/05/172231 MR#: [id number] Acct: [id number] Name: JOSH JAVED Rep #: [id number] : 1950 66 From: Mir Lambert PCP: RADHA JONES Status: REG ER - ER Visit Summary Date of Service: 04/05/17 Chief Complaint: Nausea, diarrhea History of Present Illness: The patient is a 66 F here with daughter with nausea and diarrhea for more than 10 days. Was discharged from [facility] 10 days after 3 day stay. States had similar symptoms. Chronic kidney disease. States over past 3 days has not eaten. Decreased appetite with her nausea. No vomiting. No fevers. No chest pains or cough. No urinary symptoms. In addition states her blood sugars have run high in the 500s today. She is on Lantus 55 units at night. She is also on Januvia once a day. Diabetes managed by her PCP. No recent adjustments. Saw her PCP today, sent to the emergency department. She states she was at [facility] today, labs were run, states nothing was done therefore they came here. They state did not p.o. challenge her. In addition states she gave herself 65 units of Lantus at 2 PM due to her high sugars. She is not on any short acting insulin. States she is having 3 episodes of diarrhea per day since being discharged. No recent antibiotics. Physical Examination: General: Alert and oriented 3, no acute distress. Nontoxic HEENT: Normocephalic, atraumatic. Dry mucosa membranes Neck: supple, nontender. Cardiovascular: Regular rate and rhythm, no murmurs Respiratory: Normal breath sounds, symmetric, no distress Abdomen: Soft, nontender, nondistended Extremities: Nontender, no edema, pulses intact 4 Neuro: no focal neurological deficits. Test Results: CBC: Normal. BMP creatinine 2.24. Potassium 3.1. Anion gap 8, blood glucose 59. Ketone negative. Emergency Department Course and Treatment: Patient nontoxic. Dry mucosa membranes. She given IV fluids and Zofran. Symptoms improved. Potassium 3.1, orally replaced. Glucose did return a 59, she is asymptomatic. She is given glucose orally along with yogurt. Tolerating oral intake. Creatinine 2.24. Obtain records from [facility] with stable creatinine. Continue oral hydration at home. 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 Prescription for Zofran along with potassium given. She will continue oral hydration at home. She will monitor sugars and follow-up as an outpatient. She will return if any worsening symptoms. Treatment Plan: Symptomatic Disposition: Discharge Impression: 1. Nausea resolved 2. Diarrhea- stable 3. Chronic kidney disease 4. History diabetes This note was generated with [employer] software. It may contain incorrect words, spelling, and punctuation that were not noted in review of the chart prior to signing ED Disposition - Plan for ED Patient: Disposition: Home or Assisted Living Chief Complaint: General Illness Diagnosis: Chronic kidney disease, History of diabetes mellitus, Nausea, Hypokalemia Instructions: ED Diet Vomiting Diarrhea, ED Renal Failure Chronic Prescriptions: Ondansetron [Zofran Odt] 8 mg PO Q8H PRN PRN #10 PRN Reason: Nausea Potassium Chloride [K-Dur] 20 meq PO DAILY #7 tablet Referrals: Radha Jones [Primary Care Provider] - Louisa Solorzano FOREIGN EXCHANGE CLERK-C [Nurse Practitioner] - 3-5 Days What to do if you have Problems For any increased pain, shortness of breath, bleeding, nausea or vomiting, chest pain, or any unexpected problems, contact your Primary Care Provider. Call [facility] ([phone]) or report to the closest Emergency Room. Call 911 if necessary. 04/06/17 0015 <Electronically signed by Mir Lambert> Date Mir Lambert Cosigner Signature (If Indicated): Date CC: RADHA LONGSDORF BEDSIDE GLUCOSE Collected: 04/05/2017 Status: F Source: MARINO 11:11 PM [facility] TYPE CODE TESTS RESULT OUT OF RANGE REFERENCE UNITS LAB L501.080 70-110 mg/dL Normal BEDSIDE GLU 104 Result Comment: MANAGEMENT OF PATIENT CARE PER NURSING PROTOCOL Performed By: #### L501.080 #### [facility] Point of Care [address] [place], [place] [address] BEDSIDE GLUCOSE Collected: 04/05/2017 Status: F Source: MARINO 10:39 PM [facility] TYPE CODE TESTS RESULT OUT OF REFERENCE UNITS RANGE LAB L501.080 70-110 mg/dL Low BEDSIDE GLU 59 Result Comment: Snack Given MANAGEMENT OF PATIENT CARE PER NURSING PROTOCOL Performed By: #### L501.080 #### [facility] Point of Care [address] [place], [place] [id number] CBC-COMPLETE BLOOD CNT Collected: 04/05/2017 Status: F Source: MARINO NO DIFF 10:30 PM [facility] TYPE CODE TESTS RESULT OUT OF RANGE REFERENCE UNITS LAB L100.1000 4.4-11.0 K/mm3 Normal WBC 8.1 LAB L100.1200 4.2-5.4 M/mm3 Low RBC 3.97 LAB L100.1300 12.0-15.0 g/dl Low HGB 11.9 LAB L100.1400 37-47 % Normal HCT 37.1 LAB L100.1500 81-99 fL Normal MCV 93.5 LAB L100.1600 27.0-32.0 pg Normal MCH 30.0 LAB L100.1700 32-36 g/gl Normal MCHC 32.1 LAB L100.1810 11.6-14.6 % Normal RDW CV 13.2 LAB L100.1820 35.1-43.9 fl High RDW SD 45.0 LAB L100.1900 150-450 K/mm3 Normal PLT 353 LAB L100.2000 6.2-12.0 fl Normal MPV 9.4 Performed By: #### L100.0500 #### [facility] [address] [place], [place], [id number] BASIC METABOLIC Collected: 04/05/2017 Status: F Source: MARINO PROFILE (BMP) 10:30 PM [facility] TYPE CODE TESTS RESULT OUT OF RANGE REFERENCE UNITS LAB L501.0100 74-106 mg/dL Low GLU 59 Result Comment: Please note revised GLUCOSE reference range effective 2017. LAB L501.1000 7-18 mg/dL Normal BUN 17 LAB L501.1100 0.55-1.02 mg/dL High CREAT,SERUM 2.24 Result Comment: The validity of the calculated GFR AND GFRAA in patients over 70 years has not been determined. Clinical correlation is essential. LAB L501.1110 >60 mL/min Low EST GFR 23 Result Comment: Non- GFR Calc LAB L501.1115 >60 mL/min Low EST GFR - AA 28 Result Comment: GFR Calc LAB L501.1255 ml/min Normal Estimated CRCL 21.62 LAB L501.1300 10-20 RATIO Low BUN/CRE 7.6 LAB L501.2200 8.5-10 mg/dL Normal .1 CA 9.3 LAB L501.5300 136-14 mmol/L Normal 5 NA 140 LAB L501.5600 3.5-5. mmol/L Low 1 K 3.1 Result Comment: Slight Hemolysis, Result may be falsely increased. LAB L501.5900 98-107 mmol/L Normal CL 104 LAB L501.6100 21.0-32.0 mmol/L Normal CO2 28.0 LAB L501.6200 5-15 Normal 8 GAP Performed By: #### L500.2500 #### [facility] [address] [place], [address] ACETONE SERUM Collected: 04/05/2017 Status: F Source: MARINO 10:30 PM [facility] TYPE CODE TESTS RESULT OUT OF RANGE REFERENCE UNITS LAB L501.6900 NEG Normal ACETONE SERUM NEGATIVE Performed By: #### L501.6900 #### [facility] [address] [place], [address] GLUCOSE POC Collected: 04/05/2017 Status: F Source: MANDAEN 7:00 PM [facility] REPOSITORY TYPE CODE TESTS RESULT OUT OF REFERENCE UNITS RANGE LAB 48272726(LO 70-99 mg/dL INC) High Glucose POC 160 Performed By: #### [id number] #### SUSANNA POC [address] [place] [id number] CBC W/ AUTO DIFF Collected: 04/05/2017 Status: F Source: MANDAEN 5:29 [facility] REPOSITORY TYPE CODE TESTS RESULT OUT OF RANGE REFERENCE UNITS LAB 73468737(L 3.6-11.0 E3/mcL OINC) Normal WBC 7.2 LAB 53345354(L 3.90-5.40 E6/mcL OINC) Low RBC 3.86 LAB 04709587(L 12.0-16.0 G/DL OINC) Low Hgb 11.9 LAB 22336232(L 36.0-48.0 % OINC) Low Hct 35.6 LAB 33014792(L 11.5-14.5 % OINC) Normal RDW 14.0 LAB 45846335(L 27.0-31.0 pg OINC) Normal MCH 30.7 LAB 52050896(L 33.0-37.0 G/DL OINC) Normal MCHC 33.3 LAB 94496980(L 78.0-100.0 fL OINC) Normal MCV 92.3 LAB 89370085(L 7.4-11.0 fL OINC) Normal MPV 8.0 LAB 97508052(L 130-400 E3/mcL OINC) Normal Platelet 313 Performed By: #### [id number] #### SUSANNA [facility] [place] [id number] AUTO DIFF Collected: 04/05/2017 Status: F Source: MANDAEN 5:29 [facility] REPOSITORY Order Comment: Order Added by Discern Expert. TYPE CODE TESTS RESULT OUT OF RANGE REFERENCE UNITS LAB 62197974(L 37.0-75.0 % OINC) Normal Neutro Auto 75.0 LAB 58040058(L 20.0-55.0 % OINC) Low Lymph Auto 13.7 LAB 59218445(L 0.0-10.0 % OINC) Normal [place] Auto 4.7 LAB 89220463(L 0.0-11.0 % OINC) Normal Eos Auto 5.4 LAB 05625313(L 0.0-2.0 % OINC) Normal Basophil Auto 1.2 LAB 68095237(L 1.4-6.5 E3/mcL OINC) Normal Neutro 5.4 Absolute LAB 02386858(L 1.2-3.4 E3/mcL OINC) Low Lymph Absolute 1.0 LAB 90863967(L 0.0-0.7 E3/mcL OINC) Normal [place] Absolute 0.3 LAB 73082242(L 0.0-0.7 E3/mcL OINC) Normal Eos Absolute 0.4 LAB 21634783(L 0.0-0.2 E3/mcL OINC) Normal Basophil 0.1 Absolute Performed By: #### [id number] #### SUSANNA Wilhelm[facility]emo [address] [place] [address] BMP Collected: 04/05/2017 Status: F Source: MANDAEN 5:29 PM [facility] REPOSITORY Order Comment: Lab collect TYPE CODE TESTS RESULT OUT OF RANGE REFERENCE UNITS LAB 26143928(L 70-99 mg/dL OINC) High Glucose Lvl 246 LAB 59753550(L 8.4-10.2 mg/dL OINC) Calcium Normal Lvl 9.4 LAB 60984081(L 136-145 mEq/L OINC) Low Sodium Lvl 133 LAB 99557551(L 3.5-5.1 mEq/L OINC) Normal Potassium Lvl 3.5 LAB 79201318(L 98-107 mEq/L OINC) Chloride Normal 100 LAB 35451777(L 24.0-30.0 mEq/L OINC) Low CO2 22.7 LAB 85046312(L 7-18 mg/dL OINC) BUN Normal 17 LAB 6044871(LO 0.6-1.3 mg/dL INC) High Creatinine 2.2 LAB 56496507(L 5.4-30.0 ratio OINC) Normal BUN/Creat Ratio 7.7 Performed By: #### [id number] #### SUASNNA [facility] [place] [address] TROPONIN-I Collected: 04/05/2017 Status: F Source: MANDAEN 5:29 [facility] REPOSITORY TYPE CODE TESTS RESULT OUT OF RANGE REFERENCE UNITS LAB 64517245(LO .00-.03 ng/mL INC) Normal .01 Troponin-I Performed By: #### [id number] #### SUSANNA [facility] [address] [id number] CK Collected: 04/05/2017 Status: F Source: MANDAEN 5:29 PM [facility] REPOSITORY TYPE CODE TESTS RESULT OUT OF RANGE REFERENCE UNITS LAB 32216436(LO 26-140 Int._Unit/L INC) Low Total CK 12 Performed By: #### [id number] #### SUSANNA [facility] [facility] [id number] EGFR Collected: 04/05/2017 Status: F Source: MANDAEN 5:29 PM [facility] REPOSITORY Order Comment: Order added by Discern Expert. TYPE CODE TESTS RESULT OUT OF RANGE REFERENCE UNITS LAB 03716026(LO mL/min/1.73 INC) m2 Normal eGFR 22 LAB 22565249(LO mL/min/1.73 INC) m2 Normal eGFR AA 27 Performed By: #### [id number] #### SUSANNA [facility] [place] [address] HEP FUNC PANEL Collected: 04/05/2017 Status: F Source: MANDAEN 5:29 [facility] REPOSITORY TYPE CODE TESTS RESULT OUT OF RANGE REFERENCE UNITS LAB 92836125(L 10-40 Int._Unit/L OINC) Low ALT 8 LAB 79082796(L 10-42 Int._Unit/L OINC) Normal AST 21 LAB 09078327(L 3.2-5.0 G/DL OINC) Low Albumin Lvl 2.9 LAB 62707944(L 2.0-4.0 G/DL OINC) Normal Globulin 3.3 LAB 05477978(L 1.1-1.9 ratio OINC) Low A/G Ratio 0.9 LAB 75060254(L 42-121 Int._Unit/L OINC) Normal Alk Phos 66 LAB 96605610(L .00-.20 mg/dL OINC) Normal Bili Direct <.10 LAB 22287725(L OINC) Normal Bili Indirect >0.3 Result Comment: No established ranges available for the Indirect Biliruben. LAB 25063324(LOINC) 0.2-1.0 mg/dL Normal Bili Total 0.4 LAB 83545067(LOINC) 6.4-8.3 G/DL Low Total Protein 6.2 Performed By: #### [id number] #### [place] [address] LIPASE LEVEL Collected: 04/05/2017 Status: F Source: MANDAEN 5:29 PM [facility] REPOSITORY Order Comment: Lab collect TYPE CODE TESTS RESULT OUT OF RANGE REFERENCE UNITS LAB 69608264(LO 8-57 U/L INC) Normal Lipase Lvl 16 Performed By: #### [id number] #### [place] [address] BOHB Collected: 04/05/2017 Status: F Source: MANDAEN 5:29 PM [facility] REPOSITORY TYPE CODE TESTS RESULT OUT OF RANGE REFERENCE UNITS LAB 83215852(LO 0.02-0.27 mmol/L INC) Normal Beta HB 0.07 Qnt Performed By: #### [id number] #### [place] [address] GLUCOSE POC Collected: 04/05/2017 Status: F Source: MANDAEN 5:05 PM [facility] REPOSITORY TYPE CODE TESTS RESULT OUT OF REFERENCE UNITS RANGE LAB 86354154(LO 70-99 mg/dL INC) High Glucose POC 260 Performed By: #### [id number] #### SUSANNA POC Subsection [address] [place] [address] GLUCOSE POC Collected: 03/25/2017 Status: F Source: MANDAEN 11:12 AM [facility] REPOSITORY TYPE CODE TESTS RESULT OUT OF REFERENCE UNITS RANGE LAB 27734992(LO 70-99 mg/dL INC) High Glucose POC 209 Performed By: #### [id number] #### SUSANNA POC [address]section [address] [place] [address] GLUCOSE POC Collected: 03/25/2017 Status: F Source: MANDAEN 7:06 AM [facility] REPOSITORY TYPE CODE TESTS RESULT OUT OF RANGE REFERENCE UNITS LAB 54879016(LO 70-99 mg/dL INC) Normal Glucose POC 91 Performed By: #### [id number] #### SUSANNA POC [address]section [address] [place] [address] CBC W/ AUTO DIFF Collected: 03/25/2017 Status: F Source: MANDAEN 5:59 AM [facility] REPOSITORY TYPE CODE TESTS RESULT OUT OF RANGE REFERENCE UNITS LAB 79734788(L 3.6-11.0 E3/mcL OINC) Normal WBC 5.7 LAB 60361106(L 3.90-5.40 E6/mcL OINC) Low RBC 3.22 LAB 77899884(L 12.0-16.0 G/DL OINC) Low Hgb 9.8 LAB 25818896(L 36.0-48.0 % OINC) Low Hct 30.1 LAB 88392741(L 11.5-14.5 % OINC) Normal RDW 14.0 LAB 67094518(L 27.0-31.0 pg OINC) Normal MCH 30.4 LAB 22949534(L 33.0-37.0 G/DL OINC) Low MCHC 32.5 LAB 80352972(L 78.0-100.0 fL OINC) Normal MCV 93.3 LAB 91741146(L 7.4-11.0 fL OINC) Normal MPV 8.2 LAB 64804433(L 130-400 E3/mcL OINC) Normal Platelet 243 Performed By: #### [id number] #### SUSANNA WilhelmHemdani [address] [place] [address] MANUAL DIFF Collected: 03/25/2017 Status: F Source: MANDAEN 5:59 AM [facility] REPOSITORY Order Comment: Order Added by Discern Expert. TYPE CODE TESTS RESULT OUT OF REFERENCE UNITS RANGE LAB 86591584( 37-75 % LOINC) Segs Man 56 Normal LAB 26556199( 14-48 % LOINC) Lymph Man 27 Normal LAB 28685117( 1-11 % LOINC) Monocyte 5 Normal Man LAB 61848755( 0-5 % LOINC) Eos Man 12 High LAB 77109444( 0-1 % LOINC) Basophil 0 Normal Man LAB 93607792( LOINC) RBC Morph SEE Normal MORPHOLOGY LAB 74546171( LOINC) 1+ Normal Anisocytosis Performed By: #### [id number] #### SUSANNA WilhelmHemo [address] [place] [address] ZZPLT MORPH Collected: 03/25/2017 Status: F Source: MANDAEN 5:59 AM [facility] REPOSITORY TYPE CODE TESTS RESULT OUT OF RANGE REFERENCE UNITS LAB 61949672(L OINC) Normal Platelet NORMAL Estimate LAB 15894639(L OINC) Normal Platelet Morph NORMAL Performed By: #### [id number] #### SUSANNA MelonieHemo [address] [place], [place] [address] .MANUAL ABS Collected: 03/25/2017 Status: F Source: MANDAEN 5:59 AM [facility] REPOSITORY Order Comment: Order Added by Discern Expert. TYPE CODE TESTS RESULT OUT OF RANGE REFERENCE UNITS LAB 91287897(L 1.4-6.5 10x3/ OINC) Normal Segs Abs Man 3.2 LAB 87339900(L 1.2-3.4 10x3/ OINC) Normal Lymph Abs Man 1.5 LAB 02241088(L 0.0-0.7 10x3/ OINC) Normal [place] Abs Man 0.3 LAB 02018455(L 0.0-0.5 10x3/ OINC) High Eos Abs Man 0.7 LAB 59330628(L 0.0-0.2 10x3/ OINC) Normal Basophil Abs 0.0 Man Performed By: #### [id number] #### SUSANNA Rem[facility] [address] [place] [address] BMP Collected: 03/25/2017 Status: F Source: MANDAEN 5:59 AM [facility] REPOSITORY TYPE CODE TESTS RESULT OUT OF RANGE REFERENCE UNITS LAB 20711147(L 70-99 mg/dL OINC) Glucose Normal Lvl 99 LAB 20740492(L 8.4-10.2 mg/dL OINC) Calcium Normal Lvl 8.9 LAB 60252908(L 136-145 mEq/L OINC) Sodium Normal Lvl 141 LAB 28690856(L 3.5-5.1 mEq/L OINC) Normal Potassium Lvl 3.8 LAB 65908681(L 98-107 mEq/L OINC) High Chloride 112 LAB 58771530(L 24.0-30.0 mEq/L OINC) Low CO2 22.7 LAB 43690325(L 7-18 mg/dL OINC) High BUN 21 LAB 1592954(LO 0.6-1.3 mg/dL INC) High Creatinine 2.4 LAB 70150214(L 5.4-30.0 ratio OINC) Normal BUN/Creat Ratio 8.8 Performed By: #### [id number] #### SUSANNA [facility] [address] [place] [address] EGFR Collected: 03/25/2017 Status: F Source: MANDAEN 5:59 AM [facility] REPOSITORY Order Comment: Order added by Discern Expert. TYPE CODE TESTS RESULT OUT OF RANGE REFERENCE UNITS LAB 08082510(LO mL/min/1.73 INC) m2 Normal eGFR 20 LAB 05118764(LO mL/min/1.73 INC) m2 Normal eGFR AA 25 Performed By: #### [id number] #### SUSANNA [facility] [address] [place], [place] [address] GLUCOSE POC Collected: 03/24/2017 Status: F Source: MANDAEN 8:55 PM [facility] REPOSITORY TYPE CODE TESTS RESULT OUT OF REFERENCE UNITS RANGE LAB 63548520(LO 70-99 mg/dL INC) High Glucose POC 281 Performed By: #### [id number] #### SUSANNA POC Subsection [address] [place] [address] GLUCOSE POC Collected: 03/24/2017 Status: F Source: MANDAEN 4:21 PM [facility] REPOSITORY TYPE CODE TESTS RESULT OUT OF REFERENCE UNITS RANGE LAB 11771623(LO 70-99 mg/dL INC) Low Glucose POC 69 Performed By: #### [id number] #### SUSANNA POC [address]section [address] [place] [address] GLUCOSE POC Collected: 03/24/2017 Status: F Source: MANDAEN 11:18 AM [facility] REPOSITORY TYPE CODE TESTS RESULT OUT OF REFERENCE UNITS RANGE LAB 25347415(LO 70-99 mg/dL INC) High Glucose POC 296 Performed By: #### [id number] #### SUSANNA POC [address]section [address] [place] [address] GLUCOSE POC Collected: 03/24/2017 Status: F Source: MANDAEN 7:26 AM [facility] REPOSITORY TYPE CODE TESTS RESULT OUT OF RANGE REFERENCE UNITS LAB 48124204(LO 70-99 mg/dL INC) Normal Glucose POC 88 Performed By: #### [id number] #### SUSANNA POC Subsection [address] [place] [address] CBC W/ AUTO DIFF Collected: 03/24/2017 Status: F Source: MANDAEN 6:26 AM [facility] REPOSITORY TYPE CODE TESTS RESULT OUT OF RANGE REFERENCE UNITS LAB [id number](L 3.6-11.0 E3/mcL OINC) Normal WBC 8.9 LAB 21062738(L 3.90-5.40 E6/mcL OINC) Low RBC 3.74 LAB 78224691(L 12.0-16.0 G/DL OINC) Low Hgb 11.3 LAB 16895410(L 36.0-48.0 % OINC) Low Hct 34.9 LAB 26513016(L 11.5-14.5 % OINC) Normal RDW 13.9 LAB 88130241(L 27.0-31.0 pg OINC) Normal MCH 30.3 LAB 31521776(L 33.0-37.0 G/DL OINC) Low MCHC 32.4 LAB 19920105(L 78.0-100.0 fL OINC) Normal MCV 93.4 LAB 97879445(L 7.4-11.0 fL OINC) Normal MPV 8.5 LAB 98423426(L 130-400 E3/mcL OINC) Normal Platelet 327 Performed By: #### [id number] #### SUSANNA WilhelmHemdani [facility] [place] [address] MANUAL DIFF Collected: 03/24/2017 Status: F Source: MANDAEN 6:26 AM [facility] REPOSITORY Order Comment: Order Added by Discern Expert. TYPE CODE TESTS RESULT OUT OF REFERENCE UNITS RANGE LAB [id number]( 37-75 % LOINC) Segs Man 61 Normal LAB 68072710( 14-48 % LOINC) Lymph Man 28 Normal LAB 53789753( 1-11 % LOINC) Monocyte 4 Normal Man LAB 95480049( 0-5 % LOINC) Eos Man 7 High LAB 44845900( 0-1 % LOINC) Basophil 0 Normal Man LAB 19016609( LOINC) RBC Morph SEE Normal MORPHOLOGY LAB 61209364( LOINC) 1+ Normal Anisocytosis Performed By: #### [id number] #### SUSANNA WilhelmHemo [facility] [place] [address] ZZPLT MORPH Collected: 03/24/2017 Status: F Source: MANDAEN 6:26 AM [facility] REPOSITORY TYPE CODE TESTS RESULT OUT OF RANGE REFERENCE UNITS LAB 70005789(L OINC) Normal Platelet NORMAL Estimate LAB 13244420(L OINC) Normal Platelet Morph NORMAL Performed By: #### [id number] #### SUSANNA WilhelmHemo [facility] [place] [id number] .MANUAL ABS Collected: 03/24/2017 Status: F Source: MANDAEN 6:26 AM [facility] REPOSITORY Order Comment: Order Added by Discern Expert. TYPE CODE TESTS RESULT OUT OF RANGE REFERENCE UNITS LAB 20022817(L 1.4-6.5 10x3/ OINC) Normal Segs Abs Man 5.4 LAB 46206439(L 1.2-3.4 10x3/ OINC) Normal Lymph Abs Man 2.5 LAB 05064621(L 0.0-0.7 10x3/ OINC) Normal [place] Abs Man 0.4 LAB 43017696(L 0.0-0.5 10x3/ OINC) High Eos Abs Man 0.6 LAB 20418666(L 0.0-0.2 10x3/ OINC) Normal Basophil Abs 0.0 Man Performed By: #### [id number] #### SUSANNA RemHemo [address] [place] [address] BMP Collected: 03/24/2017 Status: F Source: MANDAEN 6:26 AM [facility] REPOSITORY TYPE CODE TESTS RESULT OUT OF RANGE REFERENCE UNITS LAB 60664503(L 70-99 mg/dL OINC) Glucose Normal Lvl 83 LAB 77349436(L 7-18 mg/dL OINC) High BUN 25 LAB 6653061(LO 0.6-1.3 mg/dL INC) High Creatinine 3.2 LAB 58889828(L 5.4-30.0 ratio OINC) Normal BUN/Creat Ratio 7.8 LAB 24735162(L 8.4-10.2 mg/dL OINC) Calcium Normal Lvl 8.8 LAB 15930075(L 136-145 mEq/L OINC) Sodium Normal Lvl 139 LAB 00486642(L 3.5-5.1 mEq/L OINC) Normal Potassium Lvl 4.0 LAB 26565705(L 98-107 mEq/L OINC) Chloride Normal 107 LAB 81439979(L 24.0-30.0 mEq/L OINC) Low CO2 23.6 Performed By: #### [id number] #### SUSANNA [employer] [address] [place] [address] EGFR Collected: 03/24/2017 Status: F Source: MANDAEN 6:26 AM [facility] REPOSITORY Order Comment: Order added by Discern Expert. TYPE CODE TESTS RESULT OUT OF RANGE REFERENCE UNITS LAB 50160330(LO mL/min/1.73 INC) m2 Normal eGFR 15 LAB 83515230(LO mL/min/1.73 INC) m2 Normal eGFR AA 18 Performed By: #### [id number] #### SUSANNA [employer] [address] [place] [address] Observed: 03/23/2017 Status: F Source: MANDAEN C URINE 9:00 PM [facility] REPOSITORY Order Comment: PLEASE USE URINE IN LAB Final Report: >100,000 cfu/ml Streptococcus agalactiae (Group B) ORGANISM: Strep B SUSCEPTIBILITY RESULTS Antibiotic ANA MARIA Dilutn ANA MARIA Interp ORGANISM: Strep B Levo : <=1 S Pen : <=0.03 S Vanc : 0.5 S Performed By: #### [id number] #### SUSANNA Microbiology Subsection [address] [place] [address] GLUCOSE POC Collected: 03/23/2017 Status: F Source: MANDAEN 8:58 PM [facility] REPOSITORY TYPE CODE TESTS RESULT OUT OF REFERENCE UNITS RANGE LAB 14159663(LO 70-99 mg/dL INC) High Glucose POC 165 Performed By: #### [id number] #### SUSANNA POC Subsection [address] [place] [address] UA COMPLETE Collected: 03/23/2017 Status: F Source: MANDAEN 8:37 PM [facility] REPOSITORY TYPE CODE TESTS RESULT OUT OF RANGE REFERENCE UNITS LAB 96707583( Yellow LOINC) Normal UA Color Yellow LAB 53911191( Clear LOINC) UA Clarity Abnormal Cloudy LAB 09297267( Negative LOINC) Normal UA Glucose Negative LAB 56569954( Negative LOINC) Normal UA Bili Negative LAB 40280865( Negative LOINC) Normal UA Ketones Negative LAB 79026871( 1.003-1.030 LOINC) Normal UA Spec Grav 1.017 LAB 33310408( 4.6-8.0 LOINC) Normal UA pH 5.0 LAB 99337352( Negative LOINC) UA Protein Abnormal 1+ LAB 87890853( mg/dL LOINC) Normal UA Urobilinogen Negative LAB 04837961( Negative LOINC) Normal UA Nitrite Negative LAB 48220318( Negative LOINC) Normal UA Blood Negative LAB 64799351( Negative LOINC) UA Leuk Est Abnormal 3+ LAB 31765053( 0-3 /HPF LOINC) UA RBC Abnormal 10-20 LAB 96185303( 0-5 /HPF LOINC) UA WBC Abnormal 5-10 LAB 54884572( 0-2 /LPF LOINC) UA Hyal Abnormal Cast 10-20 LAB 63121554( 0-5 /HPF LOINC) UA Squam Abnormal Epithelial 5-10 LAB 03071363( None /HPF LOINC) UA Bacteria Abnormal Trace LAB 77998083( Trace /LPF LOINC) UA Mucous Abnormal Trace Performed By: #### [id number] #### SUSANNA Urinalysis Automated Subsection [facility] [place] [address] U CREATININE Collected: 03/23/2017 Status: F Source: MANDAEN 8:37 PM [facility] REPOSITORY TYPE CODE TESTS RESULT OUT OF RANGE REFERENCE UNITS LAB 02923154(L OINC) U Normal Creatinine 279 Performed By: #### [id number] #### SUSANNA [address] [address] U SODIUM Collected: 03/23/2017 Status: F Source: MANDAEN 8:37 PM [facility] REPOSITORY TYPE CODE TESTS RESULT OUT OF RANGE REFERENCE UNITS LAB 62395943(LO INC) Normal U Sodium <100 Performed By: #### [id number] #### SUSANNA [address] [address] U PROTEIN Collected: 03/23/2017 Status: F Source: MANDAEN 8:37 PM [facility] REPOSITORY TYPE CODE TESTS RESULT OUT OF RANGE REFERENCE UNITS LAB 67864988(LO 1-14 mg/dL INC) Normal Ur Total <6 Protein Performed By: #### [id number] #### SUSANNA RemChem [facility] [place] [address] POTASSIUM Collected: 03/23/2017 Status: F Source: MANDAEN 6:18 PM [facility] REPOSITORY TYPE CODE TESTS RESULT OUT OF RANGE REFERENCE UNITS LAB 77482153(L 3.5-5.1 mEq/L OINC) Normal Potassium Lvl 3.7 Performed By: #### [id number] #### SUSANNA [address] [address] GLUCOSE POC Collected: 03/23/2017 Status: F Source: MANDAEN 5:06 PM [facility] REPOSITORY TYPE CODE TESTS RESULT OUT OF REFERENCE UNITS RANGE LAB 79803766(LO 70-99 mg/dL INC) High Glucose POC 144 Performed By: #### [id number] #### SUSANNA POC Subsection [address] [place] [address] GLUCOSE POC Collected: 03/23/2017 Status: F Source: MANDAEN 4:48 PM [facility] REPOSITORY TYPE CODE TESTS RESULT OUT OF REFERENCE UNITS RANGE LAB 17240809(LO 70-99 mg/dL INC) Low Glucose POC 58 Result Comment: Follow Hypoglycemia Protocol Performed By: #### [id number] #### SUSANNA POC Subsection [address] [place] [address] GLUCOSE POC Collected: 03/23/2017 Status: F Source: MANDAEN 4:27 PM [facility] REPOSITORY TYPE CODE TESTS RESULT OUT OF REFERENCE UNITS RANGE LAB 90541611(LO 70-99 mg/dL INC) Low Glucose POC 51 Result Comment: Follow Hypoglycemia Protocol Performed By: #### [id number] #### SUSANNA POC Subsection [address] [place] [address] GLUCOSE POC Collected: 03/23/2017 Status: F Source: MANDAEN 11:33 AM [facility] REPOSITORY TYPE CODE TESTS RESULT OUT OF REFERENCE UNITS RANGE LAB 45228820(LO 70-99 mg/dL INC) High Glucose POC 225 Performed By: #### [id number] #### SUSANNA POC Subsection [address] [place] [address] GLUCOSE POC Collected: 03/23/2017 Status: F Source: MANDAEN 7:28 AM [facility] REPOSITORY TYPE CODE TESTS RESULT OUT OF RANGE REFERENCE UNITS LAB 79969502(LO 70-99 mg/dL INC) Normal Glucose POC 99 Performed By: #### [id number] #### SUSANNA POC Subsection [address] [place] [address] CBC W/ AUTO DIFF Collected: 03/23/2017 Status: F Source: MANDAEN 5:55 AM [facility] REPOSITORY TYPE CODE TESTS RESULT OUT OF RANGE REFERENCE UNITS LAB 78495529(L 3.6-11.0 E3/mcL OINC) High WBC 12.0 LAB 54379496(L 3.90-5.40 E6/mcL OINC) Normal RBC 4.02 LAB 09094721(L 12.0-16.0 G/DL OINC) Normal Hgb 12.3 LAB 77307569(L 36.0-48.0 % OINC) Normal Hct 36.6 LAB 45978349(L 11.5-14.5 % OINC) Normal RDW 13.9 LAB 84712012(L 27.0-31.0 pg OINC) Normal MCH 30.6 LAB 13075270(L 33.0-37.0 G/DL OINC) Normal MCHC 33.6 LAB 41945108(L 78.0-100.0 fL OINC) Normal MCV 91.1 LAB 54518834(L 7.4-11.0 fL OINC) Normal MPV 8.9 LAB 93529376(L 130-400 E3/mcL OINC) Normal Platelet 356 Performed By: #### [id number] #### SUSANNA RemHemo [address] [place] [address] AUTO DIFF Collected: 03/23/2017 Status: F Source: MANDAEN 5:55 AM [facility] REPOSITORY Order Comment: Order Added by Discern Expert. TYPE CODE TESTS RESULT OUT OF RANGE REFERENCE UNITS LAB 65045004(L 37.0-75.0 % OINC) Normal Neutro Auto 67.9 LAB 98935714(L 20.0-55.0 % OINC) Normal Lymph Auto 21.1 LAB 57548374(L 0.0-10.0 % OINC) Normal [place] Auto 5.1 LAB 16668979(L 0.0-11.0 % OINC) Normal Eos Auto 5.2 LAB 52631156(L 0.0-2.0 % OINC) Normal Basophil Auto 0.7 LAB 64307075(L 1.4-6.5 E3/mcL OINC) High Neutro 8.1 Absolute LAB 62797777(L 1.2-3.4 E3/mcL OINC) Normal Lymph Absolute 2.5 LAB 60489734(L 0.0-0.7 E3/mcL OINC) Normal [place] Absolute 0.6 LAB 06284813(L 0.0-0.7 E3/mcL OINC) Normal Eos Absolute 0.6 LAB 57690547(L 0.0-0.2 E3/mcL OINC) Normal Basophil 0.1 Absolute Performed By: #### [id number] #### SUSANNA RemHemo [address] [place] [address] BMP Collected: 03/23/2017 Status: F Source: MANDAEN 5:55 AM [facility] REPOSITORY TYPE CODE TESTS RESULT OUT OF RANGE REFERENCE UNITS LAB 33001227(L 70-99 mg/dL OINC) Glucose Normal Lvl 82 LAB 70859458(L 7-18 mg/dL OINC) High BUN 28 LAB 6370789(LO 0.6-1.3 mg/dL INC) High Creatinine 3.9 LAB 36110187(L 5.4-30.0 ratio OINC) Normal BUN/Creat Ratio 7.2 LAB 72609409(L 8.4-10.2 mg/dL OINC) Calcium Normal Lvl 9.2 LAB 59932565(L 136-145 mEq/L OINC) Sodium Normal Lvl 138 LAB 48918287(L 3.5-5.1 mEq/L OINC) Low Potassium Lvl 2.8 LAB 45162780(L 98-107 mEq/L OINC) Chloride Normal 101 LAB 33406878(L 24.0-30.0 mEq/L OINC) CO2 Normal 27.2 Performed By: #### [id number] #### SUSANNA [employer] [address] [place] [address] EGFR Collected: 03/23/2017 Status: F Source: MANDAEN 5:55 AM [facility] REPOSITORY Order Comment: Order added by Discern Expert. TYPE CODE TESTS RESULT OUT OF RANGE REFERENCE UNITS LAB 59689198(LO mL/min/1.73 INC) m2 Normal eGFR 12 LAB 60424120(LO mL/min/1.73 INC) m2 Normal eGFR AA 14 Performed By: #### [id number] #### SUSANNA [facility] [address] [place] [id number] TROPONIN-I Collected: 03/23/2017 Status: F Source: MANDAEN 5:55 AM [facility] REPOSITORY TYPE CODE TESTS RESULT OUT OF RANGE REFERENCE UNITS LAB 88190727(LO .00-.03 ng/mL INC) Abnormal Alert .05 Troponin-I Result Comment: called to and read back by cierra capsp at 0636 hrs. T.G. Performed By: #### [id number] #### SUSANNA [employer] [facility] [place] [address] VIT B12 Collected: 03/23/2017 Status: F Source: MANDAEN 5:55 AM [facility] REPOSITORY TYPE CODE TESTS RESULT OUT OF REFERENCE UNITS RANGE LAB 69157993(LO 180-914 pg/mL INC) High Vitamin B12 1002 Lvl Performed By: #### [id number] #### SUSANNA [employer] [address] [place], [place] [address] HGBA1C Collected: 03/23/2017 Status: F Source: MANDAEN 5:55 AM [facility] REPOSITORY TYPE CODE TESTS RESULT OUT OF REFERENCE UNITS RANGE LAB 750382816( 4.0-6.3 % LOINC) High Hemoglobin A1c 10.8 Performed By: #### [id number] #### SUSANNA Chemistry Manual Subsection [address] [place], [place] [id number] TROPONIN-I Collected: 03/22/2017 Status: F Source: MANDAEN 10:47 PM [facility] REPOSITORY TYPE CODE TESTS RESULT OUT OF RANGE REFERENCE UNITS LAB 45173788(LO .00-.03 ng/mL INC) Abnormal Alert .05 Troponin-I Result Comment: Critical Result Topponin I: Called to: CIERRA CAPPS at: 23:13:48 by:YANET Read back by:CIERRA CAPPS Performed By: #### [id number] #### SUSANNA [employer] [address] [place] [address] GLUCOSE POC Collected: 03/22/2017 Status: F Source: MANDAEN 8:43 PM [facility] REPOSITORY TYPE CODE TESTS RESULT OUT OF REFERENCE UNITS RANGE LAB 17915560(LO 70-99 mg/dL INC) High Glucose POC 161 Performed By: #### [id number] #### SUSANNA POC Subsection [address] [place] [address] GLUCOSE POC Collected: 03/22/2017 Status: F Source: MANDAEN 6:27 PM [facility] REPOSITORY TYPE CODE TESTS RESULT OUT OF REFERENCE UNITS RANGE LAB 06097395(LO 70-99 mg/dL INC) High Glucose POC 174 Performed By: #### [id number] #### SUSANNA POC Subsection [address] [place] [address] XR CHEST 2 VIEWS Observed: 03/22/2017 Status: F Source: MANDAEN 1:09 PM [facility] REPOSITORY Exam Date/Time: 03/22/2017 13:19 EST Reason for Exam: Difficulty breathing Report XR CHEST 2 VIEWS, 03/22/2017 1:09 PM CLINICAL STATEMENT: Difficulty breathing. COMPARISON: Chest x-ray 02/10/2017. FINDINGS: Frontal and lateral views of the chest were obtained. The cardiomediastinal silhouette is within normal limits. Lungs are clear without focal airspace consolidation. No pneumothorax or pleural effusion. Surgical clips project in the upper abdomen. Remote right rib fractures noted. IMPRESSION: No acute cardiopulmonary disease. FINAL REPORT Dictated: 03/22/2017 3:13 pm Mark Funes MD Signed (Electronic Signature): 03/22/2017 3:13 pm Signed by: Mark Funes MD Technologist: TANGELA CT HEAD OR BRAIN W/O Observed: 03/22/2017 Status: F Source: MANDAEN CONTRAST 1:03 PM [facility] REPOSITORY Exam Date/Time: 03/22/2017 13:11 EST Reason for Exam: Injury Report EXAM: CT Head or Brain w/o Contrast CLINICAL STATEMENT: Dizziness. Fall with posterior laceration. COMPARISON: CT head 05/01/2016 TECHNIQUE: CT examination of the head without IV contrast. Dose reduction techniques were achieved by using automated exposure control and/or adjustment of mA and/or kV according to patient size and/or use of iterative reconstruction technique. FINDINGS: There is mild diffuse parenchymal volume loss, similar to prior. The ventricles and basal cisterns are normal size and configuration. There is no evidence of midline shift, mass, mass effect, acute hemorrhage, or abnormal extraaxial fluid collection. Acuña-white differentiation is maintained. The calvarium is intact. The visualized paranasal sinuses and mastoid air cells are clear. No soft tissue radiopaque foreign body identified. IMPRESSION: No acute intracranial abnormality. Stable mild volume loss. FINAL REPORT Dictated: 03/22/2017 3:13 pm Mark Funes MD Signed (Electronic Signature): 03/22/2017 3:13 pm Signed by: Mark Funes MD Technologist: SAMEER KING Collected: 03/22/2017 Status: F Source: MANDAEN 1:03 PM [facility] REPOSITORY TYPE CODE TESTS RESULT OUT OF RANGE REFERENCE UNITS LAB [id number](LO 1.0-1.2 INC) Normal INR 1.1 Result Comment: INR Recommended Therapeuptic Ranges: Prophylaxis/treatment of DVT and PE?2.0-3.0 Prevention of systemic embolism?.2.0-3.0 Mechanical prosthetic values?2.5-3.5 CRITICAL VALUES?.>4.0 LAB 33037566(LOINC) 11.6-14.6 second(s) Normal 13.1 PT Performed By: #### [id number] #### SUSANNA Hematology Automated Subsection [address] [place] [address] PTT Collected: 03/22/2017 Status: F Source: MANDAEN 1:03 PM [facility] REPOSITORY TYPE CODE TESTS RESULT OUT OF RANGE REFERENCE UNITS LAB [id number](LO 23.2-36.4 second(s) INC) Normal PTT 27.8 Performed By: #### [id number] #### SUSANNA Hematology Automated Subsection [address] [place] [address] PTT CONTROL RATIO Collected: 03/22/2017 Status: F Source: MANDAEN 1:03 PM [facility] REPOSITORY Order Comment: Order added by Discern Expert. TYPE CODE TESTS RESULT OUT OF RANGE REFERENCE UNITS LAB [id number](LO 0.8-1.2 ratio INC) Normal PTT Ratio 0.9 Performed By: #### [id number] #### SUSANNA Hematology Automated Subsection [address] [place] [address] CK Collected: 03/22/2017 Status: F Source: MANDAEN 1:03 PM [facility] REPOSITORY TYPE CODE TESTS RESULT OUT OF RANGE REFERENCE UNITS LAB [id number](LO 26-140 Int._Unit/L INC) Normal Total CK 48 Performed By: #### [id number] #### SUSANNA [employer] [address] [place] [address] MAGNESIUM Collected: 03/22/2017 Status: F Source: MANDAEN 1:03 PM [facility] REPOSITORY TYPE CODE TESTS RESULT OUT OF RANGE REFERENCE UNITS LAB [id number](L 1.7-2.8 mg/dL OINC) Normal Magnesium 1.7 Performed By: #### [id number] #### SUSANNA Rem[employer] [facility] [place] [id number] CBC W/ AUTO DIFF Collected: 03/22/2017 Status: F Source: MANDAEN 1:03 [facility] REPOSITORY TYPE CODE TESTS RESULT OUT OF RANGE REFERENCE UNITS LAB 12032378(L 3.6-11.0 E3/mcL OINC) Normal WBC 10.9 LAB 21556376(L 3.90-5.40 E6/mcL OINC) Normal RBC 4.30 LAB 76013865(L 12.0-16.0 G/DL OINC) Normal Hgb 13.1 LAB 63861628(L 36.0-48.0 % OINC) Normal Hct 39.6 LAB 24421492(L 11.5-14.5 % OINC) Normal RDW 13.6 LAB 63210064(L 27.0-31.0 pg OINC) Normal MCH 30.5 LAB 20574938(L 33.0-37.0 G/DL OINC) Normal MCHC 33.1 LAB 31926387(L 78.0-100.0 fL OINC) Normal MCV 92.1 LAB 44674640(L 7.4-11.0 fL OINC) Normal MPV 8.4 LAB 24648807(L 130-400 E3/mcL OINC) Normal Platelet 393 Performed By: #### [id number] #### SUSANNA RemHemo [facility] [place] [id number] MANUAL DIFF Collected: 03/22/2017 Status: F Source: MANDAEN 1:03 [facility] REPOSITORY Order Comment: Order Added by Discern Expert. TYPE CODE TESTS RESULT OUT OF REFERENCE UNITS RANGE LAB 01700937( 37-75 % LOINC) Segs Man 81 High LAB 07998613( 14-48 % LOINC) Lymph Man 17 Normal LAB 38727531( 1-11 % LOINC) Monocyte Man 2 Normal LAB 04872593( 0-5 % LOINC) Eos Man 0 Normal LAB 56641691( 0-1 % LOINC) Basophil Man 0 Normal LAB 33675316( LOINC) RBC Morph SEE Normal MORPHOLOGY LAB 02666570( LOINC) Hypochromasia 1+ Normal LAB 20935478( LOINC) Anisocytosis 1+ Normal Performed By: #### [id number] #### SUSANNA MelonieHemo [address] [place] [address] ZZPLT MORPH Collected: 03/22/2017 Status: F Source: MANDAEN 1:03 [facility] REPOSITORY TYPE CODE TESTS RESULT OUT OF RANGE REFERENCE UNITS LAB 76994075(L OINC) Normal Platelet NORMAL Estimate LAB 77648714(L OINC) Normal Platelet Morph NORMAL Performed By: #### [id number] #### SUSANNA WilhelmHemo [address] [place] [address] .MANUAL ABS Collected: 03/22/2017 Status: F Source: MANDAEN 1:03 [facility] REPOSITORY Order Comment: Order Added by Discern Expert. TYPE CODE TESTS RESULT OUT OF RANGE REFERENCE UNITS LAB 12427741(L 1.4-6.5 10x3/ OINC) High Segs Abs Man 8.8 LAB 76339591(L 1.2-3.4 10x3/ OINC) Normal Lymph Abs Man 1.9 LAB 59233871(L 0.0-0.7 10x3/ OINC) Normal [place] Abs Man 0.2 LAB 94851062(L 0.0-0.5 10x3/ OINC) Normal Eos Abs Man 0.0 LAB 14040593(L 0.0-0.2 10x3/ OINC) Normal Basophil Abs 0.0 Man Performed By: #### [id number] #### SUSANNA MelonieHemo [address] [place] [address] CKMB Collected: 03/22/2017 Status: F Source: MANDAEN 1:03 [facility] REPOSITORY TYPE CODE TESTS RESULT OUT OF RANGE REFERENCE UNITS LAB 99146841(LO 0.0-5.0 ng/mL INC) Normal CK MB 1.5 Performed By: #### [id number] #### SUSANNAKarely [employer] [address] [place] [address] BMP Collected: 03/22/2017 Status: F Source: MANDAEN 1:03 [facility] REPOSITORY TYPE CODE TESTS RESULT OUT OF RANGE REFERENCE UNITS LAB 80942354(L 70-99 mg/dL OINC) Abnormal Alert Glucose Lvl 490 Result Comment: Critical Result GLU: Called to: MARIELENA WHITTINGTON at: 13:43:53 by:DEVAN Read back by:MARIELENA WHITTINGTON LAB 26484278(LOINC) 7-18 mg/dL BUN High 26 LAB 8969706(LOINC) 0.6-1.3 mg/dL High Creatinine 3.3 LAB 87367481(LOINC) 5.4-30.0 ratio Normal BUN/Creat Ratio 7.9 LAB 60779999(LOINC) 8.4-10.2 mg/dL Calcium Normal Lvl 9.7 LAB 77866993(LOINC) 136-145 mEq/L Low Sodium Lvl 132 LAB 11700768(LOINC) 3.5-5.1 mEq/L Low Potassium Lvl 3.3 LAB 25360476(LOINC) 98-107 mEq/L Low Chloride 92 LAB 00227188(LOINC) 24.0-30.0 mEq/L Low CO2 23.8 Performed By: #### [id number] #### SUSANNA [employer] [address] [place] [address] EGFR Collected: 03/22/2017 Status: F Source: MANDAEN 1:03 [facility] REPOSITORY Order Comment: Order added by Discern Expert. TYPE CODE TESTS RESULT OUT OF RANGE REFERENCE UNITS LAB 26058663(LO mL/min/1.73 INC) m2 Normal eGFR 14 LAB 55676929(LO mL/min/1.73 INC) m2 Normal eGFR AA 17 Performed By: #### [id number] #### SUSANNA [employer] [address] [place] [address] TROPONIN-I Collected: 03/22/2017 Status: F Source: MANDAEN 1:03 [facility] REPOSITORY TYPE CODE TESTS RESULT OUT OF RANGE REFERENCE UNITS LAB 38107965(LO .00-.03 ng/mL INC) High .04 Troponin-I Result Comment: Critical Result Topponin I: Called to: MARIELENA WHITTINGTON at: 13:58:10 by:DEVAN Read back by:MARIELENA WHITTINGTON Performed By: #### [id number] #### SUSANNA [employer] [address] [place] [address] TSH Collected: 03/22/2017 Status: F Source: MANDAEN 1:03 [facility] REPOSITORY TYPE CODE TESTS RESULT OUT OF RANGE REFERENCE UNITS LAB [id number](LO 0.30-5.60 mIU/m INC) Normal TSH 1.16 Performed By: #### [id number] #### SUSANNA [employer] [address] [place] [address] HGBA1C Collected: 03/22/2017 Status: F Source: MANDAEN 1:03 PM [facility] REPOSITORY TYPE CODE TESTS RESULT OUT OF REFERENCE UNITS RANGE LAB 842149981( 4.0-6.3 % LOINC) High Hemoglobin A1c 10.7 Performed By: #### [id number] #### SUSANNA Chemistry Manual Subsection [address] [place] [address] GLUCOSE POC Collected: 03/22/2017 Status: F Source: MANDAEN 12:39 PM [facility] REPOSITORY TYPE CODE TESTS RESULT OUT OF REFERENCE UNITS RANGE LAB 00466052(LO 70-99 mg/dL INC) High Glucose POC 398 Performed By: #### [id number] #### SUSANNA POC Subsection [address] [place] [address] XR SPINE LUMBOSACRAL Observed: 03/04/2017 Status: F Source: MANDAEN COMPLETE W/ BENDING 2:10 PM [facility] REPOSITORY Exam Date/Time: 03/04/2017 14:30 EST Reason for Exam: lumbar spondylolysis Report EXAM: XR SPINE LUMBOSACRAL COMPLETE WITH BENDING REASON FOR EXAM: lumbar spondylolysis. TECHNIQUE: AP, lateral, both oblique, and lateral lumbosacral spot images. Additional lateral flexion and extension images were obtained. COMPARISON: Lumbar spine 01/19/2017. FINDINGS: There is again degenerative disc finding at the lumbosacral level with the grade 2 spondylolisthesis. There is anterior subluxation of L4 on L5 of 12.6 mm in neutral position, 14.6 mm in flexion position, and 9 mm in lateral extension position suggesting a degree of instability. Bilateral associated spondylolysis is seen at L5. Remainder of the pars intra-articularis appear intact. Remainder of the disc spaces are relatively preserved. There is mild narrowing at the L2-L3 level. There is mild lower dorsal and upper lumbar scoliotic curvature, convex right. IMPRESSION: No interval fracture or subluxation. 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 FINAL REPORT Dictated: 03/04/2017 4:25 pm Shimon Salinas DO Signed (Electronic Signature): 03/04/2017 4:25 pm Signed by: Shimon Salinas DO Technologist: MJ MICROALB/CREAT RATIO Collected: 02/19/2017 Status: F Source: [facility] 11:59 AM [facility] REPOSITORY TYPE CODE TESTS RESULT OUT OF REFERENCE UNITS RANGE LAB 59736251(L 0.0-1.9 mg/dL OINC) Ur High Microalbumin 4.9 LAB [id number](L 20.0-300.0 mg/dL OINC) Ur Creat Normal 91.0 LAB [id number](L 0-30 ug/mg OINC) Microalb/Creat High 54 Performed By: #### [id number] #### SUSANNA [facility] [address] [place] [address] U CREATININE Collected: 02/19/2017 Status: F Source: MANDAEN 11:58 AM [facility] REPOSITORY TYPE CODE TESTS RESULT OUT OF RANGE REFERENCE UNITS LAB [id number](L 20-300 mg/dL OINC) U Normal Creatinine 88 Performed By: #### [id number] #### SUSANNA [facility] [address] [place] [address] U PROTEIN Collected: 02/19/2017 Status: F Source: MANDAEN 11:58 AM [facility] REPOSITORY TYPE CODE TESTS RESULT OUT OF REFERENCE UNITS RANGE LAB [id number](LO 1-14 mg/dL INC) Ur High Total Protein 41 Performed By: #### [id number] #### SUSANNA [facility] [address] [place] [address] CBC W/ AUTO DIFF Collected: 02/18/2017 Status: F Source: MANDAEN 2:23 PM [facility] REPOSITORY TYPE CODE TESTS RESULT OUT OF RANGE REFERENCE UNITS LAB [id number](L 3.6-11.0 E3/mcL OINC) Normal WBC 8.7 LAB 65254074(L 3.90-5.40 E6/mcL OINC) Normal RBC 3.95 LAB 04776607(L 12.0-16.0 G/DL OINC) Normal Hgb 12.2 LAB 07397296(L 36.0-48.0 % OINC) Normal Hct 36.9 LAB 45995800(L 11.5-14.5 % OINC) High RDW 14.7 LAB 69941490(L 27.0-31.0 pg OINC) Normal MCH 30.9 LAB 45952241(L 33.0-37.0 G/DL OINC) Normal MCHC 33.1 LAB 42016831(L 78.0-100.0 fL OINC) Normal MCV 93.5 LAB 04584492(L 7.4-11.0 fL OINC) Normal MPV 8.8 LAB 58360239(L 130-400 E3/mcL OINC) Normal Platelet 323 Performed By: #### [id number] #### SUSANNA RemHemo [address] [place] 9992505 AUTO DIFF Collected: 02/18/2017 Status: F Source: MANDAEN 2:23 PM [facility] REPOSITORY Order Comment: Order Added by Discern Expert. TYPE CODE TESTS RESULT OUT OF RANGE REFERENCE UNITS LAB [id number](L 37.0-75.0 % OINC) High Neutro Auto 75.9 LAB 84841272(L 20.0-55.0 % OINC) Low Lymph Auto 12.9 LAB 45334824(L 0.0-10.0 % OINC) Normal [place] Auto 4.5 LAB 90159370(L 0.0-11.0 % OINC) Normal Eos Auto 6.2 LAB 13950161(L 0.0-2.0 % OINC) Normal Basophil Auto 0.5 LAB 89400230(L 1.4-6.5 E3/mcL OINC) High Neutro 6.6 Absolute LAB 60380615(L 1.2-3.4 E3/mcL OINC) Low Lymph Absolute 1.1 LAB 17238543(L 0.0-0.7 E3/mcL OINC) Normal [place] Absolute 0.4 LAB 18304613(L 0.0-0.7 E3/mcL OINC) Normal Eos Absolute 0.5 LAB 35992892(L 0.0-0.2 E3/mcL OINC) Normal Basophil 0.0 Absolute Performed By: #### [id number] #### SUSANNA RemHemo [address] [place] 9992505 RENAL PANEL Collected: 02/18/2017 Status: F Source: MANDAEN 2:23 [facility] REPOSITORY TYPE CODE TESTS RESULT OUT OF RANGE REFERENCE UNITS LAB 71886011(L 3.2-5.0 G/DL OINC) Albumin Normal Lvl 3.3 LAB 02824548(L 2.5-4.6 mg/dL OINC) Normal Phosphorus 3.2 LAB 97867877(L 8.4-10.2 mg/dL OINC) Calcium Normal Lvl 9.3 LAB 32906490(L 24.0-30.0 mEq/L OINC) Low CO2 17.7 LAB 42250056(L 98-107 mEq/L OINC) Chloride Normal 103 LAB 3460775(LO 0.6-1.3 mg/dL INC) High Creatinine 2.4 LAB 70398879(L 70-99 mg/dL OINC) High Glucose Lvl 284 LAB 00898836(L 7-18 mg/dL OINC) High BUN 21 LAB 02657953(L 136-145 mEq/L OINC) Low Sodium Lvl 130 LAB 94391011(L 3.5-5.1 mEq/L OINC) Normal Potassium Lvl 4.3 LAB 15157687(L 5.4-30.0 ratio OINC) Normal BUN/Creat Ratio 8.8 Performed By: #### [id number] #### SUSANNA [facility] [address] [place] [address] EGFR Collected: 02/18/2017 Status: F Source: MANDAEN 2:[address] [place] [address] REPOSITORY Order Comment: Order added by Discern Expert. TYPE CODE TESTS RESULT OUT OF RANGE REFERENCE UNITS LAB 56108938(LO mL/min/1.73 INC) m2 Normal eGFR 20 LAB 86478473(LO mL/min/1.73 INC) m2 Normal eGFR AA 25 Performed By: #### [id number] #### SUSANNA [facility] [address] [place] [address] VITAMIN D 25 HYDROXY Collected: 02/18/2017 Status: F Source: MANDAEN 2:23 [facility] REPOSITORY TYPE CODE TESTS RESULT OUT OF RANGE REFERENCE UNITS LAB 273213414(L 30.0-100.0 ng/mL OINC) Normal Vitamin D 25 55.6 Hydroxy Performed By: #### [id number] #### SUSANNA [facility] [address] [place] 9992505 PTH INTACT Collected: 02/18/2017 Status: F Source: MANDAEN 2:23 PM [facility] REPOSITORY TYPE CODE TESTS RESULT OUT OF RANGE REFERENCE UNITS LAB 16070774(LO 15-65 pg/mL INC) Normal PTH Intact 24 Result Comment: Performed At: [facility] [address] [id number] Noy Patton PhD Ph:[phone] Performed By: #### [id number] #### SUSANNA Send Outs Subsection [address] [place] 9992505 XR RIBS W/ PA CHEST Observed: 02/10/2017 Status: F Source: MANDAEN RIGHT 9:07 AM [facility] REPOSITORY Exam Date/Time: 02/10/2017 09:35 EST Reason for Exam: Pain, Traumatic Report CHEST PA WITH RIGHT RIBS-7 FILMS HISTORY: Fall. Right rib pain. Comparison: 08/26/2016. FINDINGS: The lungs are bilaterally clear. There is no infiltrate, pneumothorax or atelectasis. No pleural effusion is present. There are healing fractures, seen in the right lateral seventh, eighth, ninth and 10th ribs. No lytic lesion is seen. IMPRESSION: Healing fractures with bony callus, which have been present on the previous examination of 08/26/2016. These do not appear to be pathologic. If there is any concern of a pathologic fracture, then bone scanning should be done to assess for other sites of involvement. FINAL REPORT Dictated: 02/10/2017 10:02 am Jono Begum MD Signed (Electronic Signature): 02/10/2017 10:02 am Signed by: Jono Begum MD Technologist: XR KNEE COMPLETE LEFT Observed: 02/10/2017 Status: F Source: MANDAEN 9:07 AM [facility] REPOSITORY Exam Date/Time: 02/10/2017 09:35 EST Reason for Exam: Pain, Traumatic Report LEFT KNEE-4 VIEWS HISTORY: Pain. Injury. FINDINGS: There is no fracture. The articular margins are intact. No joint effusion is seen. The patellofemoral joint is normal. IMPRESSION: No fracture or dislocation. FINAL REPORT Dictated: 02/10/2017 10:04 am Jono Begum MD Signed (Electronic Signature): 02/10/2017 10:04 am Signed by: Jono Begum MD Technologist: GATITO ALLERGIES ALLERGIES DATE TYPE / CODE NAME / CODE REACTION SEVERITY SOURCE Drug morphine/[id number]( Go Nuts [place] 8 Allergy/708192633 RXNORM) [facility] (SNOMED CT) Hospital Repository Drug azithromycin/W611275 Diarrhea [place] 8 Allergy/163903024 635(RXNORM) [facility] (SNOMED CT) Hospital Repository Drug Penicillins/Q8672536 Unknown [place] 8 Allergy/989843956 76(RXNORM) [facility] (SNOMED CT) Hospital Repository Drug cefaclor/Q912026895( Unknown [place] 8 Allergy/526109762 RXNORM) [facility] (SNOMED CT) Hospital Repository Miscellaneous c-clor Unknown [place] 8 Allergy/670556073 [facility] (SNOMED CT) Hospital Repository Drug Sulfa (Sulfonamide Hives Unknown [place] 8 Allergy/343440769 Antibiotics)/D467535 [facility] (SNOMED CT) 491(RXNORM) Hospital Repository Drug/374063767(SN erythromycin 745979651 Severe Sikh OMED [facility]) [facility] Rep[facility] Drug/845331391(SN amoxicillin 457054252 Severe Sikh OMED CT) [facility] Repository Drug/305058097(SN sulfamethoxazole 127941226 Sikh OMED [facility]) [facility] Repository Drug/157442605(SN morphine HIVES Sikh OMED CT) [facility] Repository Drug/184600302(SN simvastatin hand and Sikh OMED CT) ankle [facility] Repository Miscellaneous Ceclor Rash Mild [place] Allergy/380883370 [facility] (SNOMED [facility] Repository Drug/091200501(SN Imitrex CHEST PAIN Sikh OMED CT) [facility] Repository Drug/670755015(SN Levaquin Psychotic Moderate Sikh OMED CT) [facility] Repository Drug/363889344(SN statins SWELLING PT Sikh OMED CT) THINKS [facility] Repository Drug/634858049(SN sulfamethoxazole 492130641 Severe Sikh OMED CT) [facility] System Repository ENCOUNTERS ENCOUNTERS ADMIT/DISCHARGE ACCOUNT NUMBER ADMITTING ENCOUNTER LOCATION SOURCE CLASS 01/14/2018 [id number] [facility] Hospital ing:LAB Repository 10/31/2017/11/01/19 [id number] Ambulatory BMSBuilding:[place] 18 [place].[facility] Hospital Repository 10/24/2017/10/25/[id number] HospitalBuild Regional ing:.Lab Health System Repository 10/24/[id number] Repository 10/22/2017 [id number] Ambulatory [facility] Hospital ing:LAB Repository 10/18/2017 [id number] Ambulatory BMSBuilding:B [place] Hospital Repository 09/23/2017/09/24/19 [id number] Ambulatory BMSBuilding:B [place] 18 [place].[facility] Repository 09/07/2017 [id number] Ambulatory [facility] Hospital ing:LAB Repository 09/07/2017 [id number] Ambulatory BMSBuilding:W [place] [facility] Repository 08/16/2017/08/17/19 [id number] Ambulatory BMSBuilding:B [place] 18 [place].[facility] Hospital Repository 08/02/2017 [id number] [facility] Hospital ing:LAB Repository 08/02/2017/08/03/19 [id number] Ambulatory BMSBuilding:B [place] 18 [place].[facility] Hospital Repository 06/28/2017 [id number] Ambulatory BMSBuilding:B [place] Hospital Repository 06/17/2017/06/19/19 [id number] [facility] [place] [address] HospitalBuild Regional ing: Health System EDRoom: WR Repository 06/09/2017/06/10/19 [id number] Stephanie Ambulatory [facility] 18 [facility] HospitalBuild Regional ing:.REHAB Health System Repository 06/09/2017/06/10/19 [id number] [place]kas, Emergency [place] [address] [facility] ing[facility] EDRoom: WR Repository 06/03/2017 [id number] Ambulatory BuildinO2 [facility] ([place]) Repository 06/03/2017 [id number] Ambulatory BuildinO2 [facility] ([place]) Repository 06/03/2017 [id number] Ambulatory BuildinSP [facility] ([place]) Repository 06/01/2017 [id number] Ambulatory [facility] CardiologyBu Regional lding:[facility] Cardiology Repository 05/31/2017 [id number] Ambulatory [facility] CardiologyBu Regional lding:[facility] Cardiology Repository 05/26/2017 [id number] Ambulatory [facility] CardiologyBui Regional lding:[facility] Cardiology Repository 05/23/2017 [id number] Ambulatory [facility] Regional lding:[facility] Cardiology Repository 05/20/2017/05/21/19 [id number] Ambulatory [address] ing:[place] Repository Medic 05/20/2017/05/21/[id number] HospitalBuild Regional ing:[facility] System Repository 05/19/2017/05/20/[id number] Stephanie[address] HospitalBuild Regional ing:[facility] est Repository 05/04/2017/05/05/[id number] Stephanie[address] HospitalBuild Regional ing:[facility] System Repository 05/02/2017/05/03/19 [id number] Ambulatory BMSBuilding:B [place] 18 [facility] Repository 04/21/2017 [id number] Ambulatory Building:[facility] Repository 04/14/2017/04/15/[id number] Stephanie[address] Regional ing:[facility] est Repository 04/05/2017/04/06/19 [id number] Emergency [place] 18 [facility] ing:ED Repository 04/05/2017/04/05/[id number] Kayleen, Emergency [address] HospitalBuild Regional ing:[facility] System EDRoom: WR Repository 04/05/2017/04/05/19 [id number] [facility] [place] [address] Radha A [facility] ing:[place] Repository MedicRoom: Room 1 03/23/2017/03/23/19 [id number] Ambulatory [address] ing:[place] Repository Medic 03/22/2017/03/25/[id number] Fred, Inpatient [place] [address] [facility] Regional ing:[facility] oom: 0320Bed: Repository 03/16/2017/03/16/19 [id number] Ambulatory [address] ing:[place] Repository Medic 03/04/2017/03/04/[id number] Sohan[address] HospitalBuild Regional ing:[facility] System Repository 03/02/[id number] Stephanie JACOBS, [facility] MD Misha Manning HospitalBuild Regional ing:[facility] est Repository 03/02/2017/03/02/[id number] Erin[address] [facility] Regional ing:[facility] estRoom: Repository CD:[id number] 02/19/2017/02/19/[id number] [place], [address] HospitalBuild Regional ing:[facility] System Repository 02/18/2017/02/18/[id number] [place] HospitalBuild Regional ing:[facility] System Repository 02/10/2017/02/11/[id number] [facility] [place] [address] HospitalBuild Regional ing:[facility] System EDRoom: WR Repository 02/04/2017/04/25/[id number] [facility] ing:SH.[facility] System Repository PAYERS PAYERS ENCOUNTER GUARANTOR PAYER SUBSCRIBER SOURCE 01/14/2018 JOSH A Primary JOSH Pichardo [id number] [address] Insurance:ANTHEM BAKERDOB: Community AVEAPT MEDICARE [facility] [id number] ADVANTAPolicy Number: Repository [address]Ygv: 419 [id number] [phone] () Date:6158-45-03NG [address] [place] [address] 25[address]CO: 01/14/2018 Secondary JOSH A [place] Insurance:MEDICAIDPol BAKERDOB: [facility] icy Number: [id number] Hospital [id number] Repository Date:2018-01-14 01/14/2018 Tertiary NOT GIVENUNK [place] Insurance:SELF PAY [facility] Number: Effective Repository Date:2018-01-14 10/31/2017 JOSH A Primary JOSH A [place] [id number] [address] Insurance:ANTHEM BAKERDOB: Community [address]VEAP[address] MEDICARE SENIOR [id number] ADVANTAPolicy Number: Repository [id number]: 419 [id number] [phone] () Date:[id number] [address]RM: 10/31/2017 Secondary JOSH A [place] Insurance:MEDICAIDPol BAKERDOB: Community icy Number: [id number] Hospital [id number] Repository Date:2017-09-23 10/31/2017 Tertiary NOT GIVENUNK [place] Insurance:SELF PAY [facility] Number: Effective Repository Date:2017-10-31 10/24/2017 JOSH A Primary JOSH Reynolds BAKERDOB: Insurance:ANTHEMPolic BAKERDOB: [facility] [id number] y Number: Effective [id number] Date:2017-10-[address] Repository [address] [place] [address] [id number] [address] [place] [address]Ysy: Name:CD:[id number] [address]Muv: [id number], [place] (HP) [address]NK: [phone]) (HP) [phone] (WP) 10/24/2017 Secondary [facility] Insurance:MedicaidPol BAKERDOB: [facility] icy Number: Effective [id number] System Date:2017-10-[address] Repository [id number] Name:CD:[id number] E [address]Qyq: [facility] [address] [place], [place] ()Tel: [phone]) [phone]: (WP) [phone] 10/24/2017 [facility] BAKERDOB: Insurance:AnthemPolic BAKERDOB: Hospitals y Number: [id number] [address]ository [address] [id number] [place] [address] Date:Plan Name:[address] [id number]: [id number]: (HP) (HP) 10/24/2017 [facility] Insurance:AnthemPolic BAKERDOB: Hospitals y Number: [id number] Repository [id number] [address] Date:Plan Name:[address] [id number]: (HP) 10/24/2017 [facility] Insurance:MedicaidPol BAKERDOB: Hospitals icy Number: [id number] Repository [id number] [address] Date:[address] Name:[facility] [phone]: [place], [place] [address]SF: [phone]) (HP) [phone] 10/22/2017 JOSH A Primary JOSH A [place] [id number] [address] Insurance:ANTHEM BAKERDOB: Community [address]VE[address] MEDICARE [facility] [id number] Number: Repository [id number]: 419 [id number] [phone] (HP) Date:9672-54-37IA [address]MVMTDMK, [place] [address]IK: 10/22/2017 Secondary JOSH A [place] Insurance:MEDICAIDPol BAKERDOB: Community icy Number: [id number] Hospital [id number] Repository Date:2017-10-21 10/22/2017 Tertiary NOT GIVENUNK [place] Insurance:SELF PAY [facility] Number: Effective Repository Date:2017-10-21 10/18/2017 JOSH A Primary JOSH A [place] [id number] [address] Insurance:ANTHEM BAKERDOB: Community [address]VE[address] MEDICARE SENIOR [id number] Number: Repository [phone]: (419 [id number] [phone] (HP) Date:2366-23-48XC [address] [place] [address] 73[address]ZO: 10/18/2017 Secondary JOSH A [place] Insurance:MEDICAIDPol BAKERDOB: Community icy Number: [id number] Hospital [id number] Repository Date:2017-08-16 10/18/2017 Tertiary NOT GIVENUNK [place] Insurance:SELF PAY [facility] Number: Effective Repository Date:2017-08-16 09/23/2017 JOSH A Primary JOSH A [place] [id number] [place] Insurance:ANTHEM BAKERDOB: Community [address]VE[address] MEDICARE [facility] [id number] Number: Repository [id number]: 419 [id number] [phone] (HP) Date:1891-81-85HN [address], [place] [address]SY: 09/23/2017 Secondary JOSH A [place] Insurance:MEDICAIDPol BAKERDOB: Community icy Number: [id number] Hospital [id number] Repository Date:2017-08-02 09/23/2017 Tertiary NOT GIVENUNK [place] Insurance:SELF PAY [facility] Number: Effective Repository Date:2017-08-11 09/07/2017 JOSH A Primary JOSH A [place] [id number] [place] Insurance:ANTHEM BAKERDOB: Community [address] MEDICARE SENIOR [id number] ADVANTAPolicy Number: Repository [id number]: (419 [id number] [phone] () Date:5995-85-92GC [address]ESZNXOI[address] [place] [address] 76[address]DC: 09/07/2017 Secondary JOSH A [place] Insurance:MEDICAIDPol BAKERDOB: [facility] icy Number: [id number] Hospital [id number] Repository Date:2017-09-07 09/07/2017 Tertiary NOT GIVENUNK [place] Insurance:SELF PAY [facility] Number: Effective Repository Date:2017-09-07 09/07/2017 JOSH A Primary JOSH A [place] [id number] [place] Insurance:ANTHEM BAKERDOB: Community [address]VE[address] MEDICARE SENIOR [id number] Number: Repository [id number]: 419 [id number] [phone] () Date:0493-08-38MR [address]XTAODZK[address] [place] [address]IS: 09/07/2017 Secondary JOSH A [place] Insurance:MEDICAIDPol BAKERDOB: Community icy Number: [id number] Hospital [id number] Repository Date:2017-09-07 09/07/2017 Tertiary NOT GIVENUNK [place] Insurance:SELF PAY [facility] Number: Effective Repository Date:2017-09-07 08/16/2017 JOSH A Primary JOSH A [place] [id number] [place] Insurance:ANTHEM BAKERDOB: Community [address]VE[address] MEDICARE [facility] [id number] ADVANTAPolicy Number: Repository [id number]: (419 [id number] [phone] (HP) Date:7893-35-82[address]FKXZMFF, [place] [address]JO: 08/16/2017 Secondary JOSH A [place] Insurance:MEDICAIDPol BAKERDOB: Community icy Number: [id number] Hospital [id number] Repository Date:2017-08-10 08/16/2017 Tertiary NOT GIVENUNK [place] Insurance:SELF PAY [facility] Number: Effective Repository Date:2017-08-16 08/02/2017 JOSH A Primary JOSH A [place] [id number] [place] Insurance:ANTHEM BAKERDOB: Community [address]VE[address] MEDICARE [facility] [id number] ADVANTAPolicy Number: Repository [id number]: 419 [id number] [phone] (HP) Date:2839-77-23CF [address]OAGWPVF, [place] [address]EO: 08/02/2017 Secondary JOSH A [place] Insurance:MEDICAIDPol BAKERDOB: Community icy Number: [id number] Hospital [id number] Repository Date:2017-08-02 08/02/2017 Tertiary NOT GIVENUNK [place] Insurance:SELF PAY [facility] Number: Effective Repository Date:2017-08-02 08/02/2017 JOSH A Primary JOSH A [place] [id number] [place] Insurance:ANTHEM BAKERDOB: Community [address]VE[address] MEDICARE [facility] [id number] ADVANTAPolicy Number: Repository [id number]: (419 [id number] [phone] (HP) Date:7086-14-20BJ [address]DPSBS[address] [place] [address]TD: 08/02/2017 Secondary JOSH A [place] Insurance:MEDICAIDPol BAKERDOB: Community icy Number: [id number] Hospital [id number] Repository Date:2017-07-06 08/02/2017 Tertiary NOT GIVENUNK [place] Insurance:SELF PAY [facility] Number: Effective Repository Date:2017-08-02 06/28/2017 JOSH A Primary JOSH A [place] [id number] [place] Insurance:ANTHEM BAKERDOB: Community [address]VE[address] MEDICARE SENIOR [id number] ADVANTAPolicy Number: Repository [id number]: (421) [id number] [phone] (HP) Date:4102-12-96ZH [address], [place] [address]ZX: 06/28/2017 Secondary JOSH A [place] Insurance:MEDICAIDPol BAKERDOB: Community icy Number: [id number] Hospital [id number] Repository Date:2017-05-31 06/28/2017 Tertiary NOT GIVENUNK [place] Insurance:SELF PAY [facility] Number: Effective Repository Date:2017-05-31 06/17/2017 JOSH A Primary JOSH A [place] BAKERDOB: Insurance:ANTHEMPolic BAKERDOB: [facility] [id number] y Number: Effective [id number] Date:2017-06-[address] Repository [address] [place] [address] [id number] [address] [place] [address] [id number]: Name:CD:[id number] [facility] [id number]: [address] [place] [address] (HP) [id number]: ([phone]) () [phone] (WP) 06/17/2017 Secondary JOSH A [place] Insurance:MedicaidPol BAKERDOB: [facility] icy Number: Effective [id number] System Date:2017-06-[address] Repository [id number] [address] [place] [address] Name:CD:[id number]: [facility] [address] [place], [place] ()Tel: [phone]) [phone]: (WP) [phone] 06/09/2017 JOSH A Primary JOSH A Sikh BAKERDOB: Insurance:ANTHEMPolic BAKERDOB: [facility] y Number: Effective [id number] System [address] Date:2017-05-[address] Repository [address] [place] [address] [id number] [address] [place] [address] [id number]: Name:CD:[id number] [facility] [id number]: 9179[address]KLSXRAZ, [place] (HP) [address]PH: ([phone]) (HP) [phone] (WP) 06/09/2017 Secondary JOSH A Sikh Insurance:MedicaidPol BAKERDOB: [facility] icy Number: Effective [id number] System Date:2017-05-[address] Repository [id number] [address] [place] [address] Name:CD:[id number] E [id number]: [address] [place], [place] (HP)Tel: [phone]) [phone]: (WP) [phone] 06/09/2017 JOSH A Primary JOSH A Sikh BAKERDOB: Insurance:ANTHEMPolic BAKERDOB: [facility] y Number: Effective [id number] Date:2017-06-[address] Repository [address] [place] [address] [id number] [address] [place] [address] [id number]: Name:CD:[id number] [facility] [id number]: 084768XFAMSII, [place] (HP) [id number]: [phone] (HP) [phone] (WP) 06/09/2017 Secondary JOSH A Sikh Insurance:MedicaidPol BAKERDOB: [facility] icy Number: Effective [id number] System Date:2017-06-[address] Repository [id number] [address] [place] [address] Name:CD:[id number] E [id number]: [address] [place] ([place])Tel: [phone]: ([phone] 06/01/2017 JOSH A Primary JOSH Reynolds BAKERDOB: Insurance:[facility]HEMPolic [facility] y Number: Effective [id number] System [address] Date:2017-06-[address] Repository [address] [place] [address] 3719-50-68Ppyo [address] [place] [address] [id number]: Name:CD:[id number] [id number]: FERMÍN AVENDANO (HP) [phone]: ([phone]) (HP) 000-0000 (WP) 06/01/2017 Secondary [place] Karely LewSikh Insurance:MedicaidPol BAKERDOB: [facility] icy Number: Effective [id number] System Date:2017-06-[address] Repository 6792-41-62Mkcg [address] [place] [address] Name:CD:[id number] E [id number]: [address] [place] (HP)Tel: ([phone]) [phone]: (WP) [phone] 05/31/2017 [place] A Primary JOSHRAQUEL Reynolds BAKERDOB: Insurance:ANTHEMPolic BAKERB: [facility] y Number: Effective [id number] [address] Date:2017-05-[address] Repository [address] [place] [address] 6764-76-26Jflf [address] [place] [address] [id number]: Name:CD:[id number] JESS [id number]: 824783LZVIVVSFERMÍN OWENS (HP) 33047VM: ([phone]) (HP) [phone] (WP) 05/31/2017 Secondary JOSH A Sikh Insurance:MedicaidPol BAKERDOB: [facility] icy Number: Effective [id number] System Date:2017-05-[address] Repository 9754-89-67Jeuv [address] [place] [address] Name:CD:[id number] E [id number]: [address] [facility], [place] (HP)Tel: [phone]) [phone]: (WP) [phone] 05/26/2017 JOSH A Primary JOSH A Sikh BAKERDOB: Insurance:ANTHEMPolic BAKERDOB: [facility] y Number: Effective [id number] [address] Date:2017-05-[address] Repository [address] [place] [address] 0575-88-54Xatw [address] [place] [address] [id number]: Name:CD:[id number] [facility] [id number]: [address] [place] [address] (HP) 47597TH: ([phone]) (HP) [phone] (WP) 05/26/2017 Secondary JOSH A Sikh Insurance:MedicaidPol BAKERDOB: [facility] icy Number: Effective [id number] System Date:2017-05-[address] Repository 8625-44-19Itky [address] [place] [address] Name:CD:[id number]: [address] [facility], [place] (HP)Tel: [phone]) [phone]: (WP) [phone] 05/23/2017 JOSH A Primary JOSH A Sikh BAKERDOB: Insurance:ANTHEMPolic BAKERDOB: [facility] y Number: Effective [id number] [address] Date:2017-05-[address] Repository [address] [place] [address] 2765-49-64Hppr [address] [place] [address] [id number]: Name:CD:[id number] [id number]: [address] [place] [address] (HP) [phone]: (562) (HP) 000-0000 (WP) 05/23/2017 Secondary JOSH A Sikh Insurance:MedicaidPol [facility] icy Number: Effective [id number] System Date:2017-05-[address] Repository 7942-17-20Igrn [address] [place] [address] Name:CD:[id number]: [facility] [address] [place], [place] ()Tel: 000 [phone]: (WP) [phone] 05/20/2017 JOSH A Primary JOSH A Sikh BAKERDOB: Insurance:ANTHEM [facility] [id number] [facility] [id number] MEDICAREPolicy [address] Repository [address] [place] [address] Number: Effective [address] [place] [address] [id number]: Date:2017-01-19 [id number]: 7188-04-62Wsai (HP) Name:CD:[id number] (HP)Tel: (000) [address]ohfrhj, [place] 000-0000 (WP) [address]PQ: 05/20/2017 Secondary JOSH A Sikh Insurance:1500 BAKERDOB: [facility] MEDICAID [id number] System PRIMARYPolicy Number: [address] Repository Effective [address] [place] [address] Date:2017-01-19 [id number]: 8917-78-02Cvjl Name:CD:[id number] O (HP)Tel: (000) [address] [place], [place] 000-0000 (WP) [phone]: 05/20/2017 JOSH A Primary JOSH A Sikh BAKERDOB: Insurance:ANTHEMPolic BAKERDOB: [facility] y Number: Effective [id number] Date:2017-05-[address] Repository [address] [place] [address] 0314-43-44Dwva [address] [place] [address] [id number]: Name:CD:[id number] [facility] [id number]: 973167FYOEIGK, [place] (HP) [address]MF: (844) (HP) 000-0000 (WP) 05/20/2017 Secondary JOSH A Sikh Insurance:MedicaidPol [facility] icy Number: Effective [id number] System Date:2017-05-[address] Repository 9640-53-23Cktd [address] [place] [address] Name:CD:[id number]: [address] [place] (HP)Tel: 000 [phone]: (WP) [phone] 05/19/2017 JOSH A Primary JOSH A Sikh BAKERDOB: Insurance:ANTHEMPolic BAKERDOB: [facility] y Number: Effective [id number] [address] Date:2017-04-[address] Repository [address] [place] [address] 1678-89-36Ycej [address] [place] [address] [id number]: Name:CD:[id number] [id number]: [id number], [place] (HP) [address]ST: (844) (HP) 000-0000 (WP) 05/19/2017 Secondary JOSH A Sikh Insurance:MedicaidPol BAKERDOB: [facility] icy Number: Effective [id number] System Date:2017-04-[address] Repository 4935-02-44Tjcx [address] [place] [address] Name:CD:[id number] E [id number]: [address] [facility] [place] (HP)Tel: ([phone]) [phone]: (WP) [phone] 05/04/2017 JOSH A Primary JOSH A Sikh BAKERDOB: [facility]os [facility] y Number: Effective [id number] Date:2017-04-[address] Repository [address] [place] [address] 7459-86-08Eysu [address] [place] [address] [id number]: Name:CD:[id number] [id number]: 756195FANEOZM, [place] (HP) [address]LG: (869) (HP) 000-0000 (WP) 05/04/2017 Secondary JOSH A Sikh Insurance:MedicaidPol BAKERDOB: [facility] icy Number: Effective [id number] System Date:2017-04-[address] Repository 0362-36-74Nore [address] [place] [address] Name:CD:[id number] E [id number]: [address] [facility] [place] (HP)Tel: ([phone]) [phone]: (WP) [phone] 05/02/2017 JOSH A Primary JOSH A [place] [id number] Insurance:ANTHEM BAKERDOB: Community [address] MEDICARE [facility] [id number] ADVANTAPolicy Number: Repository [id number]: (624) [id number] [phone] (HP) Date:9274-50-10PB [address] [place] [address] [place] [address]MM: 05/02/2017 Secondary JOSH A [place] Insurance:MEDICAIDPol BAKERDOB: Community icy Number: [id number] Hospital [id number] Repository Date:2017-04-06 05/02/2017 Tertiary NOT GIVENUNK [place] Insurance:SELF PAY [facility] Number: Effective Repository Date:2017-04-06 04/21/2017 JOSH A Primary [facility] BAKERDOB: Insurance:ANTHEM BAKERDOB: Three Repository [id number] MANAGED [id number] MEDICAREPolicy [address] [place] [address] Number: [address] [place] [address] [id number]: (525) [id number] 00829Cxj: (HP) Date:7391-08-28YC [phone] (HP) 676031QVLLFNE, [place] [address]XH: 04/21/2017 Secondary [facility] Insurance:MEDICAIDPol BAKERDOB: Three Repository icy Number: [id number] [address] Date:8426-74-83IN [address] [place] [address] [place], [place] [address]Gih: (295) [phone]: (HP) [phone] 04/14/2017 [facility] Primary [facility] BAKERDOB: Insurance:ANTHEMPolic BAKERDOB: [facility] y Number: Effective [id number] Date:2017-04-[address] Repository [address] [place] [address] 7694-59-60Qsna [address] [place] [address] [id number]: Name:CD:[id number] [id number]: FERMÍN AVENDANO (HP) [address]JY: (340) (HP) 000-0000 () 04/14/2017 Secondary JOSH A Sikh Insurance:MedicaidPol BAKERDOB: [facility] icy Number: Effective [id number] System Date:2017-04-[address] Repository 5139-62-75Uehn [address] [place] [address] Name:CD:[id number]: [address] [place], [place] (HP)Tel: (740) [phone]: (WP) [phone] 04/05/2017 JOSH A Primary JOSH A [place] [id number] Insurance:ANTHEM BAKERDOB: [address] MEDICARE [facility] [id number] ADVANTAPolicy Number: Repository [id number]: (242) [id number] [phone] (HP) Date:3945-05-70ZQ [address], [place] [address]DL: 04/05/2017 Secondary JOSH A [place] Insurance:MEDICAIDPol BAKERDOB: [facility] ic Number: [id number] Hospital [id number] Repository Date:2017-04-05 04/05/2017 Tertiary NOT GIVENUNK [place] Insurance:SELF PAY [facility] Number: Effective Repository Date:2017-04-05 04/05/2017 JOSH A Primary JOSH A Sikh BAKERDOB: Insurance:ANTHEMPolic BAKERDOB: [facility] [id number] y Number: Effective [id number] Date:2017-04-[address] Repository [address] [place] [address] 6303-53-11Uddb [address] [place] [address] [id number]: Name:CD:[id number] [id number]: 113347KBFXRJQ, [place] (HP) [address]IW: (586) (HP) 000-0000 (WP) 04/05/2017 Secondary JOSH A Sikh Insurance:MedicaidPol BAKERDOB: [facility] icy Number: Effective [id number] System Date:2017-04-05 - [address] Repository 1981-72-93Rutg [address] [place] [address] Name:CD:[id number] E [id number]: [address] [place], [place] (HP)Tel: (000) [phone]: (WP) [phone] 04/05/2017 JOSH A Primary JOSH A Sikh BAKERDOB: [facility] [id number] MEDICAREPolicy [address] Repository [address] [place] [address] Number: Effective [address] [place] [address] [id number]: Date:2017-04-05 [id number]: 3361-53-51Utew (HP) Name:CD:[id number] (HP)Tel: (000) [address], [place] 000-0000 (WP) [address]TL: 04/05/2017 Secondary JOSH A Sikh Insurance:[facility] BAKERDOB: [facility] MEDICAID [id number] System PRIMARYPolicy Number: [address] Repository Effective [address] [place] [address] Date:2017-04-05 [id number]: 9236-11-52Nvfw Name:CD:[id number] O (HP)Tel: (000) [address] [place], [place] 000-0000 (WP) [address]KU: 03/23/2017 JOSH A Primary JOSH A Sikh BAKERDOB: Insurance:[facility]M [facility] [id number] MEDICAREPolicy [address] Repository [address] [place] [address] Number: Effective [address] [place] [address] [id number]: Date:2017-03-16 [id number]: 4597-87-22Tkeo (HP) Name:CD:[id number] (HP)Tel: (000) [address] [place] [address] 000-0000 (WP) [address]XP: 03/23/2017 Secondary JOSH A Sikh Insurance:1500 BAKERDOB: [facility] MEDICAID [id number] System PRIMARYPolicy Number: [address] Repository Effective [address] [place] [address] Date:2017-03-16 [id number]: 5039-14-34Rzou Name:CD:[id number] O (HP)Tel: (000) [address] [place], [place] 000-0000 (WP) [address]CN: 03/22/2017 JOSH A Primary JOSH A Sikh BAKERDOB: Insurance:ANTHEMPolic BAKERDOB: [facility] y Number: Effective [id number] [address] Date:2017-03-[address] Repository [address] [place] [address] 9340-84-62Jtzy [address] [place] [address] [id number]: Name:CD:[id number] [facility] [id number]: [address] [place] [address] (HP) 84[address]TA: (060) (HP) 000-0000 (WP) 03/22/2017 Secondary JOHS A Sikh Insurance:MedicaidPol BAKERDOB: [facility] icy Number: Effective [id number] System Date:2017-03-[address] Repository 5720-29-76Lfen [address] [place] [address] Name:CD:[id number] E [id number]: [address] [place] (HP)Tel: (000) [phone]: (WP) [phone] 03/16/2017 JOSH A Primary JOSH A Sikh BAKERDOB: Insurance:ANTHEM BAKERDOB: [facility] MEDIBLUE [id number] MEDICAREPolicy [address] Repository [address] [place] [address] Number: Effective [address] [place] [address] [id number]: Date:2017-03-16 [id number]: 7265-50-91Kcwu (HP) Name:CD:[id number] ()Tel: (000) [address]Smlrkrl, [place] 000-0000 (WP) [address]PC: 03/16/2017 Secondary JOSH A Sikh Insurance:1500 BAKERDOB: [facility] MEDICAID [id number] System PRIMARYPolicy Number: [address] Repository Effective [address] [place] [address] Date:2017-03-16 [id number]: 7545-61-85Ojyc Name:CD:[id number] O (HP)Tel: (000) [address], [place] 000-0000 (WP) [address]RE: 03/04/2017 JOSH A Primary JOSH A Sikh BAKERDOB: Insurance:ANTHEMPolic BAKERDOB: [facility] y Number: Effective [id number] Date:2017-03-[address] Repository [address] [place] [address] 1413-65-92Tike [address] [place] [address] [id number]: Name:CD:[id number] [id number]: [id number] [place] [address] (HP) 9[address]LE: (721) (HP) 000-0000 (WP) 03/04/2017 Secondary JOSH A Sikh Insurance:MedicaidPol BAKERDOB: [facility] icy Number: Effective [id number] System Date:2017-03-[address] Repository 2514-36-16Oukg [address] [place] [address] Name:CD:[id number] E [id number]: [address] [place] (HP)Tel: (262) [phone]: (WP) [phone] 03/02/2017 JOSH A Primary JOSH A Sikh BAKERDOB: Insurance:ANTHEMPolic BAKERDOB: [facility] y Number: Effective [id number] [address] Date:2017-03-[address] Repository [address] [place] [address] 7051-50-77Gcct [address] [place] [address] [id number]: Name:CD:[id number] [id number]: 156248NONNEPZFERMÍN OWENS (HP) [address]HJ: (844) (HP) 000-0000 (WP) 03/02/2017 Secondary JOSH A Sikh Insurance:MedicaidPol BAKERDOB: [facility] icy Number: Effective [id number] System Date:2017-03-[address] Repository 3901-76-71Pkye [address] [place] [address] Name:CD:[id number] E [id number]: [address] [place] (HP)Tel: (244) [phone]: (WP) [phone] 03/02/2017 JOSH A Primary JOSH A Sikh BAKERDOB: Insurance:ANTHEMPolic BAKERDOB: [facility] y Number: Effective [id number] [address] Date:2017-02-[address] Repository [address] [place] [address] 9890-81-16Erwa [address] [place] [address] [id number]: Name:CD:[id number] [id number]: 849412WBQYPFG, [place] (HP) [address]IZ: (844) (HP) [phone] (WP) 03/02/2017 Secondary JOSH A Sikh Insurance:MedicaidPol BAKERDOB: [facility] icy Number: Effective [id number] System Date:2017-02-[address] Repository 2004-20-00Ltxd [address] [place] [address] Name:CD:[id number] E [id number]: [address] [place] (HP)Tel: 000 [phone]: (WP) [phone] 02/19/2017 JOSH A Primary JOSH A Sikh BAKERDOB: Insurance:ANTHEMPolic BAKERDOB: [facility] y Number: Effective [id number] [address] Date:2017-02-[address] Repository [address] [place] [address] 1650-89-01Fiyi [address] [place] [address] [id number]: Name:CD:[id number] [facility] [id number]: [address] [place] [address] (HP) 78[address]FK: (844) (HP) 000-0000 (WP) 02/19/2017 Secondary JOSH A Sikh Insurance:MedicaidPol BLODGETTDOB: [facility] icy Number: Effective [id number] System Date:2017-02-[address] Repository 5800-41-37Nciv [address] [place] [address] Name:CD:[id number] E [id number]: [address] [place] (HP)Tel: (000) [phone]: (WP) [phone] 02/18/2017 JOSH A Primary JOSH A Sikh BAKERDOB: Insurance:ANTHEMPolic BAKERDOB: [facility] y Number: Effective [id number] Date:2017-02-[address] Repository [address] [place] [address] 3218-58-01Xtbg [address] [place] [address] [id number]: Name:CD:[id number] JESS [id number]: JUAN ALBERTO [place] (HP) [address]WG: (844) (HP) 000-0000 (WP) 02/18/2017 Secondary JOSH A Sikh Insurance:MedicaidPol BAKERDOB: [facility] icy Number: Effective [id number] System Date:2017-02-[address] Repository 5095-09-82Vcwu [address] [place] [address] Name:CD:[id number] Pacheco [id number]: [address] [place] (HP)Tel: ([phone]) [phone]: (WP) [phone] 02/10/2017 JOSH A Primary JOSH A Sikh BAKERDOB: Insurance:ANTHEMPolic BAKERB: [facility] y Number: Effective [id number] Date:2017-02-[address] Repository [address] [place] [address] 5030-52-12Cnmq [address] [place] [address] [id number]: Name:CD:[id number] [facility] [id number]: JUAN [place]ERT[place] (HP) [address]TJ: (844) (HP) 000-0000 (WP) 02/10/2017 Secondary JOSH A Sikh Insurance:MedicaidPol BAKERDOB: [facility] icy Number: Effective [id number] System Date:2017-02-[address] Repository 7187-25-93Cipa [address] [place] [address] Name:CD:[id number]: [address] [place] ()Tel: (201) [phone]: (WP) [phone] 02/04/2017 JOSH A Primary JOSH [facility]: Insurance:ANTHEMPolic [facility]: [facility] [id number] y Number: Effective [id number] [address] Date:2017-01-[address] Repository [address] [place] [address] 9407-28-68Rmou [address] [place] [address] [id number]: Name:CD:[id number] [facility] [id number]: [address] [place] [address] (HP) 633[address]GD: (844) (HP) 000-0000 (WP) 02/04/2017 Secondary [place] Karely LewSikh Insurance:MedicaidPol [facility]: [facility] icy Number: Effective [id number] System Date:2017-01-[address] Repository 0071-27-04Wxzv [address] [place] [address] Name:CD:[id number] E [id number]: [address] [place], [place] ()Tel: (069) [phone]: (WP) [phone]
== END ==
PROVIDERS: Family Provider Internal Medicine; PCP Internal Medicine; Referring Provider Internal Medicine; Visit Provider Internal Medicine
DX: E11.9 Type 2 diabetes mellitus without complications (principal); Z79.4 Long term (current) use of insulin
CPT/HCPCS: 36415; 83036

== ENCOUNTER → 2018-04-10 15:56 | Outpatient (CLI) | payer MEDICARE, MEDICAID, SELFPAY ==
[2018-04-10 15:44] VITALS: BMI 34.4
--- NOTE | 2018-04-10 15:58 | RAD_ITS ---
STUDY: X-RAY - LUMBAR SPINE REASON FOR EXAM: Female, 67 years old. Low back pain radiating into left hip. TECHNIQUE: 3 view(s) of the lumbar spine were obtained. COMPARISON: None FINDINGS: Grade 1 anterolisthesis L5 on S1. There is no substantial scoliosis. There is a normal alignment of the vertebrae. Normal vertebral bodies and endplates. Disc space narrowing L4-5 and L5-S1. The soft tissue structures are unremarkable. Surgical clips right upper quadrant. RAD/Lumbar Spine 2 or 3 Views IMPRESSION: Degenerative changes of the lower lumbar spine. Electronically Signed: Tony Luu MD at 5:32 EST , Service support ,
--- NOTE | 2018-04-10 15:58 | RAD_ITS ---
STUDY: X-RAY - PELVIS AND LEFT HIP REASON FOR EXAM: Female, 67 years old. Pain. TECHNIQUE: 3 views of the pelvis and hip. COMPARISON: None. FINDINGS: There is a non-specific bowel gas pattern. Normal visualized soft tissue structures. Normal bilateral iliac wings, sacroiliac joints and visualized sacrum. Normal bilateral superior and inferior pubic rami. Normal pubic symphysis. Normal bilateral ischial tuberosities. Normal right hip. Normal visualized left femoral head. Normal left acetabulum. Normal left hip joint. RAD/HIP, UNI W/ Pelvis 2-3 Views IMPRESSION: Normal x-ray examination of the pelvis and left hip. Electronically Signed: Cameron Duenas DO at 23:57 EST Tel [phone], Service support ,
== END ==
PROVIDERS: Family Provider Internal Medicine; PCP Internal Medicine; Referring Provider Orthopaedic Surgery; Visit Provider Orthopaedic Surgery
DX: R20.0 Anesthesia of skin (principal); M25.552 Pain in left hip
CPT/HCPCS: 72100; 73502

== ENCOUNTER → 2018-05-03 12:33 | Outpatient (CLI) | payer MEDICARE, MEDICAID, SELFPAY ==
[2018-04-10 15:44] VITALS: BMI 34.4
--- NOTE | 2018-05-03 12:42 | MRI_ITS ---
STUDY: MRI LUMBAR SPINE WITHOUT CONTRAST REASON FOR EXAM: Female, 67 years old. DDD,SPONDYLOISTHESIS -- pain low back and rt hip x 2+ years, no prev lumbar surgery. TECHNIQUE: Standardized fat and water weighted pulse sequences were obtained in the sagittal and axial planes. COMPARISON: None FINDINGS: T12-L1: There is minimal disc space narrowing and endplate spondylosis. There is no significant disc herniation, central canal or foraminal stenosis. There is straightening of the normal lumbar lordosis. There is no substantial scoliosis. Normal conus medullaris that terminates at the L1 L1-2: There is minimal disc space narrowing and endplate spondylosis. There is no significant disc herniation, central canal or foraminal stenosis. L2-3: There is minimal disc space narrowing and endplates spondylosis. There is a mild disc bulge and facet arthropathy without significant central canal or foraminal stenosis. L3-4: There is minimal disc space narrowing and endplates spondylosis. There is mild disc bulge and facet arthropathy without significant central canal or foraminal stenosis. L4-5: There is mild disc space narrowing and endplates spondylosis. There is mild disc bulge and facet arthropathy without significant central canal stenosis. There is mild bilateral foraminal stenosis. L5-S1: There is severe disc space narrowing and endplates spondylosis. There is spondylolysis with grade 1 anterolisthesis and disc uncovering with mild central canal stenosis. There is moderate right and severe left foraminal stenosis. Normal visualized sacral ala. Normal visualized paraspinous soft tissue structures. MRI/Spine Lumbar (Routine) IMPRESSION: L5/S1: Spondylolysis with grade 1 anterolisthesis. Moderate right and severe left foraminal stenosis. Electronically Signed: Gisell Guevara MD at 12:43 EDT Tel , Service support ,
== END ==
PROVIDERS: Family Provider Internal Medicine; PCP Internal Medicine; Referring Provider Physician Assistant; Visit Provider Physician Assistant
DX: M51.36 Other intervertebral disc degeneration, lumbar region (principal); M43.17 Spondylolisthesis, lumbosacral region; M54.16 Radiculopathy, lumbar region
CPT/HCPCS: 72148

== ENCOUNTER → 2018-08-18 12:03 | Outpatient (CLI) | payer MEDICARE, MEDICAID, SELFPAY ==
[2018-07-07 10:43] VITALS: BMI 34.4
[2018-08-18 13:22] LABS: Erythrocyte Sedimentation Rate 19 mm/hr (0-30)
[2018-08-18 13:45] LABS: Vitamin B12 779 pg/mL (211-911)
[2018-08-18 13:46] LABS: Rheumatoid Factor < 10.0 IU/mL (<15); Thyroid Stim Hormone (TSH) 0.94 uIU/mL (0.358-3.74)
[2018-08-18 14:00] LABS: Hemoglobin A1c 6.9 % (4.2-6.3)
[2018-08-21 14:06] LABS: SJOGREN'S Anti-SS-A test < 0.2 AI (0.0-0.9); SJOGREN'S Anti-SS-B test < 0.2 AI (0.0-0.9)
[2018-08-21 14:49] LABS: ANTINUCLEAR ANTIBODIES DIRECT Negative (Negative)
[2018-08-22 16:08] LABS: Albumin 3.1 g/dL (2.9-4.4); Alpha-1-Globulins 0.2 g/dL (0.0-0.4); Alpha-2-Globulins 0.8 g/dL (0.4-1.0); Cytoplasmic Ab (C-ANCA) <1:20 titer (Neg:<1:20); Gamma Globulin 0.8 g/dL (0.4-1.8); Immunoglobulin A 175 mg/dL (87-352); Immunoglobulin G 768 mg/dL (700-1600); Immunoglobulin M 120 mg/dL (26-217); PROEL- TOTAL PROTEIN 5.9 g/dL (6.0-8.5); PROELU- Albumin, Urine 26.2 % (.); PROELU- Alpha-1-Globulin,Ur 2.9 % (.); PROELU- Beta Globulin, Ur 29.1 % (.); PROELU- Gamma Globulin, Ur 30.9 % (.); Total Protein, Ur 98.1 mg/dL (Not Estab.)
[2018-08-23 12:59] LABS: Perinuclear Ab (P-ANCA) <1:20 titer (Neg:<1:20)
== END ==
PROVIDERS: Family Provider Internal Medicine; PCP Internal Medicine; Referring Provider Psychiatry & Neurology Neurology; Visit Provider Psychiatry & Neurology Neurology
DX: E11.40 Type 2 diabetes mellitus with diabetic neuropathy, unspecified (principal)
CPT/HCPCS: 36415; 82607; 82784; 83036; 84165; 84166; 84443; 85652; 86038; 86235; 86256; 86334; 86335; 86431

== ENCOUNTER → 2018-08-29 | Outpatient (CLI) | payer MEDICARE, MEDICAID, SELFPAY ==
[2018-07-07 10:43] VITALS: BMI 34.4
--- NOTE | 2018-08-29 13:32 | MRI_ITS ---
STUDY: MRI BRAIN WITHOUT CONTRAST REASON FOR EXAM: Female, 68 years old. Falls with headache and dizziness TECHNIQUE: Standardized multiplanar fat and water weighted pulse sequences were obtained. COMPARISON: CT of the brain October 05, 2005 FINDINGS: Mild atrophy and periventricular white matter ischemic changes without mass effect or restricted diffusion.. Normal bilateral basal ganglia. Normal thalami. There is no extra-axial fluid accumulation. Normal flow voids within the major intracranial circulation suggesting patency by spin echo criteria. Normal sella turcica, pituitary gland, infundibular stalk, optic chiasm and hypothalamus. Normal tectal plate and pineal gland. Normal midbrain, lucian and medulla. Normal cerebellum. Normal basal cisterns. Normal bilateral temporal bones. Normal bilateral internal auditory canals. Postsurgical changes of the orbits.. Minor mucosal thickening of the ethmoid air cells.. Normal calvarium and skull base. Normal visualized soft tissue structures. Normal visualized upper cervical spine. MRI/Brain without Contrast IMPRESSION: Minor atrophy and periventricular white matter ischemic changes.. No evidence for acute infarct. No focal intracranial bleed. Electronically Signed: Mark Baig MD at 16:03 EDT , Service support ,
--- NOTE | 2018-08-29 13:33 | MRI_ITS ---
STUDY: MRI CERVICAL SPINE WITHOUT CONTRAST REASON FOR EXAM: Female, 68 years old. Trauma possible cervical myelopathy TECHNIQUE: Standardized fat and water weighted pulse sequences were obtained in the sagittal and axial planes. COMPARISON: None FINDINGS: Normal foramen magnum and brainstem-cervical cord junction. Normal craniovertebral junction. Normal anterior atlantoaxial articulation. Normal odontoid process. Normal cervical lordosis. Normal vertebral bodies and posterior osseous elements. C2-3: Normal endplates. Normal disc height, signal and morphology. Normal central canal and intervertebral neural foramina. C3-4: Normal endplates. Normal disc height, signal and tiny central disc protrusion. Normal central canal. Moderate left neural foraminal encroachment secondary to bony hypertrophy C4-5: Normal endplates. Normal disc height, signal and tiny central disc protrusion. Normal central canal and intervertebral neural foramina. C5-6: Narrowed disc space and endplate spurring with minor bulging disc osteophyte complex. Mild narrowing of the central canal. Moderate left neuroforaminal stenosis and more severe narrowing on the right secondary to bony hypertrophy C6-7: Narrowed disc space and minor endplate spurring. No focal disc protrusion. Normal central canal. Mild bilateral neural foraminal encroachment secondary to bony hypertrophy. C7-T1: Normal endplates. Normal disc height, signal and morphology. Normal central canal and intervertebral neural foramina. Normal cervical cord. Normal visualized soft tissue structures. MRI/Spine Cervical (Routine) IMPRESSION: No evidence for acute fracture or subluxation. Moderate spondylosis most pronounced at C5-6 and C6-7. Multilevel spinal stenosis secondary to disc disease and bony hypertrophy most severe at C5-6. Findings as above Electronically Signed: Mark Baig MD at 16:11 EDT , Service support ,
== END | disposition home or self-care (01) ==
LOC: MRI 13:28
PROVIDERS: Family Provider Internal Medicine; PCP Internal Medicine; Referring Provider Psychiatry & Neurology Neurology; Visit Provider Psychiatry & Neurology Neurology
DX: R51 Headache (principal); R42 Dizziness and giddiness; R29.6 Repeated falls
CPT/HCPCS: 70551; 72141

== ENCOUNTER → 2018-10-20 13:16 | Outpatient (CLI) | payer MEDICARE, MEDICAID, SELFPAY ==
[2018-07-07 10:43] VITALS: BMI 34.4
--- NOTE | 2018-10-20 13:45 | MRI_ITS ---
HISTORY:back pain, compression deformity of vertebrae, s/p lumbar fusion 06/2018, stenosis MR Spine Lumbar W/O Contrast Technique:Sagittal T1-T2 and STIR and axial T1 and T2-weighted images # of images including paperwork:123 Comparison:May 03, 2018 Findings: There is no evidence of an acute fracture There is grade 2 anterior spondylolisthesis of L5 on S1 that was present on the prior study There is anterior wedging of the L3 vertebral body however it does not appear acute. This was not seen on the prior study however no abnormal T2 or STIR signal is seen within the vertebral body. Postsurgical changes are seen from the level of L4-S1. This was not seen on the prior study The conus ends at the T12-L1 disc space and appears within normal limits. T12-L1: Disc height and hydration are preserved. There is no evidence of the disc contour abnormality or canal stenosis. No significant neural foraminal narrowing or nerve root impingement. L1-2:Disc desiccation. Minimal annular bulge. No canal stenosis. No neural foraminal narrowing or nerve root impingement L2-3:Minimal annular bulge asymmetric to the left. No canal stenosis. There is mild facet arthrosis. No significant neural foraminal narrowing or nerve root impingement L3-4:There is an anterior intravertebral disc protrusion at L3. Diffuse annular bulge. Trefoil appearance of the canal. There are pedicle screws at L4. Ligamentum flavum hypertrophy. No central canal stenosis. There is moderate bilateral neural foraminal narrowing. Grade 1 retrolisthesis of 3 on L4 that was also not present on the prior study. No significant nerve impingement. L4-5:Grade 1 retrolisthesis of L4 on L5 that was present on the prior study. There is a diffuse annular bulge. Trefoil appearance the canal. There are pedicle screws within the 4 body. Moderate bilateral neural foraminal narrowing. There is effacement of the right L4 nerve root within the neural foramen L5-S1:Modic type II changes of the endplate. Grade 2 anterior spondylolisthesis L5 on S1 unchanged from prior study. Pedicle screws are seen at S1. There is a diffuse annular bulge. Moderate left and mild to moderate right neural foraminal narrowing. There is impingement of the left L5 nerve root within the foramen. Probable mild effacement of the right L5 nerve root within the foramen were poorly visualized MRI/Spine Lumbar (Routine) IMPRESSION: Postsurgical changes from the level of L4-S1. There is anterior wedging of the L3 vertebral body was not present on the prior study however does not appear acute. Anterior intravertebral disc protrusion at this level. There is also grade 1 retrolisthesis of L3 on L4 that was not present on the prior study Grade 1 retrolisthesis of L4 on L5 that was present on the prior study as well as grade 2 anterior spondylolisthesis of L5 on S1 unchanged from prior study Trefoil appearance of the canal at the level L3-4 and L4-5 L4-5 effacement of the right L4 nerve root within the foramen L5-S1 effacement of the left L5 nerve root within the foramen and probably the right L5 nerve root though poorly visualized on this study at 1927 Reported and signed by: Christa Henning DO Electronically Signed: Christa Henning DO at 19:26 EDT Tel , Service support ,
== END ==
PROVIDERS: Family Provider Internal Medicine; PCP Internal Medicine; Referring Provider Orthopaedic Surgery Orthopaedic Surgery of the Spine; Visit Provider Orthopaedic Surgery Orthopaedic Surgery of the Spine
DX: M43.9 Deforming dorsopathy, unspecified (principal); M99.83 Other biomechanical lesions of lumbar region; M51.36 Other intervertebral disc degeneration, lumbar region; Z98.1 Arthrodesis status
CPT/HCPCS: 72148

== ENCOUNTER 2019-05-02 16:25 | Emergency (ER) | payer MEDICARE, MEDICAID, SELFPAY ==
[2019-05-02 15:46] VITALS: BMI 34.4
[2019-05-02 16:26] VITALS: BP 113/76; PULSE 86; RESP 16; TEMP 36.4
[2019-05-02 16:29] VITALS: BP 113/76; PULSE 86; RESP 16; TEMP 36.4; BMI 26.4
--- NOTE | 2019-05-02 17:01 | EKG12_ITS ---
Test Reason : SYNCOPE Blood Pressure : / mmHG Vent. Rate : 061 BPM Atrial Rate : 061 BPM P-R Int : 210 ms QRS Dur : 096 ms QT Int : 466 ms P-R-T Axes : 071 027 041 degrees QTc Int : 469 ms Sinus rhythm with 1st degree A-V block Low voltage QRS Borderline ECG Confirmed by MAURY JACOBS, PLACIDO ([id number]), loan expeditor YOANDY PANDEY ([id number]) on 05/07/2019 11:26:02 AM Referred By: CLINTON/SCAR Confirmed By:MERCEDES MENDIOLA MD
--- NOTE | 2019-05-02 17:03 | ED.DCSUM_ITS ---
- ER Visit Summary Date of Service: 05/02/19 Chief Complaint: Diarrhea and passed out in the doctor's office History of Present Illness: The patient is a 68 F history of insulin-dependent diabetes, hypertension and renal insufficiency. Patient states and family states that she has had diarrhea for 6 months worse since last week. No nausea or vomiting. No melena. No headache, chest pain, shortness of breath or abdominal pain. No fever or chills. No dysuria. Patient was at her doctor's office today she felt lightheaded and passed out. Denies any injuries. Physical Examination: Older female no acute distress initial blood pressure 133/76. Temperature 97.6. Heart rate 86. Respiratory rate 16. H EENT exam unremarkable. Dry mucous membranes. Neck nontender no lymphadenopathy. Lungs clear to auscultation bilaterally. Heart regular rhythm no murmur. Abdomen soft nontender normal bowel sounds no peritoneal signs. Strength is moves all 4. Calves nontender no edema no cords. Normal range of motion. Neurologically she is awake alert with no focal motor deficits. Skin no rashes. Test Results: Chest x-ray showed no acute abnormality portable read by myself. CBC white count of 6. Hemoglobin 9.7 which is the patient's baseline anemia. Electrolytes show potassium of 3.1 consistent with her recent diarrhea. BUN and creatinine consistent with dehydration with a BUN of 52 creatinine 2.68. Prior creatinine 2.1. Troponin normal. Orthostatic vital signs negative. Repeat exam at 1836 patient doing well. She was treated a liter normal saline. Emergency Department Course and Treatment: Patient had a syncopal event most likely. From dehydration from the diarrhea. She will be worked up. Given a liter normal saline. Orthostatic vital signs. Treatment Plan: Fluids and rest. Follow-up with your doctor. Will need her potassium level rechecked and her kidney function. Disposition: Discharge Impression: Acute syncope Acute on chronic diarrhea Dehydration Mild hypokalemia This note was generated with [employer] dictation software. It may contain incorrect words, spelling, and punctuation that were not noted in review of the chart prior to signing ED Disposition - Plan for ED Patient: Referrals: Riacrdo Cao MD [Primary Care Provider] -
--- NOTE | 2019-05-02 17:10 | RAD_ITS ---
STUDY: X-RAY CHEST REASON FOR EXAM: Female, 68 years old. CHEST PAIN, SYNCOPE TECHNIQUE: Frontal view of the chest COMPARISON: None. FINDINGS: There is a cortical nodule in the left lower lung. There is no pneumonia. There is no demonstrated pleural abnormality. Normal size heart. Normal mediastinum and celia. Normal visualized pulmonary arteries. Normal visualized aortic arch and descending thoracic aorta. Normal visualized thoracic spine. There is a questionable focal lesion or unusual degeneration in the superolateral humerus, possibly related to prior trauma. There is no demonstrated abnormality of the visualized soft tissue structures of the upper abdomen. RAD/Chest 1 View (Portable) IMPRESSION: Possible left lung nodule, refer to confirmatory imaging. Right humeral finding, incompletely evaluated, refer to elective dedicated images. This does not require emergency workup. Electronically Signed: Amrit Angeles, at 17:21 EDT Tel , Service support ,
[2019-05-02 17:13] LABS: Absolute Lymphocyte Count 0.95 X10^3/uL (0.83-4.51); Absolute Neutrophil Count 4.8 X10^3/uL (2.0-7.7); Basophil# 0.03 X10^3/uL; Basophil% 0.5 % (0-1); Eosinophil# 0.16 X10^3/uL; Eosinophils% 2.5 % (0-5); Hematocrit 35.1 % (37-47); Hemoglobin 11.7 g/dL (12.0-15.0); Lymphocyte # 0.95 X10^3/ul (4.0); Mean Corp Hgb Conc 33.3 g/dL (32-36); Mean Corpuscular Hgb 30.2 pg (27.0-32.0); Mean Corpuscular Volume 90.5 fL (81-99); Monocyte# 0.39 X10^3/uL; Monocyte% 6.1 % (0-10); NRBC Flagged by Analyzer 0 % (0-5); Neutrophil # 4.77 X10^3/uL (2.7-7.7); Neutrophil % 75.1 % (47-70); Platelet Count 438 K/mm3 (150-450); RBC Distribution Width CV 14.6 % (11.6-14.6); RBC Distribution Width SD 48.3 fl (35.1-43.9); Red Blood Count 3.88 M/mm3 (4.2-5.4); White Blood Count 6.4 K/mm3 (4.4-11.0)
[2019-05-02] MEDS: 0.9% Normal Saline 1,000 ML 1000 ML IV (17:18)
[2019-05-02 17:28] LABS: Anion Gap 10 (5-15); BUN 52 mg/dL (7-18); BUN/Creat Ratio 19.4 RATIO (10-20); Calcium,Total 9.4 mg/dL (8.5-10.1); Chloride 102 mmol/L (98-107); Creatinine, Serum 2.68 mg/dL (0.55-1.02); EST Glomerular Filtration Rate 19 mL/min (>60); Est Glom Filt Rate - Afr Amer 23 mL/min (>60); Estimated Creatinine Clearance 16.11 ml/min; Glucose 244 mg/dL (74-106); Potassium 3.1 mmol/L (3.5-5.1); Sodium Level 134 mmol/L (136-145)
[2019-05-02 17:50] VITALS: BP 109/77; BP 114/63; BP 126/92; PULSE 64; PULSE 70; PULSE 72
--- NOTE | 2019-05-02 18:39 | ED.DEP ---
ED Disposition - Plan for ED Patient: Disposition: Home or Assisted Living Instructions: DEHYDRATION (7y-Adult), Hypokalemia Prescriptions: Potassium Chloride [K-Dur] 20 meq PO DAILY #7 tab Prescription Printed Referrals: Ricardo Cao MD [Primary Care Provider] - 3-5 Days Additional Instructions: Follow-up with your doctor. You will need your electrolytes and kidney function rechecked. Plenty of fluids and rest. You were dehydrated. Also your potassium is low due to the diarrhea. I put her on potassium for the next 7 days. Imodium as needed for diarrhea.
[2019-05-02 18:54] VITALS: BP 110/77; PULSE 66; RESP 18; O2SAT 98
== END 2019-05-02 19:00 | disposition home or self-care (01) ==
PROVIDERS: Emergency Provider Emergency Medicine; PCP Internal Medicine
DX: R55 Syncope and collapse (principal); R19.7 Diarrhea, unspecified; E86.0 Dehydration; E87.6 Hypokalemia; E11.9 Type 2 diabetes mellitus without complications; I10 Essential (primary) hypertension; Z79.4 Long term (current) use of insulin
CPT/HCPCS: 71045; 80048; 84484; 85025; 93005; 99285; J7030; A4216

== ENCOUNTER → 2019-12-18 15:16 | Outpatient (CLI) | payer MEDICARE, MEDICAID, SELFPAY ==
[2019-12-18 14:21] VITALS: BMI 25.2
[2019-12-18 15:46] LABS: Bacteria 0 SEEN /hpf (None Seen); Mucous, Urine 0 SEEN /hpf (<or=2+)
[2019-12-18 17:08] LABS: Color, Urine Yellow (Yellow); Glucose, Dipstick 50 mg/dl (Normal); Ketone-Dipstick 5 mg/dl (Negative); Leukocyte Esterase-Dipstick 500 /ul (Negative); Nitrite-Dipstick Negative (Negative); Occult Blood-Urine 10 /ul (Negative); Protein-Dipstick 30 mg/dl (Negative); Urine Clarity Sl. Cloudy (Clear); Urine Urobilinogen Normal (Normal)
[2019-12-18 17:20] LABS: Absolute Lymphocyte Count 1.18 X10^3/uL (0.83-4.51); Absolute Neutrophil Count 2.9 X10^3/uL (2.0-7.7); Basophil# 0.04 X10^3/uL; Basophil% 0.8 % (0-1); Eosinophil# 0.51 X10^3/uL; Hematocrit 32.9 % (37-47); Lymphocyte # 1.18 X10^3/ul (4.0); Lymphocyte % 23.2 % (19-41); Mean Corp Hgb Conc 30.4 g/dL (32-36); Mean Corpuscular Hgb 30.3 pg (27.0-32.0); Mean Corpuscular Volume 99.7 fL (81-99); Mean Platelet Vol. 9.4 fl (6.2-12.0); Monocyte# 0.41 X10^3/uL; Monocyte% 8.1 % (0-10); NRBC Flagged by Analyzer 0 % (0-5); Neutrophil # 2.92 X10^3/uL (2.7-7.7); Neutrophil % 57.3 % (47-70); Platelet Count 329 K/mm3 (150-450); RBC Distribution Width CV 17.3 % (11.6-14.6); RBC Distribution Width SD 64.2 fl (35.1-43.9); White Blood Count 5.1 K/mm3 (4.4-11.0)
[2019-12-18 17:25] LABS: Urine Bilirubin Dipstick 1 mg/dL (Negative)
[2019-12-18 17:28] LABS: Amorphous Sediment 1+ URATE; Red Blood Cells-Urine 0-5 SEEN /hpf (0-5); Squamous Epithelial Cells - UA 0-5 SEEN /hpf (5-10); White Blood Cells 50-100 SEEN /hpf (0-5)
[2019-12-18 17:36] LABS: ALB/GLOB Ratio 1.1 RATIO (0.9-2.4); AST(SGOT) 7 U/L (15-37); Alanine Aminotransfer ALT/SGPT 15 U/L (13-56); Albumin, Serum 3.5 g/dL (3.2-5.0); Alkaline Phosphatase 73 U/L (45-117); Anion Gap 7 (5-15); BUN 30 mg/dL (7-18); BUN/Creat Ratio 14.9 RATIO (10-20); Calcium,Total 9.3 mg/dL (8.5-10.1); Chloride 105 mmol/L (98-107); Creatinine, Serum 2.02 mg/dL (0.55-1.02); EST Glomerular Filtration Rate 26 mL/min (>60); Est Glom Filt Rate - Afr Amer 32 mL/min (>60); Globulin 3.2 g/dL (2.2-4.2); Glucose 227 mg/dL (74-106); Potassium 4.6 mmol/L (3.5-5.1); Protein, Total 6.7 g/dL (6.4-8.2); Sodium Level 134 mmol/L (136-145)
[2019-12-18 17:39] LABS: Microalbumin:Creatinine Ratio 35.4 mg/g CRE (<30 mg/g CRE)
[2019-12-19 08:59] LABS: Ferritin 21 ng/mL (8-252); Iron 48 ug/dL (50-170); Iron Binding Capacity,Total 306 ug/dL (250-450)
== END ==
PROVIDERS: PCP Internal Medicine; Referring Provider Internal Medicine; Visit Provider Internal Medicine
DX: R10.9 Unspecified abdominal pain (principal); F31.9 Bipolar disorder, unspecified; E11.9 Type 2 diabetes mellitus without complications; D64.9 Anemia, unspecified
CPT/HCPCS: 36415; 80053; 81001; 82043; 82570; 82728; 83540; 83550; 85025

== ENCOUNTER → 2020-01-01 13:48 | Outpatient (CLI) | payer MEDICARE, MEDICAID, SELFPAY ==
[2019-12-18 14:21] VITALS: BMI 25.2
--- NOTE | 2020-01-01 14:12 | CT_ITS ---
STUDY: CT ABDOMEN AND PELVIS WITHOUT CONTRAST REASON FOR EXAM: Female, 69 years old. BILAT FLANK PAIN RADIATION DOSAGE (If Supplied By Facility): CTDIvol = ( 11.80 ) mGy, DLP = ( 507.91 ) mGycm TECHNIQUE: Transaxial images were obtained from the dome of the diaphragm to the symphysis pubis without oral contrast, and without intravenous contrast. Sagittal and coronal images were reconstructed. Individualized dose optimization techniques were used for this CT. COMPARISON: None. FINDINGS: Calcified granuloma in the anterior aspect of the left lower lobe. The visualized portions of the heart are within normal limits. Normal liver. There are surgical clips in the gallbladder fossa consistent with a prior cholecystectomy. There is a benign calcified granuloma of the spleen. Normal pancreas. Normal bilateral adrenal glands. Normal right kidney. Normal left kidney. Normal visualized stomach. Normal small intestine. There are multiple colonic diverticula consistent with diverticulosis. The appendix is visualized and appears normal. There is diffuse atherosclerotic calcification of the abdominal aorta and its major visceral branches, without a demonstrated aneurysm. Normal inferior vena cava. Normal retroperitoneum. Normal urinary bladder. Normal abdominal wall. Prior laminectomy and screw fixation at the L4-L5 and L5-S1 levels. Grade 2 anterolisthesis of L5 on S1 with disc space narrowing. 50% loss of height of the L1 and L3 vertebrae. CT/Abdomen/Pelvis without Cont IMPRESSION: Prior cholecystectomy. Sigmoid diverticulosis. Electronically Signed: Haider Leger, at 15:10 EST , Service support ,
== END ==
LOC: US 13:49 → CT 14:13
PROVIDERS: PCP Internal Medicine; Referring Provider Internal Medicine; Visit Provider Internal Medicine
DX: R10.31 Right lower quadrant pain (principal); G89.29 Other chronic pain; R10.32 Left lower quadrant pain
CPT/HCPCS: 74176

== ENCOUNTER → 2020-01-17 14:08 | Outpatient (CLI) | payer MEDICARE, MEDICAID, SELFPAY ==
[2020-01-17 13:29] VITALS: BMI 26.5
[2020-01-17 16:48] LABS: Absolute Lymphocyte Count 0.77 X10^3/uL (0.83-4.51); Absolute Neutrophil Count 3.4 X10^3/uL (2.0-7.7); Basophil# 0.06 X10^3/uL; Basophil% 1.2 % (0-1); Eosinophil# 0.44 X10^3/uL; Eosinophils% 8.9 % (0-5); Hemoglobin 10.2 g/dL (12.0-15.0); Lymphocyte # 0.77 X10^3/ul (4.0); Lymphocyte % 15.5 % (19-41); Mean Corp Hgb Conc 30.9 g/dL (32-36); Mean Corpuscular Hgb 31.4 pg (27.0-32.0); Mean Corpuscular Volume 101.5 fL (81-99); Monocyte# 0.26 X10^3/uL; Monocyte% 5.2 % (0-10); NRBC Flagged by Analyzer 0 % (0-5); Neutrophil # 3.41 X10^3/uL (2.7-7.7); Neutrophil % 68.8 % (47-70); Platelet Count 303 K/mm3 (150-450); RBC Distribution Width CV 14.4 % (11.6-14.6); RBC Distribution Width SD 53.8 fl (35.1-43.9); Red Blood Count 3.25 M/mm3 (4.2-5.4)
[2020-01-17 17:15] LABS: Anion Gap 7 (5-15); BUN 33 mg/dL (7-18); BUN/Creat Ratio 16.2 RATIO (10-20); Calcium,Total 9.5 mg/dL (8.5-10.1); Chloride 109 mmol/L (98-107); Creatinine, Serum 2.04 mg/dL (0.55-1.02); EST Glomerular Filtration Rate 26 mL/min (>60); Est Glom Filt Rate - Afr Amer 31 mL/min (>60); Ferritin 13 ng/mL (8-252); Glucose 356 mg/dL (74-106); Iron 110 ug/dL (50-170); Iron Binding Capacity,Total 430 ug/dL (250-450); PERCENT IRON SATURATION 25.6 % (15.0-55.0); Potassium 5.7 mmol/L (3.5-5.1); Sodium Level 135 mmol/L (136-145)
== END ==
PROVIDERS: PCP Internal Medicine; Referring Provider Internal Medicine; Visit Provider Internal Medicine
DX: N28.9 Disorder of kidney and ureter, unspecified (principal)
CPT/HCPCS: 36415; 80048; 82728; 83540; 83550; 85025

== ENCOUNTER → 2020-04-11 09:49 | Outpatient (CLI) | payer MEDICARE, MEDICAID, SELFPAY ==
[2020-04-11 09:33] VITALS: BMI 27.4
[2020-04-11 13:35] LABS: ALB/GLOB Ratio 1.1 RATIO (0.9-2.4); AST(SGOT) 16 U/L (15-37); Alanine Aminotransfer ALT/SGPT 17 U/L (13-56); Albumin, Serum 3.4 g/dL (3.2-5.0); Alkaline Phosphatase 117 U/L (45-117); Anion Gap 11 (5-15); BUN 41 mg/dL (7-18); BUN/Creat Ratio 18.8 RATIO (10-20); Calcium,Total 9.2 mg/dL (8.5-10.1); Chloride 110 mmol/L (98-107); Creatinine, Serum 2.18 mg/dL (0.55-1.02); EST Glomerular Filtration Rate 24 mL/min (>60); Est Glom Filt Rate - Afr Amer 29 mL/min (>60); Glucose 205 mg/dL (74-106); Potassium 5.1 mmol/L (3.5-5.1); Protein, Total 6.4 g/dL (6.4-8.2); Sodium Level 139 mmol/L (136-145)
== END ==
PROVIDERS: PCP Internal Medicine; Referring Provider Internal Medicine; Visit Provider Internal Medicine
DX: E11.9 Type 2 diabetes mellitus without complications (principal); N18.4 Chronic kidney disease, stage 4 (severe)
CPT/HCPCS: 36415; 80053

== ENCOUNTER → 2023-03-14 | Outpatient (REF) | payer MEDICARE, MEDICAID, SELFPAY ==
[2023-03-14 08:56] LABS: Absolute Lymphocyte Count 0.62 X10^3/uL (0.83-4.51); Absolute Neutrophil Count 5.1 X10^3/uL (2.0-7.7); Basophil# 0.04 X10^3/uL; Basophil% 0.6 % (0-1); Eosinophil# 0.66 X10^3/uL; Hematocrit 27.2 % (37-47); Hemoglobin 9.2 g/dL (12.0-15.0); Lymphocyte # 0.62 X10^3/ul (0.83-4.51); Lymphocyte % 9.4 % (19-41); Mean Corp Hgb Conc 33.8 g/dL (32-36); Mean Corpuscular Hgb 28.9 pg (27.0-32.0); Mean Corpuscular Volume 85.5 fL (81-99); Mean Platelet Vol. 9.3 fl (6.2-12.0); Monocyte# 0.19 X10^3/uL; Monocyte% 2.9 % (0-10); NRBC Flagged by Analyzer 0 % (0-5); Neutrophil # 5.06 X10^3/uL (2.7-7.7); Neutrophil % 76.5 % (47-70); Platelet Count 254 K/mm3 (150-450); RBC Distribution Width CV 12.7 % (11.6-14.6); RBC Distribution Width SD 39.7 fl (35.1-43.9); Red Blood Count 3.18 M/mm3 (4.2-5.4); White Blood Count 6.6 K/mm3 (4.4-11.0)
[2023-03-14 09:02] LABS: Anion Gap 4 (5-15); BUN 20 mg/dL (7-18); BUN/Creat Ratio 12.5 RATIO (10-20); Calcium,Total 8.7 mg/dL (8.5-10.1); Chloride 92 mmol/L (98-107); EST Glomerular Filtration Rate 34 mL/min (>60); Est Glom Filt Rate - Afr Amer 41 mL/min (>60); Glucose 109 mg/dL (74-106); Potassium 4.4 mmol/L (3.5-5.1); Sodium Level 123 mmol/L (136-145)
== END ==
LOC: OLS.SW 05:10
PROVIDERS: PCP Internal Medicine; Visit Provider Internal Medicine
DX: E11.9 Type 2 diabetes mellitus without complications (principal)
CPT/HCPCS: 36415; 80048; 83735; 85025

== ENCOUNTER → 2023-03-18 | Outpatient (REF) | payer MEDICARE, MEDICAID, SELFPAY ==
[2023-03-18 09:19] LABS: Anion Gap 7 (5-15); BUN 22 mg/dL (7-18); BUN/Creat Ratio 14.1 RATIO (10-20); Calcium,Total 8.8 mg/dL (8.5-10.1); Chloride 104 mmol/L (98-107); Creatinine, Serum 1.56 mg/dL (0.55-1.02); EST Glomerular Filtration Rate 35 mL/min (>60); Est Glom Filt Rate - Afr Amer 42 mL/min (>60); Glucose 87 mg/dL (74-106); Sodium Level 131 mmol/L (136-145)
== END ==
LOC: OLS.SW 05:00
PROVIDERS: PCP Internal Medicine; Visit Provider Internal Medicine
DX: I12.9 Hypertensive chronic kidney disease with stage 1 through stage 4 chronic kidney disease, or unspecified chronic kidney disease (principal); N18.9 Chronic kidney disease, unspecified
CPT/HCPCS: 36415; 80048

== ENCOUNTER → 2023-03-21 | Outpatient (REF) | payer MEDICARE, MEDICAID, SELFPAY ==
[2023-03-21 08:52] LABS: Anion Gap 5 (5-15); BUN 18 mg/dL (7-18); BUN/Creat Ratio 12.9 RATIO (10-20); Calcium,Total 8.8 mg/dL (8.5-10.1); Chloride 111 mmol/L (98-107); EST Glomerular Filtration Rate 39 mL/min (>60); Est Glom Filt Rate - Afr Amer 48 mL/min (>60); Glucose 91 mg/dL (74-106); Potassium 3.8 mmol/L (3.5-5.1); Sodium Level 138 mmol/L (136-145)
== END ==
LOC: OLS.SW 05:00
PROVIDERS: PCP Internal Medicine; Visit Provider Internal Medicine
DX: E11.22 Type 2 diabetes mellitus with diabetic chronic kidney disease (principal); N18.9 Chronic kidney disease, unspecified; R79.9 Abnormal finding of blood chemistry, unspecified
CPT/HCPCS: 36415; 80048

== ENCOUNTER → 2023-04-11 | Outpatient (REF) | payer MEDICARE, MEDICAID, SELFPAY ==
[2023-04-11 09:33] LABS: Anion Gap 7 (5-15); BUN 24 mg/dL (7-18); BUN/Creat Ratio 15.5 RATIO (10-20); Calcium,Total 9.6 mg/dL (8.5-10.1); Chloride 101 mmol/L (98-107); Creatinine, Serum 1.55 mg/dL (0.55-1.02); EST Glomerular Filtration Rate 35 mL/min (>60); Est Glom Filt Rate - Afr Amer 42 mL/min (>60); Glucose 68 mg/dL (74-106); Potassium 3.6 mmol/L (3.5-5.1); Sodium Level 132 mmol/L (136-145)
== END ==
LOC: OLS.SW 04:00
PROVIDERS: PCP Internal Medicine; Referring Provider Internal Medicine; Visit Provider Internal Medicine
DX: N18.9 Chronic kidney disease, unspecified (principal)
CPT/HCPCS: 36415; 80048

== ENCOUNTER → 2023-04-14 | Outpatient (REF) | payer MEDICARE, MEDICAID, SELFPAY ==
[2023-04-14 09:38] LABS: Anion Gap 7 (5-15); BUN 28 mg/dL (7-18); BUN/Creat Ratio 15.6 RATIO (10-20); Calcium,Total 9.3 mg/dL (8.5-10.1); Chloride 100 mmol/L (98-107); EST Glomerular Filtration Rate 29 mL/min (>60); Est Glom Filt Rate - Afr Amer 36 mL/min (>60); Glucose 79 mg/dL (74-106); Potassium 3.7 mmol/L (3.5-5.1); Sodium Level 130 mmol/L (136-145)
== END ==
LOC: OLS.SW 05:40
PROVIDERS: PCP Internal Medicine; Visit Provider Internal Medicine
DX: E87.1 Hypo-osmolality and hyponatremia (principal)
CPT/HCPCS: 36415; 80048

== ENCOUNTER → 2023-04-22 | Outpatient (REF) | payer MEDICARE, MEDICAID, SELFPAY ==
[2023-04-22 08:39] LABS: Anion Gap 6 (5-15); BUN 23 mg/dL (7-18); BUN/Creat Ratio 13.9 RATIO (10-20); Chloride 102 mmol/L (98-107); Creatinine, Serum 1.66 mg/dL (0.55-1.02); EST Glomerular Filtration Rate 32 mL/min (>60); Est Glom Filt Rate - Afr Amer 39 mL/min (>60); Glucose 73 mg/dL (74-106); Potassium 3.7 mmol/L (3.5-5.1); Sodium Level 133 mmol/L (136-145)
== END ==
LOC: OLS.SW 05:00
PROVIDERS: PCP Internal Medicine; Visit Provider Internal Medicine
DX: E11.22 Type 2 diabetes mellitus with diabetic chronic kidney disease (principal); E78.5 Hyperlipidemia, unspecified; G43.001 Migraine without aura, not intractable, with status migrainosus; I12.9 Hypertensive chronic kidney disease with stage 1 through stage 4 chronic kidney disease, or unspecified chronic kidney disease; N18.9 Chronic kidney disease, unspecified; G47.33 Obstructive sleep apnea (adult) (pediatric)
CPT/HCPCS: 36415; 80048

== ENCOUNTER → 2023-05-02 | Outpatient (REF) | payer MEDICARE, MEDICAID, SELFPAY ==
[2023-05-02 10:18] LABS: Hemoglobin A1c 5.7 % (3.8-5.6)
== END ==
LOC: OLS.SW 05:00
PROVIDERS: PCP Internal Medicine; Visit Provider Internal Medicine
DX: E11.22 Type 2 diabetes mellitus with diabetic chronic kidney disease (principal); N18.9 Chronic kidney disease, unspecified
CPT/HCPCS: 36415; 83036